=== PATIENT | female | born 1930 | race Caucasian/White ===

== ENCOUNTER 2017-05-14 15:04 | Emergency (ER) | payer MEDICARE ==
[~2017-05-14] VITALS: Ht 152.4 cm; Wt 50.0 kg
[~2017-05-14 15:04] MED LIST: AMLO2.5T PO; ASPI81 PO; DEXI60CA3 PO; FISH100020 PO; LOSA25TA31 PO; NITR0.4S SL; TAB-TAB PO; ZOFR4TAB3 SL
[2017-05-14 15:06] VITALS: BP 164/70; PULSE 78; RESP 15; TEMP 98.2; O2SAT 98
--- NOTE | 2017-05-14 15:43 | PD ---
Physical Exam Time Seen by Provider: 15:41 Narrative 86 y/o female here for evaluation of L shoulder pain after tripping/falling this morning. Vital signs reviewed. Seen at triage desk. Awaiting bed placement. Data Data Last Documented VS Vital Signs Date Time Temp Pulse Resp B/P Pulse Ox O2 Delivery O2 Flow Rate FiO2 05/14/17 15:06 98.2 78 15 164/70 98 MDM Medical Record Reviewed: Yes Supervised Visit with OLBO: Hong Flores May 14, 2017 15:42
[2017-05-14] MEDS ORDERED: COZA100T PO (17:29)
[2017-05-14] MEDS ORDERED: NAME5TAB2 PO (17:29)
[2017-05-14] MEDS ORDERED: ZANT150T2 PO (17:29)
[2017-05-14] MEDS ORDERED: ZOCO10TA PO (17:29)
[2017-05-14] MEDS ORDERED: ARIC10TA2 PO (17:29)
[2017-05-14] MEDS ORDERED: ASPI1TAB91 PO (17:39)
--- NOTE | 2017-05-14 18:01 | PD ---
HPI Chief Complaint: Musculoskeletal Complaint Time Seen by Provider: 17:00 Travel History International Travel<30 days: No Contact w/Intl Traveler<30days: No Traveled to known affect area: No History of Present Illness HPI 86-year-old female presents emergency department for evaluation of left anterior shoulder pain. Patient reports she had a mechanical fall this morning while in her home. She reports she tripped on her slippers and fell forward injuring the left shoulder. Patient denies head injury. No loss of consciousness. Patient is not anticoagulated. She denies headache, visual changes, chest pain, shortness of breath, abdominal pain. She reports normal sensation in the left upper extremity but has pain with range of motion of the shoulder. PFSH Past Medical History Anxiety: Yes Depression: No Cancer: No Cardiovascular Problems: Yes High Cholesterol: Yes Chemotherapy: No Chest Pain: Yes Congestive Heart Failure: No Endocrine: No Gastrointestinal Disorders: No GERD: Yes Genitourinary: No Hypertension: Yes Immune Disorder: No Musculoskeletal: No Neurologic: No Psychiatric: No Reproductive: No Respiratory: No Radiation Therapy: No Tetanus Vaccination: > 5 Years ?: Not : 3 Para: 3 Past Surgical History Cholecystectomy: Yes Hysterectomy: Yes Social History Alcohol Use: No Tobacco Use: No Substance Use: No Allergies-Medications (Allergen,Severity, Reaction): Coded Allergies: No Known Allergies (Verified , 05/14/17) Reported Meds & Prescriptions Reported Meds & Active Scripts Active Reported Aspirin Adult Low Strength (Aspirin) 81 Mg Tabdr 81 Mg PO DAILY Cozaar (Losartan Potassium) 100 Mg Tab 100 Mg PO DAILY Namenda (Memantine) 5 Mg Tab 5 Mg PO BID Aricept (Donepezil HCl) 10 Mg Tablet 10 Mg PO HS Zocor (Simvastatin) 10 Mg Tab 10 Mg PO HS Zantac (Ranitidine HCl) 150 Mg Tab 150-300 Mg PO HS Take 45 minutes before bedtime Review of Systems Except as stated in HPI: all other systems reviewed are Neg General / Constitutional: No: Fever Eyes: No: Visual changes HENT: No: Headaches Cardiovascular: No: Chest Pain or Discomfort Respiratory: No: Shortness of Breath Gastrointestinal: No: Abdominal Pain Genitourinary: No: Dysuria Musculoskeletal: Positive: Other (left shoulder pain) Physical Exam Narrative GENERAL: Alert, well-appearing female in no acute distress. SKIN: Focused skin assessment warm/dry. No ecchymosis or abrasions. HEAD: Atraumatic. Normocephalic. EYES: Pupils equal and round. No scleral icterus. No injection or drainage. ENT: No nasal bleeding or discharge. Mucous membranes pink and moist. NECK: Trachea midline. No JVD. No cervical midline tenderness. CARDIOVASCULAR: Regular rate and rhythm. No murmur appreciated. CHEST: Mild left upper anterior chest wall tenderness palpation. No crepitus. RESPIRATORY: No accessory muscle use. Clear to auscultation. Breath sounds equal bilaterally. GASTROINTESTINAL: Abdomen soft, non-tender, nondistended. Hepatic and splenic margins not palpable. MUSCULOSKELETAL: No obvious deformities. No clubbing. No cyanosis. No edema. Left upper extremity: Point tenderness to the anterior left shoulder and proximal humerus. No deformity. Limited ROM. Arm held in abduction against the body. NEUROLOGICAL: Awake and alert. No obvious cranial nerve deficits. Motor grossly within normal limits. Normal speech. PSYCHIATRIC: Appropriate mood and affect; insight and judgment normal. Data Data Last Documented VS Vital Signs Date Time Temp Pulse Resp B/P Pulse Ox O2 Delivery O2 Flow Rate FiO2 05/14/17 15:06 98.2 78 15 164/70 98 Orders Shoulder, Complete (>2vws) (05/14/17 ) Chest, Single Ap (05/14/17 ) [facility] Medical Decision Making Medical Screen Exam Complete: Yes Emergency Medical Condition: Yes Differential Diagnosis Proximal humerus fracture, left shoulder dislocation, rib fracture, contusions Narrative Course 86-year-old female with chief complaint of left shoulder pain status post mechanical fall earlier today. On exam patient has point tenderness in the left anterior shoulder and proximal humerus. Patient also has mild point tenderness in the left upper anterior chest wall without crepitus. The upper extremity is neurovascularly intact. Shoulder x-ray and chest x-ray pending. Left shoulder x-ray : Acute nondisplaced fracture of the greater tuberosity. No dislocation. Chest x-ray: Mild cardiomegaly. No pneumothorax. No rib fractures. Diagnostic findings discussed with patient and family. Patient was placed in a sling. She was given pain medication. She was instructed to follow up with orthopedics. Return precautions discussed. Patient and family agree to plan. Diagnosis Primary Impression: Greater tuberosity of humerus fracture Qualified Code: S42.255A - Closed nondisplaced fracture of greater tuberosity of left humerus, initial encounter Referrals: Orthopedist Additional Instructions: With the sling as discussed. Make an appointment for follow-up with orthopedic. Take the pain medication as needed for pain. Return to the emergency department if he developed new or worsening symptoms. Scripts Hydrocodone-Acetaminophen ([place])5-325 mg Tab1 Tab PO Q6H PRN (PAIN) #15 TAB Ref 0 Prov:Sharon Hodge 05/14/17 Disposition: 01 DISCHARGE HOME Condition: Stable Sharon Hodge May 14, 2017 18:01
--- NOTE | 2017-05-14 18:31 | RADRPT ---
EXAM DATE/TIME: 05/14/2017 17:47 [facility] COMPARISON: No previous studies available for comparison. INDICATIONS : Shoulder pain from fall. MEDICAL HISTORY : None. SURGICAL HISTORY : None. ENCOUNTER: Initial ACUITY: 1 day PAIN SCORE: 5/10 LOCATION: Left shoulder FINDINGS: 4 views of the left shoulder reveal an acute fracture involving the greater tuberosity. No extension to the articular surface of the humeral head appreciated. No significant distraction of the fracture fragments. The medial cortical margin of the humeral neck appears intact. Mild degenerative changes a t the a.c. joint. Soft tissues are unremarkable. Minimal linear atelectasis within the lingula. CONCLUSION: 1. Acute nondisplaced fracture involving the greater tuberosity. Koko Alcantara Jr., MD on May 14, 2017 at 18:28 Board Certified Radiologist. This report was verified electronically.
--- NOTE | 2017-05-14 18:31 | RADRPT ---
EXAM DATE/TIME: 05/14/2017 17:51 [facility] COMPARISON: No previous studies available for comparison. INDICATIONS : Shortness of breath from fall. MEDICAL HISTORY : None. SURGICAL HISTORY : None. ENCOUNTER: Initial ACUITY: 1 day PAIN SCORE: 0/10 LOCATION: Bilateral chest FINDINGS: A single view of the chest demonstrates the lungs to be symmetrically aerated without evidence of mas s, infiltrate or effusion. Linear atelectasis is seen within the lingula. Calcified granuloma within the right midlung. Mild cardiomegaly. Osseous structures are intact. CONCLUSION: 1. Mild cardiomegaly. 2. Lingular atelectasis. Koko Alcantara Jr., MD on May 14, 2017 at 18:29 Board Certified Radiologist. This report was verified electronically.
[2017-05-14] MEDS ORDERED: NORC5TAB PO (18:50)
[2017-05-14] MEDS ORDERED: oxyCODONE/ACETAMINOPHEN 5 MG/325 MG TAB PO ONE (19:15)
== END 2017-05-14 19:30 | disposition home or self-care (01) ==
LOC: NEPD 15:04
DX: S42.255A Nondisplaced fracture of greater tuberosity of left humerus, initial encounter for closed fracture (principal); R06.02 Shortness of breath; W01.10XA Fall on same level from slipping, tripping and stumbling with subsequent striking against unspecified object, initial encounter; Y93.89 Activity, other specified; Y92.009 Unspecified place in unspecified non-institutional (private) residence as the place of occurrence of the external cause
CPT/HCPCS: 71010; 73030; 99283

== ENCOUNTER 2018-08-11 13:56 | Inpatient (IN) ==
[2018-08-11 15:23] LABS: Baso % (Auto) 0.4 % (0.0-2.0); Eos % (Auto) 0.5 % (0.0-4.0); Hematocrit 38.1 % (35.0-46.0); Hemoglobin 12.6 gm/dL (11.6-15.3); Lymph # (Auto) 0.9 th/mm3 (1.0-4.8); Lymph % (Auto) 9.7 % (9.0-44.0); Mean Corpuscular HGB Conc 33.2 % (32.0-36.0); Mean Corpuscular Hemoglobin 30.6 pg (27.0-34.0); Mean Corpuscular Volume 92.2 fL (80.0-100.0); Mean Platelet Volume 12.2 fL (7.0-11.0); Mono # (Auto) 0.6 th/mm3 (0.0-0.9); Mono % (Auto) 7.1 % (0.0-8.0); Neut # (Auto) 7.4 th/mm3 (1.8-7.7); Neut % (Auto) 82.3 % (16.0-70.0); Platelet Count 174 th/mm3 (150-450); Red Blood Count 4.13 mil/mm3 (4.00-5.30); Red Cell Distribution Width 13.6 % (11.6-17.2)
--- NOTE | 2018-08-11 15:36 | XR ---
EXAM DATE: 08/11/2018 2:23 PM EDT AGE/SEX: 88 years / Female INDICATIONS: . Chest pain with shortness of breath. CLINICAL DATA: This is the patient's initial encounter. Patient reports that signs and symptoms have been present for 1 day and indicates a pain score of 3/10. MEDICAL/SURGICAL HISTORY: Hypertension. Cholecystectomy. Hysterectomy. COMPARISON: [facility] – [place], CHEST SINGLE AP, 05/14/2017. . FINDINGS: PA and lateral views of the chest demonstrates cardiomegaly with increase in pulmonary vascularity wi th bibasilar densities. Interstitial densities and small bilateral pleural effusions.. The cardiomedi astinal contours are unremarkable. Osseous structures are intact. CONCLUSION: 1. Small bilateral pleural effusions and bibasilar densities likely atelectasis. 2. Cardiomegaly with some minimal interstitial edema. Electronically signed by: Hudson Gonzales MD 08/11/2018 3:34 PM EDT
[2018-08-11 16:28] LABS: Alanine Aminotransferase 128 U/L (10-53); Albumin 3.3 g/dL (3.4-5.0); Anion Gap 10 meq/L (5-15); Aspartate Aminotransferase 55 U/L (15-37); Blood Urea Nitrogen 24 mg/dL (7-18); Carbon Dioxide 23.5 meq/L (21.0-32.0); Chloride 110 meq/L (98-107); Glomerular Filtration Rate 46 mL/min (>89); Glucose,Random 137 mg/dL (74-106); Potassium 4.4 meq/L (3.5-5.1); Sodium 143 meq/L (136-145)
[2018-08-11 16:32] LABS: Alkaline Phosphatase 206 U/L (45-117); Troponin I 0.06 ng/mL (0.02-0.05)
--- NOTE | 2018-08-11 17:36 | ED ---
HPI General Chief Complaint: Arrhythmia / Palpitations Stated Complaint: Abd pain/irregular heart rate Time Seen by Provider: 08/11/18 17:02 History of Present Illness HPI narrative: Patient is a 88-year-old female that presents for the evaluation of abnormal heart rate and abdominal pain. The patient's son is present in the room and helps to provide some of the history. The patient's son states that the patient was seen by her regular provider last week for chronic back and right hip pain. The patient's son states that the patient was prescribed a pain medication. The patient's son states that the patient began to have upper abdominal pain last Saturday after she started the new pain medication. The patient's son stated that on Saturday he read about the side effects of the pain medication and decided to discontinue her pain medication. The patient's son states that he spoke on the phone with the patient's primary care doctor who suggested they go to the ER for further evaluation. The patient denies any current abdominal pain. She states that when she did have pain it was in the epigastric region. The patient currently denies any pain. She denies any chest pain, shortness of breath, or palpitations. She states that she has had some diarrhea for the past two day days but denies any blood in the stool. She also denies any nausea or vomiting. Related Data Home Medications Medication Instructions Recorded Confirmed aspirin [Aspirin Low Dose] 81 mg PO DAILY 08/11/18 08/11/18 losartan 50 mg PO DAILY 08/11/18 08/11/18 memantine [Namenda] 10 mg PO BID 08/11/18 08/11/18 simvastatin 10 mg PO QPM 08/11/18 08/11/18 tramadol 50 mg PO Q12HR PRN 08/11/18 08/11/18 Allergies Allergy/AdvReac Type Severity Reaction Status Date / Time No Known Allergies Allergy Uncoded 05/14/17 17:16 Review of Systems ROS: all other systems reviewed are negative [facility] Medical History Medical History Dementia (Acute) Diaphragmatic hernia without obstruction or gangrene (Acute) GERD with esophagitis (Acute) H/O: hysterectomy (Acute) High cholesterol (Acute) Hypertension (Acute) Social History Social History Substance History: No History of Abuse Second Hand Smoke Exposure: No Smoking Status: Former smoker How Often Do You Have a Drink Containing Alcohol: Never Recent Travel in [facility] within the Last 8 Weeks: No Recent Out of Country Travel within the Last 8 Weeks: No Immunization History Tetanus Immunization: Unsure Exam Narrative Exam Narrative: GENERAL: Well appearing SKIN: Focused skin assessment warm/dry. HEAD: Atraumatic. Normocephalic. EYES: Pupils equal and round. No scleral icterus. No injection or drainage. ENT: No nasal bleeding or discharge. Mucous membranes pink and moist. Tongue is midline. No uvula deviation. NECK: Trachea midline. No JVD. CARDIOVASCULAR: Regular rate and rhythm. No murmur appreciated. RESPIRATORY: No accessory muscle use. Clear to auscultation. Breath sounds equal bilaterally. GASTROINTESTINAL: Abdomen soft, non-tender, nondistended. Hepatic and splenic margins not palpable. Does have what appears to be chronic hernias to the lower abdomen MUSCULOSKELETAL: No obvious deformities. No clubbing. No cyanosis. No edema. Full range of motion of the upper and lower extremities bilaterally. 2+ pulses bilaterally. NEUROLOGICAL: Awake and alert. No obvious cranial nerve deficits. Motor grossly within normal limits. Normal speech. PSYCHIATRIC: Appropriate mood and affect; insight and judgment normal. Course Initial Documented Vital Signs Temperature 97.5 F L 08/11/18 14:03 Pulse Rate 44 L 08/11/18 14:03 Respiratory Rate 15 08/11/18 14:03 Blood Pressure 197/79 H 08/11/18 14:03 Pulse Oximetry 96 08/11/18 14:03 Last Documented Vital Signs Temperature 97.7 F 08/11/18 17:36 Pulse Rate 45 L 08/11/18 17:36 Respiratory Rate 16 08/11/18 17:36 Blood Pressure 176/70 H 08/11/18 17:36 Pulse Oximetry 97 08/11/18 17:36 Medical Decision Making MDM Narrative Medical decision making narrative: 88-year-old female who presents to the ED for evaluation of bradycardia and epigastric pain. Patient was properly examined and was found to have signs and symptoms consistent with appears to be bradycardia. Unclear etiology of the symptoms. Patient can completely asymptomatic at this time. She does have some dementia so this may attribute to why she does not complain about anything. Labs and imaging were done. Labs and imaging did show bradycardia what appears to be CHF exacerbation. At this time recommend admission for further evaluation as patient and family member have never heard of the term CHF or heart failure in the past. Patient herself does not take any diuretics. Suspect that this could potentially be a new finding. She does also have a positive troponin. This will need to be further workup and patient. Patient agrees to admission. Family agrees with admission. Case discussed with my attending who agrees to admission plan. Case discussed with Dr. Matias who agrees to admission to her service. Medical Screen Exam Complete: Yes Emergency Medical Condition: Yes Differential Diagnosis Differential Diagnosis: ACS versus bradycardia versus CHF versus ACSVersus abdominal pain Medical Records Medical records reviewed: Yes I reviewed the patient's medical records. Lab Data Lab results reviewed: Yes I reviewed the patient's lab results. Lab results narrative: Troponin elevated at 0.05 CK-MB negative. Result diagrams: 08/11/18 14:50 08/11/18 14:50 Lab Results 08/11/18 08/11/18 Range/Units 14:50 14:50 WBC 9.0 (4.0-11.0) th/mm3 RBC 4.13 (4.00-5.30) mil/mm3 Hgb 12.6 (11.6-15.3) gm/dL Hct 38.1 (35.0-46.0) % MCV 92.2 (80.0-100.0) fL MCH 30.6 (27.0-34.0) pg MCHC 33.2 (32.0-36.0) % RDW 13.6 (11.6-17.2) % Plt Count 174 (150-450) th/mm3 MPV 12.2 H (7.0-11.0) fL Neut % (Auto) 82.3 H (16.0-70.0) % Lymph % (Auto) 9.7 (9.0-44.0) % Stevens % (Auto) 7.1 (0.0-8.0) % Eos % (Auto) 0.5 (0.0-4.0) % Baso % (Auto) 0.4 (0.0-2.0) % Neut # (Auto) 7.4 (1.8-7.7) th/mm3 Lymph # (Auto) 0.9 L (1.0-4.8) th/mm3 Stevens # (Auto) 0.6 (0.0-0.9) th/mm3 Eos # (Auto) 0.0 (0.0-0.4) th/mm3 Baso # (Auto) 0.0 (0.0-0.2) th/mm3 WBC Differential . Differential Comment Auto diff final Sodium 143 (136-145) meq/L Potassium 4.4 (3.5-5.1) meq/L Chloride 110 H (98-107) meq/L Carbon Dioxide 23.5 (21.0-32.0) meq/L Anion Gap 10 (5-15) meq/L BUN 24 H (7-18) mg/dL Creatinine 1.11 H (0.50-1.00) mg/dL Estimated GFR 46 L (>89) mL/min Random Glucose 137 H (74-106) mg/dL Calcium 9.0 (8.5-10.1) mg/dL Total Bilirubin 0.4 (0.2-1.0) mg/dL AST 55 H (15-37) U/L ALT 128 H (10-53) U/L Alkaline Phosphatase 206 H (45-117) U/L Troponin I 0.06 H (0.02-0.05) ng/mL Total Protein 7.0 (6.4-8.2) g/dL Albumin 3.3 L (3.4-5.0) g/dL Imaging Data Attestation: I personally reviewed and interpreted this imaging study as follows : Radiologist's impression: Chest X-Ray 08/11/18 14:23 CONCLUSION: 1. Small bilateral pleural effusions and bibasilar densities likely atelectasis. 2. Cardiomegaly with some minimal interstitial edema. Abdomen/Pelvis CT 08/11/18 17:20 CONCLUSION: 1. Bilateral inguinal hernias with multiple loops of small bowel in the right lateral hernia. No dilated loops of small or large bowel. 2. 12 mm densely enhancing lesion in the posterior segment of the right lobe of the liver. Both malignant and benign causes can create this appearance and recommend complete workup on a nonemergent basis. 3. Moderate-sized bilateral pleural effusions and patchy bilateral lower lobe. ECG Data Attestation: I personally reviewed and interpreted this ECG as follows: Interpretation: EKG shows sinus bradycardia with no sign of acute ischemia. Read by me and attending. Discharge Plan Discharge Disposition Patient Disposition: 30 Still Patient Discharge Details Diagnosis: Acute exacerbation of CHF (congestive heart failure), Elevated troponin, Liver mass Physicians Team ED Provider: Loco Jaimes ED Midlevel Provider: Keith Brink Primary Care Provider: Rodolfo Be Attending Provider: Dee Dee Matias Discharge Interventions Interventions: Vital Signs Last Done: 08/11/18 14:03 Status ED Status: Admitted Observation Patient
--- NOTE | 2018-08-11 18:26 | CT ---
EXAM DATE: 08/11/2018 5:26 PM EDT AGE/SEX: 88 years / Female INDICATIONS: Epigastric pain and diarrhea for four days. CLINICAL DATA: This is the patient's initial encounter. Patient reports that signs and symptoms have been present for 4 - 6 days and indicates a pain score of 4/10. MEDICAL/SURGICAL HISTORY: Gastroesophageal reflux disease. Hypertension. Hernia. Hysterectomy . ORAL CONTRAST: No oral contrast ingested. RADIATION DOSE: 6.65 CTDI (mGy) COMPARISON: No prior exams available for comparison. TECHNIQUE: Multiple contiguous axial images were obtained through the abdomen and pelvis following b olus infusion of 85 ml Omnipaque 350 (iohexol) nonionic water-soluble contrast as a single exam dos e. No oral contrast ingested. Using automated exposure control and adjustment of the mA and/or kV ac cording to patient size, radiation dose was kept as low as reasonably achievable to obtain optimal di agnostic quality images. DICOM format image data is available electronically for review and comparis on. FINDINGS: Lower Lungs: Moderate size bilateral pleural effusions measuring 3.4 cm on the right and 1.8 cm on th e left. There is peribronchial thickening and partially consolidative infiltrates in both lower lungs . Liver: Normal liver size. A solitary 12 mm enhancing lesion in the posterior right lobe with fairly u niform enhancement. No associated calcification. No biliary ductal dilatation. Cholecystectomy. The c ommon hepatic duct does not appear to be dilated. Spleen: Homogeneous density without enlargement. Pancreas: Unremarkable without mass or calcification. Kidneys: Normal in size and shape. No evidence of mass or hydronephrosis. Adrenal Glands: Unremarkable. Aorta: The aorta and proximal iliac vessels are grossly unremarkable without aneurysmal dilation. Bowel/Mesentery: No dilated loops of small or large bowel. Multiple sigmoid diverticula without radi ographic evidence of diverticulitis. Abdominal Wall: Intact. Retroperitoneum: No evidence of adenopathy in the retrocrural, para-aortic, or deep pelvic regions. Bladder: Contours are smooth. Reproductive Organs: No abnormal masses or calcifications seen. Inguinal: Bilateral inguinal hernias with multiple loops of small bowel in the right inguinal hernia and fat in the left hernia. Bony Structures: Moderate degenerative changes in posterior elements of the lumbar spine.. CONCLUSION: 1. Bilateral inguinal hernias with multiple loops of small bowel in the right lateral hernia. No dil ated loops of small or large bowel. 2. 12 mm densely enhancing lesion in the posterior segment of the right lobe of the liver. Both sandra gnant and benign causes can create this appearance and recommend complete workup on a nonemergent bas is. 3. Moderate-sized bilateral pleural effusions and patchy bilateral lower lobe. Electronically signed by: Koko Polo MD 08/11/2018 6:25 PM EDT
[2018-08-11] MEDS: Heparin - SQ 10,000 UNITS/ML Vial SQ SCH (21:00)
[2018-08-11 22:23] LABS: Troponin I 0.05 ng/mL (0.02-0.05)
--- NOTE | 2018-08-11 22:34 | P.HPIM ---
History of Present Illness Service: [facility] Primary Care Physician: Rodolfo Be MD History of Present Illness: 88 y/o female with a history of dementia, gerd, htn and hld was brought to the ER by her son for complaints of abdominal pain. During examination patient's son was not at the bedside and due to to the history of dementia patient is a poor historian. She does complain of epigastric pain, worse with a deep breath, no radiation or nausea or vomiting. She was able to eat dinner tonight with no complaints. She denies any chest pain, but states she feels sob when taking a deep breath. No fevers, chills, constipation, or dysuria noted. According to the ER report they stated the son states that the patient was seen by her regular provider last week for chronic back and right hip pain. The patient's son states that the patient was prescribed a pain medication. The patient's son states that the patient began to have upper abdominal pain last Saturday after she started the new pain medication. The patient's son stated that on Saturday he read about the side effects of the pain medication and decided to discontinue her pain medication. The patient's son states that he spoke on the phone with the patient's primary care doctor who suggested they go to the ER for further evaluation. [facility] - History History Provided By: Patient - Medical History Medical History: Medical History (Last Reviewed 08/11/18 @ 23:41 by RADHA Lozano) Dementia Diaphragmatic hernia without obstruction or gangrene GERD with esophagitis High cholesterol Hypertension - Surgical History Surgical History: Surgical History (Last Reviewed 08/11/18 @ 23:41 by RADHA Lozano) H/O: hysterectomy - Family History Family History: Family History (Last Reviewed 08/11/18 @ 23:42 by RADHA Lozano) Other Family history normal - Social History I have reviewed the patient's Social History: Yes - Tobacco History Second Hand Smoke Exposure: No Tobacco Use In Past 30 Days: No Smoking Status: Former smoker Tobacco Type: Cigarettes - Alcohol History How Often Do You Have a Drink Containing Alcohol: Never - Substance Use History Substance History: No History of Abuse - Travel History Recent Travel in the [place] Within the Last 8 Weeks: No Recent Travel Out of the Country Within the Last 8 Weeks: No - Immunization History Tetanus Immunization: Unsure Medications and Allergies Active Medications: Active Medications Furosemide (Lasix Inj) 20 mg IV.PUSH ONCE ONE Stop: 08/11/18 22:17 Heparin Sodium (Porcine) (Heparin Inj) 5,000 units SQ Q12H [facility] Last Admin: 08/11/18 21:00 Dose: Not Given Losartan Potassium (Cozaar) 50 mg PO HS [facility] Last Admin: 08/11/18 20:56 Dose: 50 mg Ondansetron HCl (Zofran Inj) 4 mg IV.PUSH Q6H PRN PRN Reason: NAUSEA OR VOMITING Allergies Allergy/AdvReac Type Severity Reaction Status Date / Time No Known Allergies Allergy Uncoded 05/14/17 17:16 Home Medications Medication Instructions Recorded Confirmed Type aspirin [Aspirin Low Dose] 81 mg PO DAILY 08/11/18 08/11/18 History losartan 50 mg PO DAILY 08/11/18 08/11/18 History memantine [Namenda] 10 mg PO BID 08/11/18 08/11/18 History simvastatin 10 mg PO QPM 08/11/18 08/11/18 History tramadol 50 mg PO Q12HR PRN 08/11/18 08/11/18 History Exam Vital signs: Vital Signs 08/11/18 14:03 08/11/18 16:21 08/11/18 16:24 Temperature 97.5 F L 98.0 F Pulse Rate 44 L 50 L 44 L Respiratory Rate 15 22 Blood Pressure 197/79 H 202/85 H Pulse Oximetry 96 91 L 08/11/18 16:32 08/11/18 17:36 08/11/18 19:20 Temperature 97.7 F Pulse Rate 42 L 45 L 46 L Respiratory Rate 21 16 18 Blood Pressure 193/80 H 176/70 H 172/71 H Pulse Oximetry 94 L 97 96 08/11/18 22:04 Temperature Pulse Rate 49 L Respiratory Rate 16 Blood Pressure 118/76 Pulse Oximetry 96 Intake & Output 08/11/18 08/11/18 08/12/18 06:59 18:59 06:59 Intake Total 340 / 340 Balance 340 / 340 Weight 54.431 kg Intake: Oral 340 / 340 Narrative: GENERAL: This is a well-nourished, well-developed patient, in no apparent distress. CARDIOVASCULAR:bradycardic rate and rhythm without murmurs, gallops, or rubs. RESPIRATORY: bilateral lower bases crackles GASTROINTESTINAL: Abdomen soft, epigastric tenderness, nondistended. Normal active bowel sounds MUSCULOSKELETAL: +1 pedal pitting edema bilateral NEURO: Alert & Oriented x2-3. Moves all ext x4 Results - Labs CBC & Chem 7: 08/11/18 14:50 08/11/18 14:50 Labs: Short CBC 08/11/18 Range/Units 14:50 WBC 9.0 (4.0-11.0) th/mm3 Hgb 12.6 (11.6-15.3) gm/dL Hct 38.1 (35.0-46.0) % Plt Count 174 (150-450) th/mm3 BMP 08/11/18 14:50 Sodium 143 Potassium 4.4 Chloride 110 H Carbon Dioxide 23.5 BUN 24 H Creatinine 1.11 H Calcium 9.0 Cardiac Enzymes 08/11/18 Range/Units 14:50 Troponin I 0.06 H (0.02-0.05) ng/mL Liver Function 08/11/18 Range/Units 14:50 Total Bilirubin 0.4 (0.2-1.0) mg/dL AST 55 H (15-37) U/L ALT 128 H (10-53) U/L Alkaline Phosphatase 206 H (45-117) U/L Albumin 3.3 L (3.4-5.0) g/dL - Imaging Impressions Chest X-Ray 08/11/18 14:23 CONCLUSION: 1. Small bilateral pleural effusions and bibasilar densities likely atelectasis. 2. Cardiomegaly with some minimal interstitial edema. Abdomen/Pelvis CT 08/11/18 17:20 CONCLUSION: 1. Bilateral inguinal hernias with multiple loops of small bowel in the right lateral hernia. No dilated loops of small or large bowel. 2. 12 mm densely enhancing lesion in the posterior segment of the right lobe of the liver. Both malignant and benign causes can create this appearance and recommend complete workup on a nonemergent basis. 3. Moderate-sized bilateral pleural effusions and patchy bilateral lower lobe. Caprini VTE Risk Assessment Caprini VTE Risk Assessment: No/Low Risk (score <= 1) Caprini Risk Assessment Model: Point Value = 1 Point Value = 2 Point Value = 3 Point Value = 5 Age 41-60 Minor surgery BMI > 25 kg/m2 Swollen legs Varicose veins or History of unexplained or recurrent spontaneous Oral contraceptives or hormone replacement Sepsis (< 1 month) Serious lung disease, including pneumonia (< 1 month) Abnormal pulmonary function Acute myocardial infarction Congestive heart failure (< 1 month) History of inflammatory bowel disease Medical patient at bed rest Age 61-74 Arthroscopic surgery Major open surgery (> 45 min) Laparoscopic surgery (> 45 min) Malignancy Confined to bed (> 72 hours) Immobilizing plaster cast Central venous access Age >= 75 History of VTE Family history of VTE Factor V Leiden Prothrombin [id number] Lupus anticoagulant Anticardiolipin antibodies Elevated serum homocysteine Heparin-induced thrombocytopenia Other congenital or acquired thrombophilia Stroke (< 1 month) Elective arthroplasty Hip, pelvis, or leg fracture Acute spinal cord injury (< 1 month) Prophylaxis Regimen: Total Risk Factor Score Risk Level Prophylaxis Regimen 0-1 Low Early ambulation 2 Moderate Order ONE of the following: *Sequential Compression Device (SCD) *Heparin 5000 units SQ BID 3-4 Higher Order ONE of the following medications: *Heparin 5000 units SQ TID *Enoxaparin/Lovenox 40 mg SQ daily (WT < 150 kg, CrCl > 30 mL/min) *Enoxaparin/Lovenox 30 mg SQ daily (WT < 150 kg, CrCl > 10-29 mL/min) *Enoxaparin/Lovenox 30 mg SQ BID (WT < 150 kg, CrCl > 30 mL/min) AND/OR *Sequential Compression Device (SCD) 5 or more Highest Order ONE of the following medications: *Heparin 5000 units SQ TID (Preferred with Epidurals) *Enoxaparin/Lovenox 40 mg SQ daily (WT < 150 kg, CrCl > 30 mL/min) *Enoxaparin/Lovenox 30 mg SQ daily (WT < 150 kg, CrCl > 10-29 mL/min) *Enoxaparin/Lovenox 30 mg SQ BID (WT < 150 kg, CrCl > 30 mL/min) AND *Sequential Compression Device (SCD) Assessment and Plan - Plan 88 y/o female with a history of dementia, gerd, htn and hld was brought to the ER by her son for complaints of abdominal pain. During examination patient's son was not at the bedside and due to to the history of dementia patient is a poor historian. New onset CHF, BNP [address] reviewed and shows Moderate-sized bilateral pleural effusions and patchy bilateral lower lobe. -Lasix x 1 given -Consult to cardiology -2d echo ordered Elevated troponin, troponin .06 -Serial troponin and ekg Bradycardia EKG shows bradycardia with first degree block -Monitor telemetry -Await cardiology evaluation -Monitor patient in [facility] Epigastric pain with Transaminitis Abdominal CT reviewed and shows Bilateral inguinal hernias with multiple loops of small bowel in the right lateral hernia. No dilated loops of small or large bowel, and a 12 mm densely enhancing lesion in the posterior segment of the right lobe of the liver. -Trend LFTs -Liver US ordered -Avoid hepatotoxins -Protonix IV BID -Consult GI if needed Hypertension, currently elevated -Resume home losartan -Avoid beta blockers DVT prophylaxis: Heparin sq Discussed Condition With: Patient and RN
[2018-08-11] MEDS: Pantoprazole Inj 40 MG Vial IV.PUSH SCH (23:07)
[2018-08-12] MEDS ORDERED: Sodium Chloride 0.9% 2 ML Flush PRN IV.FLUSH (03:31)
--- NOTE | 2018-08-12 08:39 | US ---
EXAM DATE: 08/12/2018 12:00 AM EDT AGE/SEX: 88 years / Female INDICATIONS: Abdominal pain after taking new medication. CLINICAL DATA: This is the patient's initial encounter. Patient reports that signs and symptoms have been present for 1 week and indicates a pain score of 0/10. MEDICAL/SURGICAL HISTORY: Dementia. Gastroesophageal reflux disease. Hypercholesterolemia. H ypertension. Diaphragmatic hernia without obstruction or gangrene. Hysterectomy. Cholecystectomy. [place] [facility] [place]. . MEASUREMENTS: Liver:__ 16.3 cm. Common Bile Duct:__ 11mm. Right Kidney:__ 9.4 x 5.2 x 3.7 cm. FINDINGS: Liver: Normal echotexture without focal lesion or ductal dilatation. Portal Vein: Hepatopedal flow seen in portal vein. Common Duct: Common bile duct is dilated measuring up to 11 mm. Gallbladder: Surgically absent. Pancreas: The visualized portions are within normal limits Right Kidney: Normal echotexture and cortical thickness. No mass or hydronephrosis. Other: Small bilateral pleural effusions. CONCLUSION: 1. Status post cholecystectomy with prominent common bile duct which may reflect reservoir effect. 2. Small enhancing mass in the posterior right lobe of the liver noted on CT exam is not demonstrate d on ultrasound exam. Again, recommend further evaluation on an outpatient nonemergent basis. 3. Small bilateral effusions. Electronically signed by: Howard Martinez MD 08/12/2018 8:38 AM EDT
--- NOTE | 2018-08-12 09:10 | P.PNIM ---
Subjective Interval history: f/u; chf with sonchristiane sob. on five liters of oxygen via N/C. awake but confused and reportedly had a fall earlier and had to be placed on restraints. denies pain. no fever. d/w the RN. Physical Exam Vital signs: Vital Signs 08/11/18 14:03 08/11/18 16:21 08/11/18 16:24 Temperature 97.5 F L 98.0 F Pulse Rate 44 L 50 L 44 L Respiratory Rate 15 22 Blood Pressure 197/79 H 202/85 H Pulse Oximetry 96 91 L 08/11/18 16:32 08/11/18 17:36 08/11/18 19:20 Temperature 97.7 F Pulse Rate 42 L 45 L 46 L Respiratory Rate 21 16 18 Blood Pressure 193/80 H 176/70 H 172/71 H Pulse Oximetry 94 L 97 96 08/11/18 22:04 08/11/18 22:46 08/12/18 02:00 Temperature Pulse Rate 49 L 49 L Respiratory Rate 16 16 Blood Pressure 118/76 160/70 H Pulse Oximetry 96 97 95 08/12/18 03:26 08/12/18 03:40 08/12/18 04:48 Temperature Pulse Rate 47 L 57 L Respiratory Rate 26 H 23 Blood Pressure 197/84 H Pulse Oximetry 96 96 08/12/18 04:53 08/12/18 05:54 08/12/18 06:38 Temperature Pulse Rate 57 L 57 L 46 L Respiratory Rate 28 H 28 H Blood Pressure 136/61 136/61 Pulse Oximetry 94 L 94 L 08/12/18 08:31 Temperature Pulse Rate 46 L Respiratory Rate 20 Blood Pressure 205/86 H Pulse Oximetry 93 L Intake & Output 08/11/18 08/12/18 08/12/18 18:59 06:59 18:59 Intake Total 340 / 340 Balance 340 / 340 Weight 54.431 kg Intake: Oral 340 / 340 Other: Date of Last Bowel Movement 08/11/18 - Constitutional mild distress - Routine Respiratory Exam Present: CTA bilaterally, diminished air movement (in the bases.) - Routine Cardiovascular Exam Present: RRR - Routine Abdominal Exam Present: soft - Routine Extremities Exam Comments: mild bilateral pedal edema. - Routine Neurological Exam Present: alert (but confused.) Results - Labs CBC & Chem 7: 08/12/18 09:38 08/12/18 09:38 Laboratory Results - last 24 hr 08/11/18 08/11/18 08/11/18 14:50 14:50 14:50 WBC 9.0 RBC 4.13 Hgb 12.6 Hct 38.1 MCV 92.2 MCH 30.6 MCHC 33.2 RDW 13.6 Plt Count 174 MPV 12.2 H Neut % (Auto) 82.3 H Lymph % (Auto) 9.7 Loving % (Auto) 7.1 Eos % (Auto) 0.5 Baso % (Auto) 0.4 Neut # (Auto) 7.4 Lymph # (Auto) 0.9 L Loving # (Auto) 0.6 Eos # (Auto) 0.0 Baso # (Auto) 0.0 WBC Differential . Differential Comment Auto diff final Sodium 143 Potassium 4.4 Chloride 110 H Carbon Dioxide 23.5 Anion Gap 10 BUN 24 H Creatinine 1.11 H Estimated GFR 46 L POC Glucose Random Glucose 137 H Calcium 9.0 Total Bilirubin 0.4 AST 55 H ALT 128 H Alkaline Phosphatase 206 H Total Creatine Kinase Troponin I 0.06 H B-Natriuretic Peptide Total Protein 7.0 Albumin 3.3 L Lipase 98 08/11/18 08/11/18 08/12/18 14:50 21:02 04:47 WBC RBC Hgb Hct MCV MCH MCHC RDW Plt Count MPV Neut % (Auto) Lymph % (Auto) Loving % (Auto) Eos % (Auto) Baso % (Auto) Neut # (Auto) Lymph # (Auto) Loving # (Auto) Eos # (Auto) Baso # (Auto) WBC Differential Differential Comment Sodium Potassium Chloride Carbon Dioxide Anion Gap BUN Creatinine Estimated GFR POC Glucose 143 H Random Glucose Calcium Total Bilirubin AST ALT Alkaline Phosphatase Total Creatine Kinase 99 Troponin I 0.05 B-Natriuretic Peptide 615 H Total Protein Albumin Lipase - Imaging Impressions Chest X-Ray 08/11/18 14:23 CONCLUSION: 1. Small bilateral pleural effusions and bibasilar densities likely atelectasis. 2. Cardiomegaly with some minimal interstitial edema. Abdomen/Pelvis CT 08/11/18 17:20 CONCLUSION: 1. Bilateral inguinal hernias with multiple loops of small bowel in the right lateral hernia. No dilated loops of small or large bowel. 2. 12 mm densely enhancing lesion in the posterior segment of the right lobe of the liver. Both malignant and benign causes can create this appearance and recommend complete workup on a nonemergent basis. 3. Moderate-sized bilateral pleural effusions and patchy bilateral lower lobe. Liver Ultrasound 08/12/18 00:00 CONCLUSION: 1. Status post cholecystectomy with prominent common bile duct which may reflect reservoir effect. 2. Small enhancing mass in the posterior right lobe of the liver noted on CT exam is not demonstrated on ultrasound exam. Again, recommend further evaluation on an outpatient nonemergent basis. 3. Small bilateral effusions. Assessment and Plan - Plan New onset CHF, BNP [address] reviewed and shows Moderate-sized bilateral pleural effusions and patchy bilateral lower lobe. -patient is currently on five liters of oxygen via N/C -will consult IR for thoracentesis and follow the fluid studies -will check ABG -will start on Lasix -Consult to cardiology -2d echo ordered Elevated troponin, troponin .06 -Serial troponin and ekg Bradycardia EKG shows bradycardia with first degree block -Monitor telemetry -Await cardiology evaluation -Monitor patient in [facility] Transaminitis- due to CHF? Abdominal CT reviewed and shows Bilateral inguinal hernias with multiple loops of small bowel in the right lateral hernia. No dilated loops of small or large bowel, and a 12 mm densely enhancing lesion in the posterior segment of the right lobe of the liver. -Trend LFTs --Avoid hepatotoxins -Protonix IV BID -Consult GI if LFT's trending up. reported right hip pain after a questionable fall - check XR right hip Hypertension, currently elevated -Resumed home losartan -Avoid beta blockers Dementia - resume home meds fall; consult PT. DVT prophylaxis: Heparin sq Code Status: code status d/w the son; he will bring a copy of the living will. Discussed Condition With: the patient, her RN and the son.
[2018-08-12 09:19] LABS: ABG Base Excess -1.6 mmol/L (-2-2); ABG PCO2 32 mmHg (38-42); ABG PO2 59 mmHg (61-120)
[2018-08-12] MEDS: Sodium Chloride 0.9% 2 ML Flush BID IV.FLUSH SCH ×2 (09:33→22:30)
[2018-08-12] MEDS: Heparin - SQ 10,000 UNITS/ML Vial SQ SCH ×2 (09:33→22:30)
[2018-08-12 10:01] LABS: Baso % (Auto) 0.3 % (0.0-2.0); Eos % (Auto) 0.1 % (0.0-4.0); Hematocrit 40.1 % (35.0-46.0); Lymph # (Auto) 0.6 th/mm3 (1.0-4.8); Lymph % (Auto) 5.1 % (9.0-44.0); Mean Corpuscular HGB Conc 32.5 % (32.0-36.0); Mean Corpuscular Hemoglobin 29.9 pg (27.0-34.0); Mean Corpuscular Volume 91.9 fL (80.0-100.0); Mean Platelet Volume 11.8 fL (7.0-11.0); Mono # (Auto) 0.7 th/mm3 (0.0-0.9); Neut % (Auto) 88.5 % (16.0-70.0); Platelet Count 150 th/mm3 (150-450); Red Blood Count 4.36 mil/mm3 (4.00-5.30); Red Cell Distribution Width 13.7 % (11.6-17.2); White Blood Count 12.5 th/mm3 (4.0-11.0)
[2018-08-12 10:12] LABS: INR 1.1 Ratio; Prothrombin Time 11.6 sec (9.8-11.6)
--- NOTE | 2018-08-12 10:20 | XR ---
EXAM DATE: 08/12/2018 12:00 AM EDT AGE/SEX: 88 years / Female INDICATIONS: Right hip pain, possible fall. CLINICAL DATA: This is the patient's sequela encounter. Patient reports that signs and symptoms have been present for 1 day and indicates a pain score of 8/10. MEDICAL/SURGICAL HISTORY: Hypertension. None. COMPARISON: [facility], XR HIP W/ AP PELVIS, BILATERAL, 07/25/2018. . FINDINGS: Bony structures are intact and in normal alignment. Joints are intact without dislocation or signifi cant arthropathy. Minimal degenerative changes present. Osseous density is normal. Soft tissues are unremarkable. No radiopaque foreign bodies seen. CONCLUSION: Negative trauma study. Minimal degenerative change. Electronically signed by: Sal Cho MD 08/12/2018 10:19 AM EDT
[2018-08-12 10:27] LABS: Calcium 9.3 mg/dL (8.5-10.1); Carbon Dioxide 22.6 meq/L (21.0-32.0); Potassium 4.1 meq/L (3.5-5.1)
[2018-08-12 10:31] LABS: Troponin I 0.09 ng/mL (0.02-0.05)
[2018-08-12] MEDS: Pantoprazole Inj 40 MG Vial IV.PUSH SCH ×2 (11:50→22:30)
--- NOTE | 2018-08-12 14:37 | XR ---
EXAM DATE: 08/12/2018 12:00 AM EDT AGE/SEX: 88 years / Female INDICATIONS: Post right side thoracentesis CLINICAL DATA: This is the patient's initial encounter. Patient reports that signs and symptoms have been present for 1 day and indicates a pain score of 0/10. MEDICAL/SURGICAL HISTORY: Hypertension. dementia, GERD Cholecystectomy. Hysterectomy. COMPARISON: [facility] – [place], CHEST 2V PA&LAT, 08/11/2018. . FINDINGS: A single AP erect portable view of the chest was obtained. This demonstrates no pneumothorax. There i s mild blunting of the costophrenic angles. The heart size remains enlarged. Perihilar and bibasilar airspace opacities remain without significant change. The bony thorax is intact. CONCLUSION: 1. No pneumothorax. 2. Perihilar and bibasilar airspace opacities remain. 3. Mild blunting the costophrenic angles most consistent with small effusions. Electronically signed by: Sal Cho MD 08/12/2018 2:36 PM EDT
[2018-08-12 15:01] LABS: Total Protein,Pleural Fluid 1.9 gm/dL
--- NOTE | 2018-08-12 15:06 | ECG ---
Date Performed: 08/11/2018 Time Performed: 14:41:44 PTAGE: 88 years EKG: SINUS BRADYCARDIA WITH FIRST DEGREE AV BLOCK NONSPECIFIC T-WAVE ABNORMALITY ABNORMAL ECG PREVIOUS TRACING : 03/24/2013 06.17 Since the previous tracing, no significant change noted DOCTOR: Italo Dunn Interpretating Date/Time 08/12/2018 15:04:45
--- NOTE | 2018-08-12 15:33 | US ---
EXAM DATE: 08/12/2018 12:00 AM EDT AGE/SEX: 88 years / Female INDICATIONS: Right pleural effusion. CLINICAL DATA: This is the patient's initial encounter. Patient reports that signs and symptoms have been present for 2 days and indicates a pain score of 2/10. MEDICAL/SURGICAL HISTORY: Gastroesophageal reflux disease. Hypercholesterolemia. Hypertension . Dementia. Diaphragmatic hernia. Hysterectomy. COMPARISON: No prior exams available for comparison. FLUID: Total volume of 320 cc of clear, yellow fluid was removed. Fluid was sent to lab for ordered studies. . . TECHNIQUE: Ultrasound guidance for thoracentesis. Thoracentesis. The risks, benefits, and alternatives to ultrasound guided thoracentesis were explained to the patien t in lay simple terms, including the risk of bleeding and infection. Written and verbal informed con sent was obtained. Appropriate area for right thoracentesis was marked under ultrasound guidance with the patient in the upright position. Overlying skin was prepped and draped in the usual sterile fashion and with local anesthetic, a dermatotomy was made with an 11 blade scalpel. A 6 Chinese thoracentesis catheter was placed in the pleural space and fluid was removed. Catheter was then removed and a sterile dressing applied. There were no immediate complications. The patient tolerated the procedure well and the lef t the ultrasound suite in stable condition. Chest radiograph is to be obtained. FINDINGS: Adequate fluid for thoracentesis. CONCLUSION: 1. Uncomplicated thoracentesis Electronically signed by: Artemio Almanzar MD 08/12/2018 3:32 PM EDT
[2018-08-12 15:35] LABS: Lymphocytes,Pleural Fluid 71 %; Mesothelial,Pleural Fluid 8 %; Neutrophils,Pleural Fluid 6 %
[2018-08-12 15:40] LABS: RBC,Pleural Fluid 28 /mm3 (0-0)
--- NOTE | 2018-08-12 16:12 | ECHRPT ---
Indication: Heart failure, unspecified CONCLUSIONS Wall thickness is normal. Normal left ventricular size and systolic function. The left atrial size is mildly dilated. Mild mitral valve regurgitation. Mild mitral annular calcification. Mild aortic valve regurgitation. There is estimated severe pulmonary hypertension present ( > 70 mmHg). There is severe tricuspid regurgitation. The estimated pulmonary arterial pressure is 88.5 mmHg. There is no pericardial effusion. A moderate left sided pleural effusion is noted. BP: / HR: Rhythm: Sinus MEASUREMENTS (Male / Female) Normal Values Technical Quality:Good 2D ECHO LV Diastolic Diameter PLAX 4.5 cm 4.2 - 5.9 / 3.9 - 5.3 cm LV Systolic Diameter PLAX 3.2 cm IVS Diastolic Thickness 0.9 cm 0.6 - 1.0 / 0.6 - 0.9 cm LVPW Diastolic Thickness 0.9 cm 0.6 - 1.0 / 0.6 - 0.9 cm LV Relative Wall Thickness 0.4 LVOT Diameter 1.9 cm M-MODE Aortic Root Diameter MM 3.1 cm LA Systolic Diameter MM 4.5 cm LA Ao Ratio MM 1.5 AV Cusp Separation MM 2.3 cm DOPPLER AV Peak Velocity 189.0 cm/s AV Peak Gradient 14.3 mmHg AI Peak Velocity 391.0 cm/s AI Peak Gradient 61.2 mmHg AI Pressure Half Time 715.0 ms LVOT Peak Velocity 157.0 cm/s LVOT Peak Gradient 9.9 mmHg AV Area Cont Eq pk 2.4 cm MR Peak Velocity 423.0 cm/s MR Peak Gradient 71.6 mmHg LV E' Lateral Velocity 10.9 cm/s TR Peak Velocity 443.0 cm/s TR Peak Gradient 78.5 mmHg Right Atrial Pressure 10.0 mmHg Pulmonary Artery Systolic Pressu 88.5 mmHg Right Ventricular Systolic Press 88.5 mmHg FINDINGS LEFT VENTRICLE The left ventricular systolic function is normal with an estimated ejection fraction in the range of 60-65%. Wall thickness is normal. Normal left ventricular size. RIGHT VENTRICLE Normal right ventricular size and systolic function. LEFT ATRIUM The left atrial size is mildly dilated. RIGHT ATRIUM The right atrial size is normal. ATRIAL SEPTUM Normal atrial septal thickness without atrial level shunting by limited color doppler interrogation. AORTA The aortic root and proximal ascending aorta are normal in size on limited imaging. MITRAL VALVE Mild mitral valve regurgitation. Mild mitral annular calcification. AORTIC VALVE Mild aortic valve regurgitation. TRICUSPID VALVE There is estimated severe pulmonary hypertension present ( > 70 mmHg). There is severe tricuspid regurgitation. The estimated pulmonary arterial pressure is 88.5 mmHg. PULMONARY VALVE No pulmonary valve regurgitation or stenosis. VESSELS The inferior vena cava is normal in size. PERICARDIUM There is no pericardial effusion. A moderate left sided pleural effusion is noted. Tyler Acevedo MD (Electronically Signed) Final Date:12 August 2018 16:10
--- NOTE | 2018-08-12 17:33 | P.CONCA ---
History of Present Illness Service: Cardiology Consult date: 08/12/18 Reason for Consult: Congestive heart failure Primary Care Provider: Rodolfo Be MD Family Provider: Rodolfo Be MD Chief Complaint: Shortness of breath History of Present Illness: This is a 88-year-old pleasant female who unfortunately is a poor historian. Most of the information is taken from the son who is at the bedside as well as her medical records. The son states that the patient was complaining of epigastric pain as well as shortness of breath off and on for about 4 days. She had recently gone to her primary care doctor for complaints of abdominal pain and back pain. Was started on some pain medication. Call primary care physician who advised her to come to the ER for evaluation. While in the ER it was noted that she had congestive heart failure bilateral pleural effusions. Her BNP was elevated at 615. Troponin was mildly elevated at 0.06. She was started on IV Lasix and is currently able to lie flat in bed with no respiratory distress. She does have some mild pedal edema. Son states that she has not complained of any chest pain ,dizziness, syncope, fatigue, or palpitations. However as stated above she is a poor historian, with a history of dementia. Review of Systems unobtainable due to mental condition PMFSH - History History Provided By: Patient, Family Member - Medical History Medical History: Medical History (Last Reviewed 08/19/18 @ 08:12 by [facility] [employer]) Dementia Diaphragmatic hernia without obstruction or gangrene GERD with esophagitis High cholesterol Hypertension - Surgical History Surgical History: Surgical History (Last Reviewed 08/19/18 @ 08:12 by [facility]) H/O: hysterectomy - Family History Family History: Family History (Last Reviewed 08/11/18 @ 23:42 by RADHA Lozano) Other Family history normal - Tobacco History Second Hand Smoke Exposure: No Tobacco Use In Past 30 Days: No Smoking Status: Former smoker Tobacco Type: Cigarettes - Alcohol History How Often Do You Have a Drink Containing Alcohol: Monthly or less - Substance Use History Substance History: No History of Abuse - Travel History Recent Travel in the [facility] Within the Last 8 Weeks: No Recent Travel Out of the Country Within the Last 8 Weeks: No - Immunization History Tetanus Immunization: Unsure Medications and Allergies Allergies Allergy/AdvReac Type Severity Reaction Status Date / Time No Known Allergies Allergy Uncoded 05/14/17 17:16 Home Medications Medication Instructions Recorded Confirmed Type aspirin [Aspirin Low Dose] 81 mg PO DAILY 08/11/18 08/11/18 History losartan 50 mg PO DAILY 08/11/18 08/11/18 History memantine [Namenda] 10 mg PO BID 08/11/18 08/11/18 History simvastatin 10 mg PO QPM 08/11/18 08/11/18 History Active Medications: Active Medications Hydrocodone Bitart/Acetaminophen ([place] 5/325) 1 tab PO Q6H PRN PRN Reason: pain 4-10 Last Admin: 08/12/18 12:31 Dose: 1 tab Albuterol (Albuterol Neb (Prn)) 1.25 mg NEB Q4HR NEB PRN PRN Reason: sob Aspirin (Ecotrin) 81 mg PO DAILY [facility] Last Admin: 08/12/18 09:32 Dose: 81 mg Enalaprilat (Vasotec Inj) 1.25 mg IV.PUSH Q8H PRN PRN Reason: SBP > 180 or DBP >100 Last Admin: 08/12/18 09:32 Dose: 1.25 mg Furosemide (Lasix Inj) 40 mg IV.PUSH DAILY [facility] Last Admin: 08/12/18 09:24 Dose: 40 mg Heparin Sodium (Porcine) (Heparin Inj) 5,000 units SQ Q12H [facility] Last Admin: 08/12/18 09:33 Dose: Not Given Losartan Potassium (Cozaar) 50 mg PO HS [facility] Last Admin: 08/11/18 20:56 Dose: 50 mg Memantine (Namenda) 10 mg PO BID [facility] Last Admin: 08/12/18 09:32 Dose: 10 mg Ondansetron HCl (Zofran Inj) 4 mg IV.PUSH Q6H PRN PRN Reason: NAUSEA OR VOMITING Pantoprazole Sodium (Protonix Inj) 40 mg IV.PUSH Q12H [facility] Last Admin: 08/12/18 11:50 Dose: 40 mg Sodium Chloride (Ns Flush) 2 ml IV.FLUSH BID [facility] Last Admin: 08/12/18 09:33 Dose: 2 ml Sodium Chloride (Ns Flush) 2 ml IV.FLUSH PRN PRN PRN Reason: FLUSH AFTER USING IV ACCESS Exam Vital signs: Vital Signs 08/11/18 17:36 08/11/18 19:20 08/11/18 22:04 Temperature 97.7 F Pulse Rate 45 L 46 L 49 L Respiratory Rate 16 18 16 Blood Pressure 176/70 H 172/71 H 118/76 Pulse Oximetry 97 96 96 08/11/18 22:46 08/12/18 02:00 08/12/18 03:26 Temperature Pulse Rate 49 L 47 L Respiratory Rate 16 26 H Blood Pressure 160/70 H 197/84 H Pulse Oximetry 97 95 96 08/12/18 03:40 08/12/18 04:48 08/12/18 04:53 Temperature Pulse Rate 57 L 57 L Respiratory Rate 23 28 H Blood Pressure 136/61 Pulse Oximetry 96 94 L 08/12/18 05:54 08/12/18 06:38 08/12/18 08:31 Temperature Pulse Rate 57 L 46 L 46 L Respiratory Rate 28 H 20 Blood Pressure 136/61 205/86 H Pulse Oximetry 94 L 93 L 08/12/18 12:37 08/12/18 12:41 08/12/18 13:05 Temperature 97.4 F L 97.8 F Pulse Rate 46 L 46 L Respiratory Rate 20 22 Blood Pressure 208/83 H 110/85 Pulse Oximetry 92 L 95 08/12/18 13:47 08/12/18 14:24 08/12/18 15:13 Temperature 98.6 F 98.0 F Pulse Rate 45 L 49 L Respiratory Rate 20 20 Blood Pressure 146/62 H 179/70 H Pulse Oximetry 92 L 99 95 Intake & Output 08/11/18 08/12/18 08/12/18 18:59 06:59 18:59 Intake Total 340 / 340 Output Total 275 / 275 Balance 340 / 340 -275 / -275 Weight 54.431 kg Intake: Oral 340 / 340 Output: Urine 275 / 275 Other: Date of Last Bowel Movement 08/11/18 - Constitutional mild distress - Routine HEENT Exam Head: Present: normocephalic, atraumatic ENT: Present: mucous membranes moist - Routine Neck Exam Present: supple. Absent: JVD, carotid bruit - Routine Respiratory Exam Present: crackles Comments: Noted bilaterally to bases - Routine Cardiovascular Exam Present: S1, S2, gallop, bradycardia. Absent: JVD Comments: s4 is able to lie flat without any increased respiratory distress - Routine Extremities Exam Present: edema Comments: 1+ pedal edema - Routine Skin Exam Present: dry, warm Comments: Dressing in place to right mid back - Routine Neurological Exam Present: altered mental status Some confusion noted Results 08/17/18 05:32 08/20/18 07:01 Cardiac Enzymes 08/11/18 08/11/18 08/11/18 Range/Units 14:50 14:50 21:02 AST 55 H (15-37) U/L Troponin I 0.06 H 0.05 (0.02-0.05) ng/mL B-Natriuretic Peptide 615 H (0-100) pg/mL 08/12/18 Range/Units 09:38 AST (15-37) U/L Troponin I 0.09 H (0.02-0.05) ng/mL B-Natriuretic Peptide (0-100) pg/mL Coagulation 08/11/18 08/12/18 Range/Units 14:50 09:38 PT 11.6 (9.8-11.6) sec B-Natriuretic Peptide 615 H (0-100) pg/mL CBC 08/11/18 08/12/18 Range/Units 14:50 09:38 WBC 9.0 12.5 H (4.0-11.0) th/mm3 RBC 4.13 4.36 (4.00-5.30) mil/mm3 Hgb 12.6 13.0 (11.6-15.3) gm/dL Hct 38.1 40.1 (35.0-46.0) % Plt Count 174 150 (150-450) th/mm3 Neut # (Auto) 7.4 11.0 H (1.8-7.7) th/mm3 Lymph # (Auto) 0.9 L 0.6 L (1.0-4.8) th/mm3 [place] # (Auto) 0.6 0.7 (0.0-0.9) th/mm3 Eos # (Auto) 0.0 0.0 (0.0-0.4) th/mm3 Baso # (Auto) 0.0 0.0 (0.0-0.2) th/mm3 Comprehensive Metabolic Panel 08/11/18 08/12/18 Range/Units 14:50 09:38 Sodium 143 141 (136-145) meq/L Potassium 4.4 4.1 (3.5-5.1) meq/L Chloride 110 H 108 H (98-107) meq/L Carbon Dioxide 23.5 22.6 (21.0-32.0) meq/L BUN 24 H 21 H (7-18) mg/dL Creatinine 1.11 H 0.87 (0.50-1.00) mg/dL Calcium 9.0 9.3 (8.5-10.1) mg/dL AST 55 H (15-37) U/L ALT 128 H (10-53) U/L Alkaline Phosphatase 206 H (45-117) U/L Total Protein 7.0 (6.4-8.2) g/dL Albumin 3.3 L (3.4-5.0) g/dL Intake and Output 08/12/18 08/12/18 08/12/18 06:59 14:59 22:59 Output Total 275 / 275 Balance -275 / -275 Output: Urine 275 / 275 Other: Date of Last Bowel Movement 08/11/18 - Imaging and Cardiology Imaging: Impressions Chest X-Ray 08/11/18 14:23 CONCLUSION: 1. Small bilateral pleural effusions and bibasilar densities likely atelectasis. 2. Cardiomegaly with some minimal interstitial edema. Abdomen/Pelvis CT 08/11/18 17:20 CONCLUSION: 1. Bilateral inguinal hernias with multiple loops of small bowel in the right lateral hernia. No dilated loops of small or large bowel. 2. 12 mm densely enhancing lesion in the posterior segment of the right lobe of the liver. Both malignant and benign causes can create this appearance and recommend complete workup on a nonemergent basis. 3. Moderate-sized bilateral pleural effusions and patchy bilateral lower lobe. Chest X-Ray 08/12/18 00:00 CONCLUSION: 1. No pneumothorax. 2. Perihilar and bibasilar airspace opacities remain. 3. Mild blunting the costophrenic angles most consistent with small effusions. Hip X-Ray 08/12/18 00:00 CONCLUSION: Negative trauma study. Minimal degenerative change. Liver Ultrasound 08/12/18 00:00 CONCLUSION: 1. Status post cholecystectomy with prominent common bile duct which may reflect reservoir effect. 2. Small enhancing mass in the posterior right lobe of the liver noted on CT exam is not demonstrated on ultrasound exam. Again, recommend further evaluation on an outpatient nonemergent basis. 3. Small bilateral effusions. Thoracentesis Ultrasound 08/12/18 00:00 CONCLUSION: 1. Uncomplicated thoracentesis Stress echo: pending EKG results: image reviewed - EKG Interpretation EKG shows: bradycardia Assessment and Plan - Plan 1. Acute most likely diastolic heart failure- Further recommendations will be given after Dr. Winkler sees the patient. Discussed with the son at bedside echocardiogram is pending. She has been given IV Lasix and a right thoracentesis and appears comfortable at current, On O2. At 2 L nasal cannula 2. complete heart block D/C Namenda.. monitor on tele. correct lytes.check TSH/FREE T4 Discussed Condition With: Son and family friend at bedside, as well as nursing staff.
[2018-08-13 08:11] LABS: Calcium 8.5 mg/dL (8.5-10.1); Carbon Dioxide 24.9 meq/L (21.0-32.0); Magnesium 2.3 mg/dL (1.5-2.5); Phosphorus 2.9 mg/dL (2.5-4.9); Potassium 4.1 meq/L (3.5-5.1)
[2018-08-13 08:44] LABS: Free T4 (Free Thyroxine) 1.59 ng/dL (0.76-1.46); Thyroid Stimulating Hormone 1.66 uIU/mL (0.358-3.740)
--- NOTE | 2018-08-13 08:59 | ECG ---
Date Performed: 08/13/2018 Time Performed: 07:11:19 PTAGE: 88 years EKG: UNCERTAIN REGULAR RHYTHM MARKED LEFT AXIS DEVIATION LEFT BUNDLE BRANCH BLOCK ABNORMAL ECG PREVIOUS TRACING : 08/11/2018 14.41 DOCTOR: Kevin Laguerre Interpretating Date/Time 08/13/2018 08:58:24
[2018-08-13] MEDS: Heparin - SQ 10,000 UNITS/ML Vial SQ SCH ×2 (11:12→22:22)
[2018-08-13] MEDS: Sodium Chloride 0.9% 2 ML Flush BID IV.FLUSH SCH ×2 (11:13→22:23)
[2018-08-13] MEDS: Pantoprazole Inj 40 MG Vial IV.PUSH SCH ×2 (11:13→22:23)
--- NOTE | 2018-08-13 11:34 | XR ---
EXAM DATE: 08/13/2018 12:00 AM EDT AGE/SEX: 88 years / Female INDICATIONS: Status Post Left Thoracentesis. No chest complaints. CLINICAL DATA: This is the patient's subsequent encounter. Patient reports that signs and symptoms h ave been present for 3 days and indicates a pain score of 0/10. MEDICAL/SURGICAL HISTORY: . Back pain. Gastroesophageal reflux disease. Hypertension. Hernia. Hysterectomy. [place] [facility] [place]. . FINDINGS: A single frontal expiratory view of the chest was performed. . Bilateral patchy densities. Cardiomeg lynn No evidence of pneumothorax. Mediastinal structures are in the midline. CONCLUSION: 1. Cardiomegaly with bibasilar patchy densities. 2. No definite pneumothorax. There is an apparent skinfold on the left. Electronically signed by: Hudson Gonzales MD 08/13/2018 11:33 AM EDT
--- NOTE | 2018-08-13 11:35 | US ---
EXAM DATE: 08/13/2018 12:00 AM EDT AGE/SEX: 88 years / Female INDICATIONS: Left pleural effusion. CLINICAL DATA: This is the patient's initial encounter. Patient reports that signs and symptoms have been present for 3 days and indicates a pain score of 6/10. MEDICAL/SURGICAL HISTORY: Gastroesophageal reflux disease. Hypercholesterolemia. Hypertension . Dementia. Diaphragmatic hernia. Hysterectomy. COMPARISON: [facility] – [place] GUIDED THORACENTESIS RIGHT, 07/03/2007. . FLUID: Total volume of 400 cc of clear, yellow fluid was removed. Fluid was discarded. Thoracentesis was therapeutic only. . . TECHNIQUE: Ultrasound guidance for thoracentesis. Thoracentesis. The risks, benefits, and alternatives to ultrasound guided thoracentesis were explained to the patien t in lay simple terms, including the risk of bleeding and infection. Written and verbal informed con sent was obtained. Appropriate area for left thoracentesis was marked under ultrasound guidance with the patient in the upright position. Overlying skin was prepped and draped in the usual sterile fashion and with local anesthetic, a dermatotomy was made with an 11 blade scalpel. A 6 Welsh thoracentesis catheter was p laced in the pleural space and fluid was removed. Catheter was then removed and a sterile dressing a pplied. There were no immediate complications. The patient tolerated the procedure well and the left the ultrasound suite in stable condition. Chest radiograph is to be obtained. FINDINGS: Adequate fluid for thoracentesis. CONCLUSION: 1. Uncomplicated thoracentesis. Electronically signed by: Artemio Almanzar MD 08/13/2018 11:34 AM EDT
--- NOTE | 2018-08-13 14:26 | P.PNIM ---
Subjective Interval history: Says he is feeling right. Denies any chest pain. Reports shortness of breath is slightly improved after thoracentesis. Physical Exam Vital signs: Vital Signs 08/12/18 14:24 08/12/18 15:13 08/12/18 17:23 Temperature 98.6 F 98.0 F 97.4 F L Pulse Rate 45 L 49 L 42 L Respiratory Rate 20 20 16 Blood Pressure 146/62 H 179/70 H 167/70 H Pulse Oximetry 99 95 93 L 08/12/18 20:00 08/13/18 00:00 08/13/18 01:48 Temperature 97.4 F L 98 F 98.2 F Pulse Rate 47 L 44 L 42 L Respiratory Rate 18 18 Blood Pressure 140/72 171/71 H 137/62 Pulse Oximetry 91 L 93 L 95 08/13/18 06:00 08/13/18 08:00 08/13/18 12:00 Temperature 97.4 F L 97.7 F 98 F Pulse Rate 42 L 95 H 42 L Respiratory Rate 18 16 16 Blood Pressure 154/70 H 188/77 H 189/77 H Pulse Oximetry 91 L 94 L 93 L Intake & Output 08/12/18 08/13/18 08/13/18 18:59 06:59 18:59 Intake Total 0 / 0 Output Total 275 / 275 300 / 300 Balance -275 / -275 -300 / -300 Weight 56.8 kg Intake: Oral 0 / 0 Output: Urine 275 / 275 300 / 300 Other: # Voids 1 Date of Last Bowel Movement 08/11/18 # Bowel Movements 0 Narrative: GENERAL: Patient lying in bed. Appears comfortable. SKIN: Warm and dry. HEAD: Normocephalic. EYES: No scleral icterus. No injection or drainage. NECK: Supple, trachea midline. No JVD. CARDIOVASCULAR: Regular rate and rhythm without murmurs, gallops, or rubs. RESPIRATORY: Breath sounds equal bilaterally. No accessory muscle use. GASTROINTESTINAL: Abdomen soft, non-tender, nondistended. MUSCULOSKELETAL: No cyanosis, or edema. BACK: Nontender without obvious deformity. No CVA tenderness. Results - Labs CBC & Chem 7: 08/12/18 09:38 08/13/18 06:21 Laboratory Results - last 24 hr 08/12/18 08/12/18 08/13/18 14:00 14:00 06:21 Sodium 144 Potassium 4.1 Chloride 108 H Carbon Dioxide 24.9 Anion Gap 11 BUN 26 H Creatinine 1.11 H Estimated GFR 46 L Random Glucose 145 H Calcium 8.5 D Phosphorus 2.9 Magnesium 2.3 TSH 1.660 Free T4 1.59 H Pleural RBC 28 H Pleural Nuc Cells 18 H Pleural Neutrophils 6 Pleural Lymphocytes 71 Pleural Histocytes 15 Pleural Mesothelial 8 Pleural Total Protein 1.9 Pleural LDH 90 Pleural Glucose 152 Microbiology 08/12/18 14:00 Fluid - Pleural fluid Gram Stain - Final 08/12/18 14:00 Fluid - Pleural fluid Body Fluid Culture - Preliminary No growth in 24 hours - Imaging Impressions Chest X-Ray 08/12/18 00:00 CONCLUSION: 1. No pneumothorax. 2. Perihilar and bibasilar airspace opacities remain. 3. Mild blunting the costophrenic angles most consistent with small effusions. Thoracentesis Ultrasound 08/12/18 00:00 CONCLUSION: 1. Uncomplicated thoracentesis Chest X-Ray 08/13/18 00:00 CONCLUSION: 1. Cardiomegaly with bibasilar patchy densities. 2. No definite pneumothorax. There is an apparent skinfold on the left. Thoracentesis Ultrasound 08/13/18 00:00 CONCLUSION: 1. Uncomplicated thoracentesis. Assessment and Plan - Plan ///New onset CHF, BNP [address] reviewed and shows Moderate-sized bilateral pleural effusions and patchy bilateral lower lobe. -patient is currently on five liters of oxygen via N/C -will consult IR for thoracentesis and follow the fluid studies -will check ABG -will start on Lasix -Consult to cardiology -2d echo ordered = Marketed elevation of pulmonary pressures on echocardiogram. With bradycardia , however significant hypertensive episode with systolics in the 180s. Will add hydralazine for blood pressure control. Cardiology following. Appreciate assistance. //Elevated troponin, troponin .06 -Serial troponin and ekg //Bradycardia EKG shows bradycardia with first degree block -Monitor telemetry -Await cardiology evaluation -Cardiology following. Family would like to do pacemaker if offered. //Transaminitis- due to CHF? Abdominal CT reviewed and shows Bilateral inguinal hernias with multiple loops of small bowel in the right lateral hernia. No dilated loops of small or large bowel, and a 12 mm densely enhancing lesion in the posterior segment of the right lobe of the liver. -Trend LFTs --Avoid hepatotoxins -Protonix IV BID -Consult GI if LFT's trending up. //reported right hip pain after a questionable fall - check XR right hip -negative Hypertension, currently elevated -Resumed home losartan -Avoid beta blockers = 08/13. Blood pressure is elevated in the 180s. Start on hydralazine scheduled. Likely bradycardia is reactive secondary to hypertension. Dementia - resume home meds fall; consult PT. DVT prophylaxis: Heparin sq Discharge Planning: Expect to SNF pending improvement and pending cardiology clearance
[2018-08-13] MEDS: hydrALAZINE 50 MG Tablet PO SCH ×2 (15:37→17:59)
[2018-08-14 08:53] LABS: Baso % (Auto) 0.4 % (0.0-2.0); Eos # (Auto) 0.1 th/mm3 (0.0-0.4); Eos % (Auto) 1.1 % (0.0-4.0); Hematocrit 36.9 % (35.0-46.0); Hemoglobin 12.3 gm/dL (11.6-15.3); Lymph # (Auto) 0.8 th/mm3 (1.0-4.8); Lymph % (Auto) 7.7 % (9.0-44.0); Mean Corpuscular HGB Conc 33.3 % (32.0-36.0); Mean Corpuscular Hemoglobin 30.5 pg (27.0-34.0); Mean Corpuscular Volume 91.7 fL (80.0-100.0); Mean Platelet Volume 12.3 fL (7.0-11.0); Mono # (Auto) 0.9 th/mm3 (0.0-0.9); Mono % (Auto) 8.9 % (0.0-8.0); Neut # (Auto) 8.5 th/mm3 (1.8-7.7); Neut % (Auto) 81.9 % (16.0-70.0); Platelet Count 124 th/mm3 (150-450); Red Blood Count 4.02 mil/mm3 (4.00-5.30); White Blood Count 10.3 th/mm3 (4.0-11.0)
[2018-08-14 09:13] LABS: Calcium 8.7 mg/dL (8.5-10.1); Carbon Dioxide 23.5 meq/L (21.0-32.0)
[2018-08-14] MEDS: Heparin - SQ 10,000 UNITS/ML Vial SQ SCH ×2 (09:39→20:52)
[2018-08-14] MEDS: Sodium Chloride 0.9% 2 ML Flush BID IV.FLUSH SCH ×2 (09:40→20:52)
[2018-08-14 10:28] LABS: Lymphocytes 8 % (9-44); Monocytes 6 % (0-8)
--- NOTE | 2018-08-14 11:01 | P.PNCA ---
Subjective Interval history: c/o back pain, but denies chest pain or shortness of breath (note patient has dementia) Medications and Allergies Allergies Allergy/AdvReac Type Severity Reaction Status Date / Time No Known Allergies Allergy Uncoded 05/14/17 17:16 Home Medications Medication Instructions Recorded Confirmed Type aspirin [Aspirin Low Dose] 81 mg PO DAILY 08/11/18 08/11/18 History losartan 50 mg PO DAILY 08/11/18 08/11/18 History memantine [Namenda] 10 mg PO BID 08/11/18 08/11/18 History simvastatin 10 mg PO QPM 08/11/18 08/11/18 History Active Medications: Active Medications Hydrocodone Bitart/Acetaminophen ([place] 5/325) 1 tab PO Q6H PRN PRN Reason: pain 4-10 Last Admin: 08/13/18 17:57 Dose: 1 tab Albuterol (Albuterol Neb (Prn)) 1.25 mg NEB Q4HR NEB PRN PRN Reason: sob Aspirin (Ecotrin) 81 mg PO DAILY [facility] Last Admin: 08/14/18 09:40 Dose: 81 mg Enalaprilat (Vasotec Inj) 1.25 mg IV.PUSH Q8H PRN PRN Reason: SBP > 180 or DBP >100 Last Admin: 08/12/18 09:32 Dose: 1.25 mg Furosemide (Lasix Inj) 40 mg IV.PUSH DAILY [facility] Last Admin: 08/14/18 09:39 Dose: 40 mg Heparin Sodium (Porcine) (Heparin Inj) 5,000 units SQ Q12H [facility] Last Admin: 08/14/18 09:39 Dose: 5,000 units Hydralazine HCl (Apresoline) 100 mg PO TID [facility] Last Admin: 08/14/18 09:40 Dose: 100 mg Losartan Potassium (Cozaar) 50 mg PO HS [facility] Last Admin: 08/13/18 22:35 Dose: 50 mg Ondansetron HCl (Zofran Inj) 4 mg IV.PUSH Q6H PRN PRN Reason: NAUSEA OR VOMITING Pantoprazole Sodium (Protonix Inj) 40 mg IV.PUSH Q12H [facility] Last Admin: 08/13/18 22:23 Dose: 40 mg Sodium Chloride (Ns Flush) 2 ml IV.FLUSH BID [facility] Last Admin: 08/14/18 09:40 Dose: 2 ml Sodium Chloride (Ns Flush) 2 ml IV.FLUSH PRN PRN PRN Reason: FLUSH AFTER USING IV ACCESS Tramadol HCl (Ultram) 50 mg PO Q8H PRN PRN Reason: PAIN SCALE 1 TO 10 Last Admin: 08/14/18 05:58 Dose: 50 mg Physical Exam Vital signs: Vital Signs 08/13/18 12:00 08/13/18 14:41 08/13/18 16:00 Temperature 98 F 98 F Pulse Rate 42 L 41 L Respiratory Rate 16 16 Blood Pressure 189/77 H 198/84 H Pulse Oximetry 93 L 95 93 L 08/13/18 19:49 08/13/18 20:00 08/13/18 22:14 Temperature 97 F L Pulse Rate 43 L 37 L Respiratory Rate 16 Blood Pressure 155/70 H Pulse Oximetry 99 95 08/13/18 23:47 08/14/18 00:20 08/14/18 03:47 Temperature 98.5 F Pulse Rate 41 L 43 L 38 L Respiratory Rate 16 Blood Pressure 178/52 H Pulse Oximetry 95 08/14/18 04:00 08/14/18 08:31 08/14/18 09:00 Temperature 98.2 F 98.0 F Pulse Rate 40 L 38 L 37 L Respiratory Rate 16 20 Blood Pressure 148/80 H 169/73 H Pulse Oximetry 94 L Intake & Output 08/13/18 08/14/18 08/14/18 18:59 06:59 18:59 Intake Total 120 / 120 Output Total 400 / 400 Balance -280 / -280 Weight 57.2 kg Intake: Oral 120 / 120 Output: Urine 400 / 400 Other: # Bowel Movements 0 - Constitutional mild distress, obese, cooperative - Routine HEENT Exam Head: Present: normocephalic, atraumatic ENT: Present: mucous membranes dry - Routine Neck Exam Present: supple. Absent: JVD, carotid bruit - Routine Respiratory Exam Present: wheezes Comments: wheezes noted on expiration in upper lobes. Few crackles noted in bases. - Routine Cardiovascular Exam Present: S1, S2, bradycardia - Routine Abdominal Exam Present: soft - Routine Extremities Exam Present: pulses intact, normal capillary refill. Absent: cyanosis, edema - Routine Skin Exam Present: dry, warm - Additional findings Additional findings: She will answer questions, but answers are unreliable. Son at bedside. Results 08/17/18 05:32 08/20/18 07:01 CBC 08/14/18 Range/Units 07:44 WBC 10.3 (4.0-11.0) th/mm3 RBC 4.02 (4.00-5.30) mil/mm3 Hgb 12.3 (11.6-15.3) gm/dL Hct 36.9 (35.0-46.0) % Plt Count 124 L (150-450) th/mm3 Neut # (Auto) 8.5 H (1.8-7.7) th/mm3 Lymph # (Auto) 0.8 L (1.0-4.8) th/mm3 [place] # (Auto) 0.9 (0.0-0.9) th/mm3 Eos # (Auto) 0.1 (0.0-0.4) th/mm3 Baso # (Auto) 0.0 (0.0-0.2) th/mm3 Comprehensive Metabolic Panel 08/13/18 08/14/18 Range/Units 06:21 07:44 Sodium 144 140 (136-145) meq/L Potassium 4.1 4.0 (3.5-5.1) meq/L Chloride 108 H 106 (98-107) meq/L Carbon Dioxide 24.9 23.5 (21.0-32.0) meq/L BUN 26 H 27 H (7-18) mg/dL Creatinine 1.11 H 0.82 (0.50-1.00) mg/dL Calcium 8.5 D 8.7 (8.5-10.1) mg/dL Intake and Output 08/13/18 08/14/18 08/14/18 22:59 06:59 14:59 Intake Total 120 / 120 Output Total 400 / 400 Balance -280 / -280 Intake: Oral 120 / 120 Output: Urine 400 / 400 Other: # Bowel Movements 0 Weight 57.2 kg - Imaging and Cardiology Imaging: Impressions Chest X-Ray 08/12/18 00:00 CONCLUSION: 1. No pneumothorax. 2. Perihilar and bibasilar airspace opacities remain. 3. Mild blunting the costophrenic angles most consistent with small effusions. Thoracentesis Ultrasound 08/12/18 00:00 CONCLUSION: 1. Uncomplicated thoracentesis Chest X-Ray 08/13/18 00:00 CONCLUSION: 1. Cardiomegaly with bibasilar patchy densities. 2. No definite pneumothorax. There is an apparent skinfold on the left. Thoracentesis Ultrasound 08/13/18 00:00 CONCLUSION: 1. Uncomplicated thoracentesis. Echo: report reviewed EKG results: report reviewed - EKG Interpretation EKG shows: bradycardia Assessment and Plan - Plan 1. Acute diastolic heart failure-echo with LVEF 60-65%, Severe TR, Mild MR Mild AR , severe Pulmonary Hypertension continue cautious diueresing. F/U lytes and kidney fx. 2. CHB-normal TSH with mildly elevated T4. Namenda on hold.60-80 hrs 1/2 life 3. Hypertension- avoid AV Blocking agents. Discussed with son at bedside. Code Status: DNR Discussed Condition With: son who is at bedside
--- NOTE | 2018-08-14 12:36 | ECG ---
Date Performed: 08/14/2018 Time Performed: 08:42:37 PTAGE: 88 years EKG: Sinus rhythm WITH COMPLETE HEART BLOCK WITH VENTRICULAR ESCAPE LEFT AXIS DEVIATION LEFT BUNDLE BRANCH BLOCK ABNOR MAL ECG PREVIOUS TRACING : 08/13/2018 07.11 No significant change from previous tracing noted. DOCTOR: Woody Mcfarland Interpretating Date/Time 08/14/2018 12:35:27
[2018-08-14] MEDS: Pantoprazole Inj 40 MG Vial IV.PUSH SCH ×2 (12:53→23:40)
--- NOTE | 2018-08-14 15:18 | P.PN ---
Subjective Interval history: In bed she does not appear in acute distress. Denies any chest pain. Some pain at the thoracentesis site. Breathing better after the thoracentesis. No edema. No cough fever or chills. Physical Exam Vital signs: Vital Signs 08/13/18 16:00 08/13/18 19:49 08/13/18 20:00 Temperature 98 F 97 F L Pulse Rate 41 L 43 L 37 L Respiratory Rate 16 16 Blood Pressure 198/84 H 155/70 H Pulse Oximetry 93 L 99 08/13/18 22:14 08/13/18 23:47 08/14/18 00:20 Temperature 98.5 F Pulse Rate 41 L 43 L Respiratory Rate 16 Blood Pressure 178/52 H Pulse Oximetry 95 95 08/14/18 03:47 08/14/18 04:00 08/14/18 08:00 Temperature 98.2 F Pulse Rate 38 L 40 L Respiratory Rate 16 20 Blood Pressure 148/80 H Pulse Oximetry 94 L 08/14/18 08:31 08/14/18 09:00 08/14/18 11:01 Temperature 98.0 F Pulse Rate 38 L 37 L Respiratory Rate 20 Blood Pressure 169/73 H Pulse Oximetry 96 08/14/18 11:48 08/14/18 12:00 Temperature 98.0 F Pulse Rate 42 L 42 L Respiratory Rate Blood Pressure 118/56 L Pulse Oximetry 95 Intake & Output 08/13/18 08/14/18 08/14/18 18:59 06:59 18:59 Intake Total 120 / 120 Output Total 400 / 400 Balance -280 / -280 Weight 57.2 kg Intake: Oral 120 / 120 Output: Urine 400 / 400 Other: Date of Last Bowel Movement 08/11/18 # Bowel Movements 0 Narrative: GENERAL: Patient lying in bed. Appears comfortable. CARDIOVASCULAR: Regular rate and rhythm without murmurs, gallops, or rubs. RESPIRATORY: Breath sounds equal bilaterally. No accessory muscle use. GASTROINTESTINAL: Abdomen soft, non-tender, nondistended. MUSCULOSKELETAL: No cyanosis, or edema. BACK: Nontender without obvious deformity. No CVA tenderness. Results - Labs CBC & Chem 7: 08/14/18 07:44 08/14/18 07:44 Laboratory Results - last 24 hr 08/14/18 08/14/18 07:44 07:44 WBC 10.3 RBC 4.02 Hgb 12.3 Hct 36.9 MCV 91.7 MCH 30.5 MCHC 33.3 RDW 14.0 Plt Count 124 L MPV 12.3 H Prelim Diff (Auto) Slide review pending Neut % (Auto) 81.9 H Lymph % (Auto) 7.7 L [place] % (Auto) 8.9 H Eos % (Auto) 1.1 Baso % (Auto) 0.4 Neut # (Auto) 8.5 H Lymph # (Auto) 0.8 L [place] # (Auto) 0.9 Eos # (Auto) 0.1 Baso # (Auto) 0.0 WBC Differential Manual diff final Seg Neuts % (Manual) 79 H Band Neuts % (Manual) 6 Lymphocytes % (Manual) 8 L Monocytes % (Manual) 6 Basophils % (Manual) 1 Abs Neuts (Manual) 8.8 H Differential Comment . Platelet Estimate Low L Platelet Morphology Enlarged H Sodium 140 Potassium 4.0 Chloride 106 Carbon Dioxide 23.5 Anion Gap 11 BUN 27 H Creatinine 0.82 Estimated GFR 66 L Random Glucose 137 H Calcium 8.7 Microbiology 08/12/18 14:00 Fluid - Pleural fluid Gram Stain - Final 08/12/18 14:00 Fluid - Pleural fluid Body Fluid Culture - Preliminary No growth in 48 hours Assessment and Plan - Plan New onset CHF, BNP 615. Acute on chronic diastolic heart failure-echo with LVEF 60-65%, Severe TR, Mild MR Mild AR , severe Pulmonary Hypertension Acute on chronic respiratory failure requiring 5L O2 by NC Abdominal CT reviewed and shows Moderate-sized bilateral pleural effusions and patchy bilateral lower lobe. -patient is currently on 3-5 liters of oxygen via N/C IR consulted s/p thoracentesis and follow the fluid studies ABG reassuring -will start on Lasix -Consult to cardiology -2d echo ordered = Marketed elevation of pulmonary pressures on echocardiogram. With bradycardia , however significant hypertensive episode with systolics in the 180s. Will add hydralazine for blood pressure control. Cardiology following. Appreciate assistance. Elevated troponin, troponin .06 -Serial troponin and ekg Bradycardia EKG shows bradycardia with first degree block -Monitor telemetry -Await cardiology evaluation -Cardiology following. Family would like to do pacemaker if offered. Transaminitis- due to CHF? Abdominal CT reviewed and shows Bilateral inguinal hernias with multiple loops of small bowel in the right lateral hernia. No dilated loops of small or large bowel, and a 12 mm densely enhancing lesion in the posterior segment of the right lobe of the liver. -Trend LFTs --Avoid hepatotoxins -Protonix IV BID -Consult GI if LFT's trending up. Reported right hip pain after a questionable fall - check XR right hip -negative Hypertension, currently elevated -Resumed home losartan -Avoid beta blockers = 08/13. Blood pressure is elevated in the 180s. Start on hydralazine scheduled. Likely bradycardia is reactive secondary to hypertension. Dementia - resume home meds Fall consult PT. DVT prophylaxis: Heparin sq Discharge Planning: Likely DC to SNF, pending improvement and pending cardiology clearance
[2018-08-15 06:55] LABS: Baso % (Auto) 0.3 % (0.0-2.0); Eos # (Auto) 0.1 th/mm3 (0.0-0.4); Eos % (Auto) 0.7 % (0.0-4.0); Hematocrit 36.2 % (35.0-46.0); Hemoglobin 12.3 gm/dL (11.6-15.3); Lymph # (Auto) 0.9 th/mm3 (1.0-4.8); Lymph % (Auto) 10.3 % (9.0-44.0); Mean Corpuscular HGB Conc 33.9 % (32.0-36.0); Mean Corpuscular Hemoglobin 30.6 pg (27.0-34.0); Mean Corpuscular Volume 90.4 fL (80.0-100.0); Mean Platelet Volume 12.4 fL (7.0-11.0); Mono # (Auto) 1.1 th/mm3 (0.0-0.9); Mono % (Auto) 12.4 % (0.0-8.0); Neut # (Auto) 6.8 th/mm3 (1.8-7.7); Neut % (Auto) 76.3 % (16.0-70.0); Platelet Count 147 th/mm3 (150-450); Red Cell Distribution Width 14.3 % (11.6-17.2)
[2018-08-15 07:21] LABS: Alanine Aminotransferase 43 U/L (10-53); Albumin 2.7 g/dL (3.4-5.0); Anion Gap 14 meq/L (5-15); Aspartate Aminotransferase 15 U/L (15-37); Blood Urea Nitrogen 39 mg/dL (7-18); Calcium 8.5 mg/dL (8.5-10.1); Carbon Dioxide 23.6 meq/L (21.0-32.0); Chloride 105 meq/L (98-107); Glomerular Filtration Rate 25 mL/min (>89); Glucose,Random 125 mg/dL (74-106); Potassium 3.9 meq/L (3.5-5.1); Sodium 143 meq/L (136-145)
[2018-08-15 07:24] LABS: Alkaline Phosphatase 137 U/L (45-117); Total Protein 6.2 g/dL (6.4-8.2)
[2018-08-15 08:21] LABS: Platelet Estimate Normal (Normal)
[2018-08-15] MEDS: hydrALAZINE 50 MG Tablet PO SCH ×3 (08:49→17:34)
[2018-08-15] MEDS: Heparin - SQ 10,000 UNITS/ML Vial SQ SCH ×2 (08:50→21:49)
[2018-08-15] MEDS: Sodium Chloride 0.9% 2 ML Flush BID IV.FLUSH SCH ×2 (08:52→21:49)
[2018-08-15] MEDS: Pantoprazole Inj 40 MG Vial IV.PUSH SCH (10:23)
--- NOTE | 2018-08-15 11:39 | P.DS ---
Date of admission: 08/12/18 09:26 Primary care physician: Rodolfo Be MD Brief History from admission: 88 y/o female with a history of dementia, gerd, htn and hld was brought to the ER by her son for complaints of abdominal pain. During examination patient's son was not at the bedside and due to to the history of dementia patient is a poor historian. She does complain of epigastric pain, worse with a deep breath, no radiation or nausea or vomiting. She was able to eat dinner tonight with no complaints. She denies any chest pain, but states she feels sob when taking a deep breath. No fevers, chills, constipation, or dysuria noted. According to the ER report they stated the son states that the patient was seen by her regular provider last week for chronic back and right hip pain. The patient's son states that the patient was prescribed a pain medication. The patient's son states that the patient began to have upper abdominal pain last Saturday after she started the new pain medication. The patient's son stated that on Saturday he read about the side effects of the pain medication and decided to discontinue her pain medication. The patient's son states that he spoke on the phone with the patient's primary care doctor who suggested they go to the ER for further evaluation. DS: Medications - Discharge Medications Prescriptions: hydralazine 50 mg PO TID #90 tab tramadol 50 mg PO Q12HR PRN #4 tab PRN Reason: Pain DS: Summary - Time Spent with Patient Total time spent providing and/or coordinating discharge services: - Quality: VTE Deep Vein Thrombosis/Pulmonary Embolism Present on Admission: No Exam Vital signs: Vital Signs 08/14/18 11:48 08/14/18 12:00 08/14/18 16:00 Temperature 98.0 F 98.3 F Pulse Rate 42 L 42 L 41 L Respiratory Rate 20 Blood Pressure 118/56 L 130/58 L Pulse Oximetry 95 95 08/14/18 19:31 08/14/18 20:00 08/15/18 00:00 Temperature 98.2 F 97.9 F Pulse Rate 41 L 38 L Respiratory Rate 18 18 Blood Pressure 136/58 L 126/63 Pulse Oximetry 96 95 94 L 08/15/18 03:57 08/15/18 04:00 08/15/18 07:47 Temperature 97.7 F 97.2 F L Pulse Rate 38 L 36 L 38 L Respiratory Rate 16 22 Blood Pressure 139/66 155/65 H Pulse Oximetry 94 L 97 08/15/18 08:00 08/15/18 09:00 Temperature Pulse Rate 36 L Respiratory Rate 22 Blood Pressure Pulse Oximetry Intake & Output 08/14/18 08/15/18 08/15/18 18:59 06:59 18:59 Intake Total 60 / 60 Balance 60 / 60 Weight 57 kg Intake: Oral 60 / 60 Other: # Voids 1 1 Date of Last Bowel Movement 08/11/18 08/11/18 08/11/18 # Bowel Movements 0 Narrative: GENERAL: Patient lying in bed. Appears comfortable. CARDIOVASCULAR: Regular rate and rhythm without murmurs, gallops, or rubs. RESPIRATORY: Breath sounds equal bilaterally. No accessory muscle use. GASTROINTESTINAL: Abdomen soft, non-tender, nondistended. MUSCULOSKELETAL: No cyanosis, or edema. BACK: Nontender without obvious deformity. No CVA tenderness. Results Labs on day of discharge: Labs from last 24 hours 08/15/18 08/15/18 04:55 04:55 WBC 9.0 RBC 4.00 Hgb 12.3 Hct 36.2 MCV 90.4 MCH 30.6 MCHC 33.9 RDW 14.3 Plt Count 147 L MPV 12.4 H Prelim Diff (Auto) Slide review pending Neut % (Auto) 76.3 H Lymph % (Auto) 10.3 [place] % (Auto) 12.4 H Eos % (Auto) 0.7 Baso % (Auto) 0.3 Neut # (Auto) 6.8 Lymph # (Auto) 0.9 L [place] # (Auto) 1.1 H Eos # (Auto) 0.1 Baso # (Auto) 0.0 WBC Differential . Diff Scan Auto diff confirmed Differential Comment . Platelet Estimate Normal Platelet Morphology Enlarged H Sodium 143 Potassium 3.9 Chloride 105 Carbon Dioxide 23.6 Anion Gap 14 BUN 39 H Creatinine 1.91 H Estimated GFR 25 L Random Glucose 125 H Calcium 8.5 Total Bilirubin 0.8 AST 15 ALT 43 Alkaline Phosphatase 137 H Total Protein 6.2 L D Albumin 2.7 L - Impressions ITS Impressions Abdomen/Pelvis CT 08/11/18 17:20 CONCLUSION: 1. Bilateral inguinal hernias with multiple loops of small bowel in the right lateral hernia. No dilated loops of small or large bowel. 2. 12 mm densely enhancing lesion in the posterior segment of the right lobe of the liver. Both malignant and benign causes can create this appearance and recommend complete workup on a nonemergent basis. 3. Moderate-sized bilateral pleural effusions and patchy bilateral lower lobe. Hip X-Ray 08/12/18 00:00 CONCLUSION: Negative trauma study. Minimal degenerative change. Liver Ultrasound 08/12/18 00:00 CONCLUSION: 1. Status post cholecystectomy with prominent common bile duct which may reflect reservoir effect. 2. Small enhancing mass in the posterior right lobe of the liver noted on CT exam is not demonstrated on ultrasound exam. Again, recommend further evaluation on an outpatient nonemergent basis. 3. Small bilateral effusions. Chest X-Ray 08/13/18 00:00 CONCLUSION: 1. Cardiomegaly with bibasilar patchy densities. 2. No definite pneumothorax. There is an apparent skinfold on the left. Thoracentesis Ultrasound 08/13/18 00:00 CONCLUSION: 1. Uncomplicated thoracentesis. Discharge Plan - Discharge Disposition Patient Disposition: 03 Discharge to SNF - Discharge Condition Condition: Stable - Discharge Order Discharge Orders: Discharge Order (Routine); Ordered 08/15/18 Ordered By: Sweetie Colbert - Discharge Details Anticipated Discharge Date: 08/15/18 - Physicians Team Primary Care Provider: Rodolfo Be Attending Provider: Sweetie Colbert Other Providers: Dae Winkler MD ; [facility],[place]
--- NOTE | 2018-08-15 15:06 | P.PN ---
Subjective Interval history: The patient is seen bed she appears tired and sleepy. However she is arousable. No cough. No shortness of breath she is saturating well on nasal cannula. No chest pain. No nausea or vomiting no diarrhea constipation. Has decreased appetite. Physical Exam Vital signs: Vital Signs 08/14/18 16:00 08/14/18 19:31 08/14/18 20:00 Temperature 98.3 F 98.2 F Pulse Rate 41 L 41 L Respiratory Rate 20 18 Blood Pressure 130/58 L 136/58 L Pulse Oximetry 95 96 95 08/15/18 00:00 08/15/18 03:57 08/15/18 04:00 Temperature 97.9 F 97.7 F Pulse Rate 38 L 38 L 36 L Respiratory Rate 18 16 Blood Pressure 126/63 139/66 Pulse Oximetry 94 L 94 L 08/15/18 07:47 08/15/18 08:00 08/15/18 09:00 Temperature 97.2 F L Pulse Rate 38 L 36 L Respiratory Rate 22 22 Blood Pressure 155/65 H Pulse Oximetry 97 08/15/18 11:43 08/15/18 12:04 Temperature 97.3 F L Pulse Rate 37 L 36 L Respiratory Rate 16 Blood Pressure 118/69 Pulse Oximetry 98 Intake & Output 08/14/18 08/15/18 08/15/18 18:59 06:59 18:59 Intake Total 60 / 60 Balance 60 / 60 Weight 57 kg Intake: Oral 60 / 60 Other: # Voids 1 1 Date of Last Bowel Movement 08/11/18 08/11/18 08/11/18 # Bowel Movements 0 Narrative: GENERAL: Patient lying in bed. Appears comfortable. CARDIOVASCULAR: Regular rate and rhythm without murmurs, gallops, or rubs. RESPIRATORY: Breath sounds equal bilaterally. No accessory muscle use. GASTROINTESTINAL: Abdomen soft, non-tender, nondistended. MUSCULOSKELETAL: No cyanosis, or edema. BACK: Nontender without obvious deformity. No CVA tenderness. Results - Labs CBC & Chem 7: 08/15/18 04:55 08/15/18 04:55 Laboratory Results - last 24 hr 08/15/18 08/15/18 04:55 04:55 WBC 9.0 RBC 4.00 Hgb 12.3 Hct 36.2 MCV 90.4 MCH 30.6 MCHC 33.9 RDW 14.3 Plt Count 147 L MPV 12.4 H Prelim Diff (Auto) Slide review pending Neut % (Auto) 76.3 H Lymph % (Auto) 10.3 [place] % (Auto) 12.4 H Eos % (Auto) 0.7 Baso % (Auto) 0.3 Neut # (Auto) 6.8 Lymph # (Auto) 0.9 L [place] # (Auto) 1.1 H Eos # (Auto) 0.1 Baso # (Auto) 0.0 WBC Differential . Diff Scan Auto diff confirmed Differential Comment . Platelet Estimate Normal Platelet Morphology Enlarged H Sodium 143 Potassium 3.9 Chloride 105 Carbon Dioxide 23.6 Anion Gap 14 BUN 39 H Creatinine 1.91 H Estimated GFR 25 L Random Glucose 125 H Calcium 8.5 Total Bilirubin 0.8 AST 15 ALT 43 Alkaline Phosphatase 137 H Total Protein 6.2 L D Albumin 2.7 L Microbiology 08/12/18 14:00 Fluid - Pleural fluid Gram Stain - Final 08/12/18 14:00 Fluid - Pleural fluid Body Fluid Culture - Final No growth in 72 hours (aerobically and anaerobically ) Assessment and Plan - Plan New onset CHF, BNP 615. Acute on chronic diastolic heart failure-echo with LVEF 60-65%, Severe TR, Mild MR Mild AR , severe Pulmonary Hypertension Acute on chronic respiratory failure requiring 5L O2 by [place] Abdominal CT reviewed and shows Moderate-sized bilateral pleural effusions and patchy bilateral lower lobe. -patient is currently on 3-5 liters of oxygen via N/C IR consulted s/p thoracentesis and follow the fluid studies ABG reassuring -will start on Lasix -Consult to cardiology -2d echo ordered = Marketed elevation of pulmonary pressures on echocardiogram. With bradycardia , however significant hypertensive episode with systolics in the 180s. Will add hydralazine for blood pressure control. Cardiology following. Appreciate assistance. Elevated troponin, troponin .06 -Serial troponin and ekg Third-degree AV block EKG reviewed and findings discussed with cardiology Dr Gaona -Monitor telemetry -Appreciate cardiology input -Hold BB -Cardiology following. -Discussed with Dr. Gaona cardiology. Patient needs to be off Namenda for at least 12 days to wear off, if patient still with third-degree AV block there after patient is a candidate for a ICD. The patient and his family is updated about the plan and they agree to it Transaminitis- due to CHF? Abdominal CT reviewed and shows Bilateral inguinal hernias with multiple loops of small bowel in the right lateral hernia. No dilated loops of small or large bowel, and a 12 mm densely enhancing lesion in the posterior segment of the right lobe of the liver. -Trend LFTs --Avoid hepatotoxins -Protonix IV BID -Consult GI if LFT's trending up. Reported right hip pain after a questionable fall - check XR right hip -negative Hypertension, currently elevated -Resumed home losartan -Avoid beta blockers = 08/13. Blood pressure is elevated in the 180s. Start on hydralazine scheduled. Likely bradycardia is reactive secondary to hypertension. Dementia - resume home meds Fall consult PT. DVT prophylaxis: Heparin sq Discharge Planning: DC to SNF (PO), pending improvement and pending cardiology clearance Discussed with Dr. Gaona cardiology. Patient needs to be off Namenda for at least 12 days to wear off, if patient still with third-degree AV block there after patient is a candidate for a ICD. The patient and his family is updated about the plan and they agree to it.
--- NOTE | 2018-08-15 19:33 | ECG ---
Date Performed: 08/15/2018 Time Performed: 08:23:55 PTAGE: 88 years EKG: THIRD DEGREE HEART BLOCK ST DEVIATION AND MODERATE T-WAVE ABNORMALITY, CONSIDER ANTERIOR IS CHEMIA ABNORMAL ECG PREVIOUS TRACING : 08/14/2018 08.42 Since the previous tracing, no significant change noted DOCTOR: Herman Donnelly Interpretating Date/Time 08/15/2018 19:31:31
[2018-08-15] MEDS ORDERED: Sod Chloride 0.9% Inj 1,000 ML IV.SIG SCH (21:00)
[2018-08-16] MEDS: Pantoprazole Inj 40 MG Vial IV.PUSH SCH ×3 (01:03→22:19)
[2018-08-16] MEDS: hydrALAZINE 50 MG Tablet PO SCH ×3 (09:44→17:54)
[2018-08-16] MEDS: Sodium Chloride 0.9% 2 ML Flush BID IV.FLUSH SCH ×2 (09:44→22:16)
[2018-08-16] MEDS: Heparin - SQ 10,000 UNITS/ML Vial SQ SCH ×2 (09:44→22:16)
[2018-08-16 10:08] LABS: Calcium 8.5 mg/dL (8.5-10.1); Carbon Dioxide 24.6 meq/L (21.0-32.0); Potassium 4.4 meq/L (3.5-5.1)
--- NOTE | 2018-08-16 10:35 | P.PN ---
Subjective Interval history: The patient is a bed she is sleepy. Decreased appetite. No nausea or vomiting. Not eating much. Kidney function is worsening. DC Lasix. Consult nephrology. Received gentle IV fluids. Physical Exam Vital signs: Vital Signs 08/15/18 11:43 08/15/18 12:04 08/15/18 16:00 Temperature 97.3 F L 97.6 F Pulse Rate 37 L 36 L 39 L Respiratory Rate 16 18 Blood Pressure 118/69 149/65 H Pulse Oximetry 98 96 08/15/18 16:02 08/15/18 17:01 08/15/18 20:00 Temperature 97.6 F Pulse Rate 38 L 40 L Respiratory Rate 16 Blood Pressure 118/63 Pulse Oximetry 98 97 08/16/18 00:00 08/16/18 04:00 08/16/18 08:00 Temperature 97.8 F 97.7 F 97.6 F Pulse Rate 40 L 37 L 42 L Respiratory Rate 16 16 20 Blood Pressure 117/66 115/69 161/73 H Pulse Oximetry 97 97 97 Intake & Output 08/15/18 08/16/18 08/16/18 18:59 06:59 18:59 Weight 57 kg Other: # Voids 2 Date of Last Bowel Movement 08/11/18 # Bowel Movements 0 Narrative: GENERAL: Patient lying in bed. Appears comfortable. CARDIOVASCULAR: Regular rate and rhythm without murmurs, gallops, or rubs. RESPIRATORY: Breath sounds equal bilaterally. No accessory muscle use. GASTROINTESTINAL: Abdomen soft, non-tender, nondistended. MUSCULOSKELETAL: No cyanosis, or edema. BACK: Nontender without obvious deformity. No CVA tenderness. Results - Labs CBC & Chem 7: 08/15/18 04:55 08/16/18 09:04 Laboratory Results - last 24 hr 08/16/18 09:04 Sodium 137 Potassium 4.4 Chloride 104 Carbon Dioxide 24.6 Anion Gap 8 BUN 60 H Creatinine 2.14 H Estimated GFR 22 L Random Glucose 117 H Calcium 8.5 Microbiology 08/12/18 14:00 Fluid - Pleural fluid Gram Stain - Final 08/12/18 14:00 Fluid - Pleural fluid Body Fluid Culture - Final No growth in 72 hours (aerobically and anaerobically ) Assessment and Plan - Plan New onset CHF, BNP 615. Acute on chronic diastolic heart failure-echo with LVEF 60-65%, Severe TR, Mild MR Mild AR , severe Pulmonary Hypertension Acute on chronic respiratory failure requiring 5L O2 by [place] Abdominal CT reviewed and shows Moderate-sized bilateral pleural effusions and patchy bilateral lower lobe. -patient is currently on 3-5 liters of oxygen via N/C IR consulted s/p thoracentesis and follow the fluid studies ABG reassuring -will start on Lasix -Consult to cardiology -2d echo ordered = Marketed elevation of pulmonary pressures on echocardiogram. With bradycardia , however significant hypertensive episode with systolics in the 180s. Will add hydralazine for blood pressure control. Cardiology following. Appreciate assistance. - -The patient is over diuresis with Lasix. DC Lasix. Received gentle IV fluids as patient is more edema. Elevated troponin, troponin .06 -Serial troponin and ekg Third-degree AV block EKG reviewed and findings discussed with cardiology Dr Gaona -Monitor telemetry -Appreciate cardiology input -Hold BB -Cardiology following. -Discussed with Dr. Gaona cardiology. Patient needs to be off Namenda for at least 12 days to wear off, if patient still with third-degree AV block there after patient is a candidate for a ICD. The patient and his family is updated about the plan and they agree to it Transaminitis- due to CHF? Abdominal CT reviewed and shows Bilateral inguinal hernias with multiple loops of small bowel in the right lateral hernia. No dilated loops of small or large bowel, and a 12 mm densely enhancing lesion in the posterior segment of the right lobe of the liver. -Trend LFTs --Avoid hepatotoxins -Protonix IV BID -Consult GI if LFT's trending up. Reported right hip pain after a questionable fall - check XR right hip -negative Hypertension, currently elevated -Resumed home losartan -Avoid beta blockers = 08/13. Blood pressure is elevated in the 180s. Start on hydralazine scheduled. Likely bradycardia is reactive secondary to hypertension. Dementia - resume home meds Fall consult PT. DVT prophylaxis: Heparin sq Discharge Planning: DC to SNF (PO), pending improvement and pending cardiology clearance Discussed with Dr. Gaona cardiology. Patient needs to be off Namenda for at least 12 days to wear off, if patient still with third-degree AV block there after patient is a candidate for a ICD. The patient and his family is updated about the plan and they agree to it. Kidney function is getting worse, DC this time. Consult nephrology.
--- NOTE | 2018-08-16 16:43 | MB ---
cc: Shelly Kruse MD DATE: 08/16/2018 REASON FOR CONSULTATION: Acute kidney injury with elevated BUN and creatinine. HISTORY OF PRESENT ILLNESS: This is an 88-year-old female who was admitted on 08/11/2018 with complaint of abdominal pain and not eating well. I was called to see the patient because of elevated BUN and creatinine. The patient has creatinine of 1.1 on admission, which improved to 0.8 and was fluctuating and now it has gone up from 1.9 to 2.1. Patient is not eating well and she is not a very good historian. Most of the history was taken from patient's chart and some from the patient's son, who is at the bedside. The patient has underlying dementia. She has past medical history of hypertension, hyperlipidemia and she also has chronic back pain and right hip pain and she was prescribed some pain medications which was given as an outpatient. Here in the hospital the patient is not eating well. She has no nausea or vomiting. Denies any abdominal pain. There is no history of diarrhea. PAST MEDICAL HISTORY: Dementia, hypertension, hyperlipidemia, gastroesophageal reflux disease. PAST SURGICAL HISTORY: Hysterectomy. REVIEW OF SYSTEMS: The patient has generalized weakness lying in bed and sleeping most of the time, not eating well. Denies any shortness of breath. No abdominal pain. No nausea, vomiting. No history of diarrhea. She has urinary incontinence. SOCIAL HISTORY: The son is with the patient. She has past history of smoking. There is no history of heavy alcoholism. FAMILY HISTORY: Noncontributory. ALLERGIES: SHE HAS NO KNOWN DRUG ALLERGIES. MEDICATIONS: Currently, she is on: 1. Aspirin 81 mg once a day. 2. Enalapril IV as needed. 3. Heparin 5000 subcutaneous every 12 hours. 4. Hydralazine 50 mg t.i.d. 5. Cozaar 50 mg at bedtime. 6. Zofran as needed. 7. Protonix 40 mg q.12 hours. 8. Ultram 50 mg once a day. She was on Lasix, which was stopped and last dose was given yesterday morning. PHYSICAL EXAMINATION: GENERAL: The patient is sleepy but arousable. She is not in acute distress. VITAL SIGNS: Her last blood pressure is 173/66, temperature 97.7, oxygen saturation 96% to 97%. Blood pressure has been on the higher side, and when she came in here, the systolic was about 200. HEENT: Pupils are mid constricted. Nonicteric sclerae. Conjunctivae pale. NECK: Supple. JVD is not elevated. LUNGS: The patient has bilateral decreased air entry with occasional wheezing. HEART: S1, S2. Regular rate and rhythm. ABDOMEN: Distended, soft, lax. There is no tenderness. Bowel sounds positive. EXTREMITIES: She has no pedal edema. LABORATORY DATA: WBC count 9.0, hemoglobin 12.3 with platelet count of 147, neutrophils 76.3%. INR is 1.1. Sodium is 137, potassium 4.4, chloride 104, bicarbonate 24.6, BUN 60, creatinine 2.1, glucose 117, total protein 6.2, albumin of 2.7. TSH is 1.6, T4 is 1.59. The patient has a pleural tap done with RBCs in the pleural fluid of 28, WBC neutrophils, 6%. LDH 90, glucose 152. IMAGING STUDIES: The patient had a chest x-ray done 3 days ago and it showed cardiomegaly with bibasilar patches. CT scan abdomen and pelvis was done on 08/11/2010 and is shows that she had bilateral inguinal hernia, a 12 mm enhancing lesions in the posterior segment of the right lobe of the liver, moderate size bilateral pleural effusion. Kidneys are reported as normal in size. No evidence of mass or hydronephrosis. ASSESSMENT AND PLAN: 1. Acute kidney injury. 2. Not eating well and dehydration. 3. Bilateral pleural effusion. 4. Hypertension. 5. Third-degree AV block. 6. Respiratory failure. The patient has acute kidney injury, most likely is related to diuretic or maybe cardiorenal syndrome. Cardiology has been following the patient and she has bradycardia, but there is no documented hypotension. I agree with ultrasound of the kidney and check the urine sodium and osmolality and agree with holding the diuretics at present and I will also hold losartan since the creatinine is going up. Once the creatinine is better, then it can be restarted. Her blood pressure is on the higher side and hydralazine was started yesterday, so this needs to be followed up and adjust the medications as needed. She was given some fluid but with her recent pleural effusion and cardiac condition, it is better to avoid too much IV fluid, but encourage volume intake. Thank you for the consultation. I will follow the patient while she is in the hospital. MD MEY De Anda/ct , 03:54 PM , 04:08 PM
--- NOTE | 2018-08-16 17:30 | US ---
EXAM DATE: 08/16/2018 12:00 AM EDT AGE/SEX: 88 years / Female INDICATIONS: Increased BUN/Creatnine. CLINICAL DATA: This is the patient's initial encounter. Patient reports that signs and symptoms have been present for 1 day and indicates a pain score of 0/10. MEDICAL/SURGICAL HISTORY: Gastroesophageal reflux disease. Hypercholesterolemia. Hypertension . Dementia. Diaphragmatic hernia. Hysterectomy. COMPARISON: [facility] [place], US ABDOMEN LIVER, 08/12/2018. . MEASUREMENTS: Right Kidney:__10.1 x 3.9 x 3.6 cm Left Kidney:__9.5 x 3.9 x 4.1 cm FINDINGS: Right Kidney: Increased echotexture. No mass or hydronephrosis. Left Kidney: Increased echotexture. No mass or hydronephrosis. Bladder: Within normal limits given the degree of distension. Other: Small bilateral pleural effusions. CONCLUSION: 1. Mildly echogenic kidneys consistent with medical renal disease. 2. No evidence for obstructive uropathy. 3. Small bilateral pleural effusions. Electronically signed by: Howard Martinez MD 08/16/2018 5:28 PM EDT
--- NOTE | 2018-08-16 21:44 | P.PNCA ---
Subjective Interval history: NO COMPLAINTS OF CHEST PAIN OR SOB TELEMETRY SHOWS NO COMPLETE HEART BLOCK, HR 35-40 BPM, JUNCTIONAL ESCAPE RHYTHM SHE IS RELATIVELY ASYMPTOMATIC. Medications and Allergies Active Medications: Active Medications Albuterol (Albuterol Neb (Prn)) 1.25 mg NEB Q4HR NEB PRN PRN Reason: sob Aspirin (Ecotrin) 81 mg PO DAILY [facility] Last Admin: 08/16/18 09:44 Dose: 81 mg Enalaprilat (Vasotec Inj) 1.25 mg IV.PUSH Q8H PRN PRN Reason: SBP > 180 or DBP >100 Last Admin: 08/12/18 09:32 Dose: 1.25 mg Heparin Sodium (Porcine) (Heparin Inj) 5,000 units SQ Q12H [facility] Last Admin: 08/16/18 09:44 Dose: 5,000 units Hydralazine HCl (Apresoline) 50 mg PO TID [facility] Last Admin: 08/16/18 17:54 Dose: 50 mg Losartan Potassium (Cozaar) 50 mg PO HS [facility] Last Admin: 08/15/18 21:49 Dose: 50 mg Ondansetron HCl (Zofran Inj) 4 mg IV.PUSH Q6H PRN PRN Reason: NAUSEA OR VOMITING Pantoprazole Sodium (Protonix Inj) 40 mg IV.PUSH Q12H [facility] Last Admin: 08/16/18 12:13 Dose: 40 mg Sodium Chloride (Ns Flush) 2 ml IV.FLUSH BID [facility] Last Admin: 08/16/18 09:44 Dose: 2 ml Sodium Chloride (Ns Flush) 2 ml IV.FLUSH PRN PRN PRN Reason: FLUSH AFTER USING IV ACCESS Tramadol HCl (Ultram) 50 mg PO Q8H PRN PRN Reason: PAIN SCALE 1 TO 10 Last Admin: 08/16/18 09:43 Dose: 50 mg Allergies Allergy/AdvReac Type Severity Reaction Status Date / Time No Known Allergies Allergy Uncoded 05/14/17 17:16 Home Medications Medication Instructions Recorded Confirmed Type aspirin [Aspirin Low Dose] 81 mg PO DAILY 08/11/18 08/11/18 History losartan 50 mg PO DAILY 08/11/18 08/11/18 History memantine [Namenda] 10 mg PO BID 08/11/18 08/11/18 History simvastatin 10 mg PO QPM 08/11/18 08/11/18 History Physical Exam Vital signs: Vital Signs 08/16/18 00:00 08/16/18 04:00 08/16/18 08:00 Temperature 97.8 F 97.7 F 97.6 F Pulse Rate 40 L 37 L 42 L Respiratory Rate 16 16 18 Blood Pressure 117/66 115/69 161/73 H Pulse Oximetry 97 97 97 08/16/18 08:02 08/16/18 10:56 08/16/18 12:00 Temperature Pulse Rate 38 L 37 L Respiratory Rate Blood Pressure Pulse Oximetry 97 08/16/18 12:10 08/16/18 16:00 08/16/18 17:11 Temperature 97.7 F Pulse Rate 39 L 39 L Respiratory Rate 18 Blood Pressure 173/66 H Pulse Oximetry 96 96 08/16/18 17:50 Temperature Pulse Rate 39 L Respiratory Rate Blood Pressure 164/73 H Pulse Oximetry Intake & Output 08/16/18 08/16/18 08/17/18 06:59 18:59 06:59 Intake Total 1260 / 1260 Balance 1260 / 1260 Weight 57 kg Intake: IV 780 / 780 NS Inj 1,000 ML @ 60 mls/hr IV. 780 / 780 SIG .[id number] [facility] Rx#:[id number] Oral 480 / 480 Other: # Voids 1 Date of Last Bowel Movement 08/11/18 - Constitutional no acute distress - Routine HEENT Exam Head: Present: normocephalic Eye: Present: EOMI ENT: Present: mucous membranes moist - Routine Neck Exam Present: supple - Routine Respiratory Exam Present: CTA bilaterally - Routine Cardiovascular Exam Present: RRR, bradycardia - Routine Abdominal Exam Present: soft, normoactive bowel sounds - Routine Skin Exam Present: dry - Routine Neurological Exam Present: alert - Detailed Neurological Exam: Coma Scale Eye Opening: Spontaneous Verbal Response: Oriented - Routine Psychiatric Exam Present: normal affect Results 08/15/18 04:55 08/16/18 09:04 Cardiac Enzymes 08/15/18 Range/Units 04:55 AST 15 (15-37) U/L CBC 08/15/18 Range/Units 04:55 WBC 9.0 (4.0-11.0) th/mm3 RBC 4.00 (4.00-5.30) mil/mm3 Hgb 12.3 (11.6-15.3) gm/dL Hct 36.2 (35.0-46.0) % Plt Count 147 L (150-450) th/mm3 Neut # (Auto) 6.8 (1.8-7.7) th/mm3 Lymph # (Auto) 0.9 L (1.0-4.8) th/mm3 [place] # (Auto) 1.1 H (0.0-0.9) th/mm3 Eos # (Auto) 0.1 (0.0-0.4) th/mm3 Baso # (Auto) 0.0 (0.0-0.2) th/mm3 Comprehensive Metabolic Panel 08/15/18 08/16/18 Range/Units 04:55 09:04 Sodium 143 137 (136-145) meq/L Potassium 3.9 4.4 (3.5-5.1) meq/L Chloride 105 104 (98-107) meq/L Carbon Dioxide 23.6 24.6 (21.0-32.0) meq/L BUN 39 H 60 H (7-18) mg/dL Creatinine 1.91 H 2.14 H (0.50-1.00) mg/dL Calcium 8.5 8.5 (8.5-10.1) mg/dL AST 15 (15-37) U/L ALT 43 (10-53) U/L Alkaline Phosphatase 137 H (45-117) U/L Total Protein 6.2 L D (6.4-8.2) g/dL Albumin 2.7 L (3.4-5.0) g/dL Intake and Output 08/16/18 08/16/18 08/16/18 06:59 14:59 22:59 Intake Total 1260 / 1260 Balance 1260 / 1260 Intake: IV 780 / 780 NS Inj 1,000 ML @ 60 mls/hr IV. 780 / 780 SIG .[id number] [facility] Rx#:[id number] Oral 480 / 480 Other: # Voids 1 Date of Last Bowel Movement 08/11/18 Weight 57 kg - Imaging and Cardiology Imaging: Impressions Abdomen/Bladder Ultrasound 08/16/18 00:00 CONCLUSION: 1. Mildly echogenic kidneys consistent with medical renal disease. 2. No evidence for obstructive uropathy. 3. Small bilateral pleural effusions. Assessment and Plan - Plan 1. Acute on chronic diastolic heart failure-echo with LVEF 60-65%, Severe TR, Mild MR Mild AR , severe Pulmonary Hypertension 2. Bradycardia-normal TSH with mildly elevated T4. Beta Blockers on hold. 3. Hypertension-on lopressor. 4. COMPLETE HEART BLOCK WITH JUNCTIONAL ESCAPE RHYTHM, HR 35-40S BPM PLAN: AWAIT NAMENDA WASHOUT. WILL LIKELY NEED DUAL CHAMBER PACER.
[2018-08-17 06:40] LABS: Baso % (Auto) 0.5 % (0.0-2.0); Eos # (Auto) 0.1 th/mm3 (0.0-0.4); Eos % (Auto) 2.1 % (0.0-4.0); Hematocrit 35.8 % (35.0-46.0); Hemoglobin 12.1 gm/dL (11.6-15.3); Lymph # (Auto) 0.9 th/mm3 (1.0-4.8); Lymph % (Auto) 12.9 % (9.0-44.0); Mean Corpuscular HGB Conc 33.8 % (32.0-36.0); Mean Corpuscular Hemoglobin 30.5 pg (27.0-34.0); Mean Corpuscular Volume 90.4 fL (80.0-100.0); Mean Platelet Volume 12.9 fL (7.0-11.0); Mono # (Auto) 0.9 th/mm3 (0.0-0.9); Mono % (Auto) 12.5 % (0.0-8.0); Neut # (Auto) 5.2 th/mm3 (1.8-7.7); Platelet Count 146 th/mm3 (150-450); Red Blood Count 3.96 mil/mm3 (4.00-5.30); Red Cell Distribution Width 14.3 % (11.6-17.2); White Blood Count 7.2 th/mm3 (4.0-11.0)
[2018-08-17 06:56] LABS: Albumin 2.5 g/dL (3.4-5.0); Anion Gap 9 meq/L (5-15); Aspartate Aminotransferase 17 U/L (15-37); Blood Urea Nitrogen 67 mg/dL (7-18); Calcium 8.3 mg/dL (8.5-10.1); Carbon Dioxide 22.7 meq/L (21.0-32.0); Chloride 106 meq/L (98-107); Glomerular Filtration Rate 25 mL/min (>89); Glucose,Random 115 mg/dL (74-106); Potassium 4.1 meq/L (3.5-5.1); Sodium 138 meq/L (136-145)
[2018-08-17 06:57] LABS: Alanine Aminotransferase 33 U/L (10-53)
[2018-08-17 07:00] LABS: Alkaline Phosphatase 119 U/L (45-117)
[2018-08-17] MEDS: Heparin - SQ 10,000 UNITS/ML Vial SQ SCH ×2 (08:06→20:40)
[2018-08-17] MEDS: Sodium Chloride 0.9% 2 ML Flush BID IV.FLUSH SCH ×2 (08:07→20:48)
[2018-08-17] MEDS: hydrALAZINE 50 MG Tablet PO SCH ×3 (08:07→17:47)
--- NOTE | 2018-08-17 10:49 | P.PNNP ---
Subjective Interval history: Patient is alert, not in distress, not eating well. Physical Exam Vital signs: Vital Signs 08/16/18 10:56 08/16/18 12:00 08/16/18 12:10 Temperature 97.7 F Pulse Rate 37 L 39 L Respiratory Rate 18 Blood Pressure 173/66 H Pulse Oximetry 97 96 08/16/18 16:00 08/16/18 17:11 08/16/18 17:50 Temperature Pulse Rate 39 L 39 L Respiratory Rate Blood Pressure 164/73 H Pulse Oximetry 96 08/16/18 20:00 08/17/18 00:00 08/17/18 04:00 Temperature 98.1 F 98.5 F 97.7 F Pulse Rate 39 L 38 L 37 L Respiratory Rate 18 20 18 Blood Pressure 138/61 132/58 L 148/71 H Pulse Oximetry 94 L 95 92 L 08/17/18 08:00 Temperature Pulse Rate Respiratory Rate Blood Pressure Pulse Oximetry 95 Intake & Output 08/16/18 08/17/18 08/17/18 18:59 06:59 18:59 Intake Total 1260 / 1260 Balance 1260 / 1260 Intake: IV 780 / 780 NS Inj 1,000 ML @ 60 mls/hr IV. 780 / 780 SIG .[id number] [facility] Rx#:[id number] Oral 480 / 480 Other: # Voids 1 Date of Last Bowel Movement 08/11/18 Narrative: GENERAL: Patient lying in bed. Appears comfortable. CARDIOVASCULAR: Regular rate and rhythm without murmurs, gallops, or rubs. RESPIRATORY: Breath sounds equal bilaterally. No accessory muscle use. GASTROINTESTINAL: Abdomen soft, non-tender, nondistended. MUSCULOSKELETAL: No cyanosis, or edema. BACK: Nontender without obvious deformity. No CVA tenderness. Assessment and Plan - Assessment (1) Acute kidney failure Code(s): N17.9 - Acute kidney failure, unspecified Status: Acute (2) Acute exacerbation of CHF (congestive heart failure) Code(s): I50.9 - Heart failure, unspecified Status: Acute Qualifiers: Heart failure type: unspecified Qualified Code(s): I50.9 - Heart failure, unspecified (3) Elevated troponin Code(s): R74.8 - Abnormal levels of other serum enzymes Status: Acute - Plan Patient develop Acute kidney injury. Most likely has pre renal and possible ATN. Diuretics on hold. BP is stable. Follow the urine out put and BMP. Encourage oral intake. U/S abd. noted.
[2018-08-17] MEDS: Pantoprazole Inj 40 MG Vial IV.PUSH SCH ×2 (11:16→23:43)
--- NOTE | 2018-08-17 13:51 | P.PN ---
Subjective Interval history: She is complaining of back pain/right hip pain chronic. She is more awake and alert. Still pleasantly confused. No chest pain or shortness of breath. No nausea or vomiting still not eating much. No lightheadedness. Kidney function improving slowly. Physical Exam Vital signs: Vital Signs 08/16/18 16:00 08/16/18 17:11 08/16/18 17:50 Temperature Pulse Rate 39 L 39 L Respiratory Rate Blood Pressure 164/73 H Pulse Oximetry 96 08/16/18 20:00 08/17/18 00:00 08/17/18 04:00 Temperature 98.1 F 98.5 F 97.7 F Pulse Rate 39 L 38 L 37 L Respiratory Rate 18 20 18 Blood Pressure 138/61 132/58 L 148/71 H Pulse Oximetry 94 L 95 92 L 08/17/18 08:00 08/17/18 09:00 08/17/18 12:00 Temperature 98 F 97.8 F Pulse Rate 38 L 38 L 40 L Respiratory Rate 16 18 Blood Pressure 168/76 H 140/66 Pulse Oximetry 95 93 L 08/17/18 12:06 Temperature Pulse Rate Respiratory Rate Blood Pressure Pulse Oximetry 95 Intake & Output 08/16/18 08/17/18 08/17/18 18:59 06:59 18:59 Intake Total 1260 / 1260 Balance 1260 / 1260 Intake: IV 780 / 780 NS Inj 1,000 ML @ 60 mls/hr IV. 780 / 780 SIG .[id number] [facility] Rx#:[id number] Oral 480 / 480 Other: # Voids 1 Date of Last Bowel Movement 08/11/18 Narrative: GENERAL: Patient lying in bed. Appears comfortable. Pleasantly confused. CARDIOVASCULAR: Regular rate and rhythm without murmurs, gallops, or rubs. RESPIRATORY: Breath sounds equal bilaterally. No accessory muscle use. GASTROINTESTINAL: Abdomen soft, non-tender, nondistended. MUSCULOSKELETAL: No cyanosis, or edema. BACK: Nontender without obvious deformity. No CVA tenderness. Results - Labs CBC & Chem 7: 08/17/18 05:32 08/17/18 05:32 Laboratory Results - last 24 hr 08/16/18 08/16/18 08/17/18 18:30 18:30 05:32 WBC 7.2 RBC 3.96 L Hgb 12.1 Hct 35.8 MCV 90.4 MCH 30.5 MCHC 33.8 RDW 14.3 Plt Count 146 L MPV 12.9 H Neut % (Auto) 72.0 H Lymph % (Auto) 12.9 [place] % (Auto) 12.5 H Eos % (Auto) 2.1 Baso % (Auto) 0.5 Neut # (Auto) 5.2 Lymph # (Auto) 0.9 L [place] # (Auto) 0.9 Eos # (Auto) 0.1 Baso # (Auto) 0.0 WBC Differential . Differential Comment Auto diff final Sodium Potassium Chloride Carbon Dioxide Anion Gap BUN Creatinine Estimated GFR Random Glucose Calcium Total Bilirubin AST ALT Alkaline Phosphatase Total Protein Albumin Urine Osmolality 435 Ur Random Sodium 35 08/17/18 05:32 WBC RBC Hgb Hct MCV MCH MCHC RDW Plt Count MPV Neut % (Auto) Lymph % (Auto) [place] % (Auto) Eos % (Auto) Baso % (Auto) Neut # (Auto) Lymph # (Auto) [place] # (Auto) Eos # (Auto) Baso # (Auto) WBC Differential Differential Comment Sodium 138 Potassium 4.1 Chloride 106 Carbon Dioxide 22.7 Anion Gap 9 BUN 67 H Creatinine 1.92 H Estimated GFR 25 L Random Glucose 115 H Calcium 8.3 L Total Bilirubin 0.6 AST 17 ALT 33 Alkaline Phosphatase 119 H Total Protein 6.0 L Albumin 2.5 L Urine Osmolality Ur Random Sodium - Imaging Impressions Abdomen/Bladder Ultrasound 08/16/18 00:00 CONCLUSION: 1. Mildly echogenic kidneys consistent with medical renal disease. 2. No evidence for obstructive uropathy. 3. Small bilateral pleural effusions. Assessment and Plan - Plan New onset CHF, BNP 615. Acute on chronic diastolic heart failure-echo with LVEF 60-65%, Severe TR, Mild MR Mild AR , severe Pulmonary Hypertension Acute on chronic respiratory failure requiring 5L O2 by NH Abdominal CT reviewed and shows Moderate-sized bilateral pleural effusions and patchy bilateral lower lobe. -patient is currently on 3-5 liters of oxygen via N/C IR consulted s/p thoracentesis and follow the fluid studies ABG reassuring -will start on Lasix -Consult to cardiology -2d echo ordered = Marketed elevation of pulmonary pressures on echocardiogram. With bradycardia , however significant hypertensive episode with systolics in the 180s. Will add hydralazine for blood pressure control. Cardiology following. Appreciate assistance. - -The patient is over diuresis with Lasix. DC Lasix. Received gentle IV fluids as patient is more edema. Elevated troponin, troponin .06 -Serial troponin and ekg Third-degree AV block EKG reviewed and findings discussed with cardiology Dr Gaona -Monitor telemetry -Appreciate cardiology input -Hold BB -Cardiology following. -Discussed with Dr. Gaona cardiology. Patient needs to be off Namenda for at least 12 days to wear off, if patient still with third-degree AV block there after patient is a candidate for a ICD. The patient and his family is updated about the plan and they agree to it Transaminitis- due to CHF? Abdominal CT reviewed and shows Bilateral inguinal hernias with multiple loops of small bowel in the right lateral hernia. No dilated loops of small or large bowel, and a 12 mm densely enhancing lesion in the posterior segment of the right lobe of the liver. -Trend LFTs --Avoid hepatotoxins -Protonix IV BID -Consult GI if LFT's trending up. Reported right hip pain after a questionable fall - check XR right hip -negative - Add Tylenol as needed for pain control. Hypertension, currently elevated -Resumed home losartan -Avoid beta blockers = 08/13. Blood pressure is elevated in the 180s. Start on hydralazine scheduled. Likely bradycardia is reactive secondary to hypertension. Dementia - resume home meds Fall consult PT. DVT prophylaxis: Heparin sq Discharge Planning: DC to SNF (PO), pending improvement and pending cardiology clearance Discussed with Dr. Gaona cardiology. Patient needs to be off Namenda for at least 12 days to wear off, if patient still with third-degree AV block there after patient is a candidate for a ICD. The patient and his family is updated about the plan and they agree to it. Kidney function noted getting worse, consult nephrology, ff. Kidney function is improving slowly. Discussed Condition With: pt, nurse
--- NOTE | 2018-08-17 16:49 | P.PNCA ---
Subjective Interval history: NO COMPLAINTS OF CHEST PAIN OR SOB SON AT BEDSIDE TELEMETRY SHOWS MORE PROMINENT P WAVES BUT SHE REMAINS IN CHB WITH JUNCTIONAL RHYTHM Medications and Allergies Active Medications: Active Medications Albuterol (Albuterol Neb (Prn)) 1.25 mg NEB Q4HR NEB PRN PRN Reason: sob Aspirin (Ecotrin) 81 mg PO DAILY [facility] Last Admin: 08/17/18 08:05 Dose: Not Given Enalaprilat (Vasotec Inj) 1.25 mg IV.PUSH Q8H PRN PRN Reason: SBP > 180 or DBP >100 Last Admin: 08/12/18 09:32 Dose: 1.25 mg Heparin Sodium (Porcine) (Heparin Inj) 5,000 units SQ Q12H [facility] Last Admin: 08/17/18 08:06 Dose: 5,000 units Hydralazine HCl (Apresoline) 50 mg PO TID [facility] Last Admin: 08/17/18 12:54 Dose: 50 mg Losartan Potassium (Cozaar) 50 mg PO HS [facility] Last Admin: 08/16/18 22:16 Dose: 50 mg Ondansetron HCl (Zofran Inj) 4 mg IV.PUSH Q6H PRN PRN Reason: NAUSEA OR VOMITING Pantoprazole Sodium (Protonix Inj) 40 mg IV.PUSH Q12H [facility] Last Admin: 08/17/18 11:16 Dose: 40 mg Sodium Chloride (Ns Flush) 2 ml IV.FLUSH BID [facility] Last Admin: 08/17/18 08:07 Dose: 2 ml Sodium Chloride (Ns Flush) 2 ml IV.FLUSH PRN PRN PRN Reason: FLUSH AFTER USING IV ACCESS Tramadol HCl (Ultram) 50 mg PO Q8H PRN PRN Reason: PAIN SCALE 1 TO 10 Last Admin: 08/16/18 22:25 Dose: 50 mg Allergies Allergy/AdvReac Type Severity Reaction Status Date / Time No Known Allergies Allergy Uncoded 05/14/17 17:16 Home Medications Medication Instructions Recorded Confirmed Type aspirin [Aspirin Low Dose] 81 mg PO DAILY 08/11/18 08/11/18 History losartan 50 mg PO DAILY 08/11/18 08/11/18 History memantine [Namenda] 10 mg PO BID 08/11/18 08/11/18 History simvastatin 10 mg PO QPM 08/11/18 08/11/18 History Physical Exam Vital signs: Vital Signs 10/13/18 17:11 08/16/18 17:50 08/16/18 20:00 Temperature 98.1 F Pulse Rate 39 L 39 L Respiratory Rate 18 Blood Pressure 164/73 H 138/61 Pulse Oximetry 96 94 L 08/17/18 00:00 08/17/18 04:00 08/17/18 08:00 Temperature 98.5 F 97.7 F 98 F Pulse Rate 38 L 37 L 38 L Respiratory Rate 20 18 16 Blood Pressure 132/58 L 148/71 H 168/76 H Pulse Oximetry 95 92 L 95 08/17/18 09:00 08/17/18 12:00 08/17/18 12:06 Temperature 97.8 F Pulse Rate 38 L 40 L Respiratory Rate 18 Blood Pressure 140/66 Pulse Oximetry 93 L 95 Intake & Output 08/16/18 08/17/18 08/17/18 18:59 06:59 18:59 Intake Total 1260 / 1260 Balance 1260 / 1260 Intake: IV 780 / 780 NS Inj 1,000 ML @ 60 mls/hr IV. 780 / 780 SIG .[id number] [facility] Rx#:[id number] Oral 480 / 480 Other: # Voids 1 Date of Last Bowel Movement 08/11/18 - Constitutional no acute distress - Routine HEENT Exam Head: Present: normocephalic ENT: Present: mucous membranes moist - Routine Neck Exam Present: supple - Routine Respiratory Exam Present: CTA bilaterally - Routine Cardiovascular Exam Present: RRR, bradycardia - Routine Abdominal Exam Present: soft - Routine Extremities Exam Present: normal capillary refill - Routine Skin Exam Present: intact - Routine Neurological Exam Present: alert - Detailed Neurological Exam: Coma Scale Eye Opening: Spontaneous - Routine Psychiatric Exam Present: normal affect Results 08/17/18 05:32 08/17/18 05:32 Cardiac Enzymes 08/17/18 Range/Units 05:32 AST 17 (15-37) U/L CBC 08/17/18 Range/Units 05:32 WBC 7.2 (4.0-11.0) th/mm3 RBC 3.96 L (4.00-5.30) mil/mm3 Hgb 12.1 (11.6-15.3) gm/dL Hct 35.8 (35.0-46.0) % Plt Count 146 L (150-450) th/mm3 Neut # (Auto) 5.2 (1.8-7.7) th/mm3 Lymph # (Auto) 0.9 L (1.0-4.8) th/mm3 [place] # (Auto) 0.9 (0.0-0.9) th/mm3 Eos # (Auto) 0.1 (0.0-0.4) th/mm3 Baso # (Auto) 0.0 (0.0-0.2) th/mm3 Comprehensive Metabolic Panel 08/16/18 08/17/18 Range/Units 09:04 05:32 Sodium 137 138 (136-145) meq/L Potassium 4.4 4.1 (3.5-5.1) meq/L Chloride 104 106 (98-107) meq/L Carbon Dioxide 24.6 22.7 (21.0-32.0) meq/L BUN 60 H 67 H (7-18) mg/dL Creatinine 2.14 H 1.92 H (0.50-1.00) mg/dL Calcium 8.5 8.3 L (8.5-10.1) mg/dL AST 17 (15-37) U/L ALT 33 (10-53) U/L Alkaline Phosphatase 119 H (45-117) U/L Total Protein 6.0 L (6.4-8.2) g/dL Albumin 2.5 L (3.4-5.0) g/dL - Imaging and Cardiology Imaging: Impressions Abdomen/Bladder Ultrasound 08/16/18 00:00 CONCLUSION: 1. Mildly echogenic kidneys consistent with medical renal disease. 2. No evidence for obstructive uropathy. 3. Small bilateral pleural effusions. Assessment and Plan - Plan 1. Acute on chronic diastolic heart failure-echo with LVEF 60-65%, Severe TR, Mild MR Mild AR , severe Pulmonary Hypertension 2. Bradycardia-normal TSH with mildly elevated T4. Beta Blockers on hold. 3. Hypertension-on lopressor. 4. COMPLETE HEART BLOCK WITH JUNCTIONAL ESCAPE RHYTHM, HR 35-40S BPM PLAN: AWAIT NAMENDA WASHOUT. PACEMAKER PER DR ADLER. DR ADLER WILL RETURN TOMORROW.
[2018-08-18 07:47] LABS: Albumin 2.6 g/dL (3.4-5.0); Anion Gap 10 meq/L (5-15); Aspartate Aminotransferase 16 U/L (15-37); Blood Urea Nitrogen 69 mg/dL (7-18); Carbon Dioxide 22.7 meq/L (21.0-32.0); Chloride 107 meq/L (98-107); Glomerular Filtration Rate 27 mL/min (>89); Glucose,Random 121 mg/dL (74-106); Sodium 140 meq/L (136-145)
[2018-08-18 08:03] LABS: Alanine Aminotransferase 33 U/L (10-53); Alkaline Phosphatase 111 U/L (45-117); Calcium 8.6 mg/dL (8.5-10.1); Total Protein 6.2 g/dL (6.4-8.2)
[2018-08-18] MEDS: Heparin - SQ 10,000 UNITS/ML Vial SQ SCH ×2 (08:15→22:30)
[2018-08-18] MEDS: hydrALAZINE 50 MG Tablet PO SCH ×3 (08:15→17:51)
--- NOTE | 2018-08-18 09:20 | P.PN ---
Subjective Interval history: Patient is resting comfortably in bed. She is feeling better, except for her hip pain. Still slightly confused. Denies headache, vision changes, chest pain , SOB, nausea, vomiting, diarrhea. Physical Exam Vital signs: Vital Signs 08/17/18 12:00 08/17/18 12:06 08/17/18 16:00 Temperature 97.8 F 97.4 F L Pulse Rate 40 L 42 L Respiratory Rate 18 18 Blood Pressure 140/66 137/93 H Pulse Oximetry 93 L 95 94 L 08/17/18 20:00 08/18/18 00:00 08/18/18 04:00 Temperature 97.5 F L 97.6 F 98 F Pulse Rate 38 L 38 L 38 L Respiratory Rate 18 18 18 Blood Pressure 122/55 L 114/76 170/62 H Pulse Oximetry 94 L 91 L 93 L 08/18/18 08:57 Temperature Pulse Rate Respiratory Rate Blood Pressure Pulse Oximetry 94 L Intake & Output 08/17/18 08/18/18 08/18/18 18:59 06:59 18:59 Intake Total 480 / 480 Balance 480 / 480 Weight 69 kg Intake: Oral 480 / 480 Other: # Voids 1 Narrative: GENERAL: Patient lying in bed. Appears comfortable. Pleasant, confused. CARDIOVASCULAR: Bradycardic but regular rhythm without murmurs, gallops, or rubs. RESPIRATORY: Breath sounds equal bilaterally. No accessory muscle use. GASTROINTESTINAL: Abdomen soft, non-tender, nondistended. MUSCULOSKELETAL: No cyanosis, or edema. BACK: Nontender without obvious deformity. No CVA tenderness. Results - Labs CBC & Chem 7: 08/17/18 05:32 08/18/18 06:29 Laboratory Results - last 24 hr 08/18/18 06:29 Sodium 140 Potassium 4.0 Chloride 107 Carbon Dioxide 22.7 Anion Gap 10 BUN 69 H Creatinine 1.78 H Estimated GFR 27 L Random Glucose 121 H Calcium 8.6 Total Bilirubin 0.5 AST 16 ALT 33 Alkaline Phosphatase 111 Total Protein 6.2 L Albumin 2.6 L Assessment and Plan - Assessment (1) Acute exacerbation of CHF (congestive heart failure) Code(s): I50.9 - Heart failure, unspecified Status: Acute (2) Elevated troponin Code(s): R74.8 - Abnormal levels of other serum enzymes Status: Acute (3) Liver mass Code(s): R16.0 - Hepatomegaly, not elsewhere classified Status: Acute (4) Acute kidney failure Code(s): N17.9 - Acute kidney failure, unspecified Status: Acute - Plan New onset CHF, BNP 615. Acute on chronic diastolic heart failure-echo with LVEF 60-65%, Severe TR, Mild MR Mild AR , severe Pulmonary Hypertension Acute on chronic respiratory failure requiring 5L O2 by [place] Abdominal CT reviewed and shows Moderate-sized bilateral pleural effusions and patchy bilateral lower lobe. -patient is currently on 3-5 liters of oxygen via N/C -IR consulted s/p thoracentesis and follow the fluid studies -ABG reassuring -will start on Lasix -Consult to cardiology -2d echo ordered -Marketed elevation of pulmonary pressures on echocardiogram. With bradycardia , however significant hypertensive episode with systolics in the 180s. Hydralazine for blood pressure control. Cardiology following. Appreciate assistance. -The patient is over diuresed with Lasix. -Lasix DCed. Elevated troponin, troponin .06 -Serial troponin and ekg Third-degree AV block EKG reviewed and findings discussed with cardiology Dr Gaona -Monitor telemetry -Appreciate cardiology input -Hold BB -Cardiology following. -Discussed with Dr. Gaona cardiology. Patient needs to be off Namenda for at least 12 days to wear off, if patient still with third-degree AV block there after patient is a candidate for a ICD. The patient and his family is updated about the plan and they agree to it Transaminitis- due to CHF? Abdominal CT reviewed and shows Bilateral inguinal hernias with multiple loops of small bowel in the right lateral hernia. No dilated loops of small or large bowel, and a 12 mm densely enhancing lesion in the posterior segment of the right lobe of the liver. -Trend LFTs --Avoid hepatotoxins -Protonix IV BID -Consult GI if LFT's trending up -LFTs stable on 08/18 Acute Kidney Injury Nephrology has seen and evaluated patient. Most likely has pre renal and possible ATN. Recs: Hold diuretics Follow the urine output and BMP Encourage oral intake Cr improving - 2.14 -> 1.92 -> 1.78 Reported right hip pain after a questionable fall -XR right hip -negative - Add Tylenol as needed for pain control - Tramadol 50 mg Q8 PRN Hypertension, currently elevated -Resumed home losartan -Avoid beta blockers -10/10. Blood pressure is elevated in the 180s. Start on hydralazine scheduled. Likely bradycardia is reactive secondary to hypertension. 08/18- BP controlled Dementia - resume home meds Fall consult PT. DVT prophylaxis: Heparin sq Discharge Planning: To rehab Code Status: DNR DVT prophylaxis: heparin SQ Discharge Planning: D/C planning underway to SNF, pending improvement and cardio clearance (1) Acute exacerbation of CHF (congestive heart failure) Qualifiers: Qualified Code(s): I50.9 - Heart failure, unspecified
[2018-08-18] MEDS: Sodium Chloride 0.9% 2 ML Flush BID IV.FLUSH SCH ×2 (10:23→22:31)
--- NOTE | 2018-08-18 11:36 | P.PN ---
Subjective Interval history: Headache improved. Received ibuprofen 1 time. Also more awake and alert son at bedside very supportive. Patient denies any chest pain or shortness of breath. She is not coughing. No nausea vomiting no diarrhea constipation. Back pain is also better controlled Physical Exam Vital signs: Vital Signs 08/17/18 12:00 08/17/18 12:06 08/17/18 16:00 Temperature 97.8 F 97.4 F L Pulse Rate 40 L 42 L Respiratory Rate 18 18 Blood Pressure 140/66 137/93 H Pulse Oximetry 93 L 95 94 L 08/17/18 20:00 08/18/18 00:00 08/18/18 04:00 Temperature 97.5 F L 97.6 F 98 F Pulse Rate 38 L 38 L 38 L Respiratory Rate 18 18 18 Blood Pressure 122/55 L 114/76 170/62 H Pulse Oximetry 94 L 91 L 93 L 08/18/18 08:00 08/18/18 08:57 08/18/18 09:00 Temperature 97.4 F L Pulse Rate 39 L 39 L Respiratory Rate 19 Blood Pressure 149/65 H Pulse Oximetry 91 L 94 L Intake & Output 08/17/18 08/18/18 08/18/18 18:59 06:59 18:59 Intake Total 480 / 480 Balance 480 / 480 Weight 69 kg Intake: Oral 480 / 480 Other: # Voids 1 Date of Last Bowel Movement 08/11/18 Narrative: GENERAL: Patient is a pleasantly confused elderly female, lying in bed. Appears comfortable. CARDIOVASCULAR: Bradycardic but regular rhythm without murmurs, gallops, or rubs. RESPIRATORY: Breath sounds equal bilaterally. No accessory muscle use. GASTROINTESTINAL: Abdomen soft, non-tender, nondistended. MUSCULOSKELETAL: No cyanosis, or edema. BACK: Nontender without obvious deformity. No CVA tenderness. Results - Labs CBC & Chem 7: 08/17/18 05:32 08/18/18 06:29 Laboratory Results - last 24 hr 08/18/18 06:29 Sodium 140 Potassium 4.0 Chloride 107 Carbon Dioxide 22.7 Anion Gap 10 BUN 69 H Creatinine 1.78 H Estimated GFR 27 L Random Glucose 121 H Calcium 8.6 Total Bilirubin 0.5 AST 16 ALT 33 Alkaline Phosphatase 111 Total Protein 6.2 L Albumin 2.6 L Assessment and Plan - Plan New onset CHF, BNP 615. Acute on chronic diastolic heart failure-echo with LVEF 60-65%, Severe TR, Mild MR Mild AR , severe Pulmonary Hypertension Acute on chronic respiratory failure requiring 5L O2 by [place] Abdominal CT reviewed and shows Moderate-sized bilateral pleural effusions and patchy bilateral lower lobe. -patient is currently on 3-5 liters of oxygen via N/C IR consulted s/p thoracentesis and follow the fluid studies ABG reassuring -will start on Lasix -Consult to cardiology -2d echo ordered = Marketed elevation of pulmonary pressures on echocardiogram. With bradycardia , however significant hypertensive episode with systolics in the 180s. Will add hydralazine for blood pressure control. Cardiology following. Appreciate assistance. - -The patient is over diuresis with Lasix. DC Lasix. Received gentle IV fluids as patient is more edema. Elevated troponin, troponin .06 -Serial troponin and ekg Third-degree AV block EKG reviewed and findings discussed with cardiology Dr Gaona -Monitor telemetry -Appreciate cardiology input -Hold BB -Cardiology following. -Discussed with Dr. Gaona cardiology. Patient needs to be off Namenda for at least 12 days to wear off, if patient still with third-degree AV block there after patient is a candidate for a ICD. The patient and his family is updated about the plan and they agree to it Transaminitis- due to CHF? Abdominal CT reviewed and shows Bilateral inguinal hernias with multiple loops of small bowel in the right lateral hernia. No dilated loops of small or large bowel, and a 12 mm densely enhancing lesion in the posterior segment of the right lobe of the liver. -Trend LFTs --Avoid hepatotoxins -Protonix IV BID -Consult GI if LFT's trending up. Reported right hip pain after a questionable fall - check XR right hip -negative - Add Tylenol as needed for pain control. Hypertension, currently elevated -Resumed home losartan -Avoid beta blockers = 08/13. Blood pressure is elevated in the 180s. Start on hydralazine scheduled. Likely bradycardia is reactive secondary to hypertension. Dementia - resume home meds Fall consult PT. DVT prophylaxis: Heparin sq Discharge Planning: DC to SNF (PO), pending improvement and pending cardiology clearance Discussed with Dr. Gaona cardiology. Patient needs to be off Namenda for at least 12 days to wear off, if patient still with third-degree AV block there after patient is a candidate for a ICD. The patient and his family is updated about the plan and they agree to it. Kidney function noted getting worse, consult nephrology, ff. Kidney function is improving slowly.
[2018-08-18] MEDS: Pantoprazole Inj 40 MG Vial IV.PUSH SCH ×2 (11:46→22:31)
[2018-08-18] MEDS ORDERED: Ibuprofen 400 MG Tablet PO ONE (13:30)
--- NOTE | 2018-08-18 15:18 | P.PNNP ---
Subjective Interval history: OOB on bedside commode. Family at bedside. Denies any shortness of breath, chest pain, nausea, or vomiting. Per nursing having trouble with constipation. <Ceci Varma - Last Filed: 08/18/18 15:13> Physical Exam Vital signs: Vital Signs 08/17/18 16:00 08/17/18 20:00 08/18/18 00:00 Temperature 97.4 F L 97.5 F L 97.6 F Pulse Rate 42 L 38 L 38 L Respiratory Rate 18 18 18 Blood Pressure 137/93 H 122/55 L 114/76 Pulse Oximetry 94 L 94 L 91 L 08/18/18 04:00 08/18/18 08:00 08/18/18 08:57 Temperature 98 F 97.4 F L Pulse Rate 38 L 39 L Respiratory Rate 18 19 Blood Pressure 170/62 H 149/65 H Pulse Oximetry 93 L 91 L 94 L 08/18/18 09:00 08/18/18 12:00 Temperature 97.9 F Pulse Rate 39 L 38 L Respiratory Rate 18 Blood Pressure 115/55 L Pulse Oximetry 91 L Intake & Output 08/17/18 08/18/18 08/18/18 18:59 06:59 18:59 Intake Total 480 / 480 Output Total 150 / 150 Balance 480 / 480 -150 / -150 Weight 69 kg Intake: Oral 480 / 480 Output: Urine 150 / 150 Other: # Voids 1 1 Date of Last Bowel Movement 08/11/18 Narrative: GENERAL: Patient is a pleasantly confused. Appears comfortable. CARDIOVASCULAR: Bradycardic but regular rhythm without murmurs, gallops, or rubs. RESPIRATORY: Breath sounds equal bilaterally. No accessory muscle use. GASTROINTESTINAL: Abdomen soft, non-tender, nondistended. MUSCULOSKELETAL: No cyanosis, or edema. BACK: Nontender without obvious deformity. No CVA tenderness. <Ceci Varma - Last Filed: 08/18/18 15:13> Vital signs: Vital Signs 08/21/18 00:00 08/21/18 04:00 08/21/18 09:57 Temperature 97.8 F 98.4 F 97.4 F L Pulse Rate 37 L 36 L 68 Respiratory Rate 18 20 22 Blood Pressure 124/63 149/56 H 169/64 H Pulse Oximetry 93 L 94 L 99 08/21/18 10:00 08/21/18 10:52 08/21/18 11:47 Temperature Pulse Rate 68 70 75 Respiratory Rate 22 Blood Pressure 163/70 H Pulse Oximetry 98 08/21/18 13:00 08/21/18 14:00 08/21/18 14:38 Temperature 97.5 F L Pulse Rate 72 72 71 Respiratory Rate 22 Blood Pressure 145/65 H Pulse Oximetry 94 L 08/21/18 15:00 08/21/18 16:00 08/21/18 17:00 Temperature Pulse Rate 72 82 84 Respiratory Rate Blood Pressure Pulse Oximetry 08/21/18 17:07 08/21/18 18:00 Temperature Pulse Rate 83 82 Respiratory Rate 18 Blood Pressure Pulse Oximetry 95 Intake & Output 08/21/18 08/21/18 08/22/18 06:59 18:59 06:59 Intake Total 1220 / 1220 Output Total 550 / 550 300 / 300 Balance -550 / -550 920 / 920 Weight 61 kg Intake: IV 1100 / 1100 NS Inj 1,000 ML @ 80 mls/hr IV. 1000 / 1000 SIG .[id number] TERE Rx#:[id number] Ancef Inj 1,000 MG In NS Inj 100 / 100 100 ML @ 200 mls/hr IV.SIG Q8H TERE Rx#:[id number] Oral 120 / 120 Output: Urine 550 / 550 300 / 300 Other: # Voids 1 <Armando Kruse Q - Last Filed: 08/21/18 21:37> Assessment and Plan - Assessment (1) Acute kidney failure Code(s): N17.9 - Acute kidney failure, unspecified Status: Acute (2) Acute exacerbation of CHF (congestive heart failure) Code(s): I50.9 - Heart failure, unspecified Status: Acute Qualifiers: Heart failure type: unspecified Qualified Code(s): I50.9 - Heart failure, unspecified (3) Elevated troponin Code(s): R74.8 - Abnormal levels of other serum enzymes Status: Acute - Plan Patient develop Acute kidney injury. Most likely has pre renal and possible ATN. Renal ultrasound with mildly echogenic kidneys consistent with medical renal disease. No evidence for obstructive uropathy. Creatinine improving at 1.78 from 1.95 Plan Continue to hold Diuretics Encourage oral intake Avoid nephrotoxins as possible. Follow the urine out put and BMP. <Gellermann,Ceci - Last Filed: 08/18/18 15:13> - Assessment (1) Acute kidney failure Code(s): N17.9 - Acute kidney failure, unspecified Status: Acute (2) Acute exacerbation of CHF (congestive heart failure) Code(s): I50.9 - Heart failure, unspecified Status: Acute Qualifiers: Heart failure type: unspecified Qualified Code(s): I50.9 - Heart failure, unspecified (3) Elevated troponin Code(s): R74.8 - Abnormal levels of other serum enzymes Status: Acute - Plan Patient seen and examined, agree with above.Slightly improve in Creatinine. Diuretic is on hold. <Shelly Kruse - Last Filed: 08/21/18 21:37>
[2018-08-19] MEDS: hydrALAZINE 50 MG Tablet PO SCH ×3 (08:42→17:38)
[2018-08-19] MEDS: Heparin - SQ 10,000 UNITS/ML Vial SQ SCH ×2 (08:42→22:26)
[2018-08-19] MEDS: Sodium Chloride 0.9% 2 ML Flush BID IV.FLUSH SCH ×2 (08:42→22:26)
[2018-08-19 09:04] LABS: Albumin 2.7 g/dL (3.4-5.0); Anion Gap 12 meq/L (5-15); Aspartate Aminotransferase 18 U/L (15-37); Blood Urea Nitrogen 71 mg/dL (7-18); Calcium 9.1 mg/dL (8.5-10.1); Carbon Dioxide 22.1 meq/L (21.0-32.0); Chloride 106 meq/L (98-107); Glomerular Filtration Rate 27 mL/min (>89); Glucose,Random 115 mg/dL (74-106); Potassium 4.2 meq/L (3.5-5.1); Sodium 140 meq/L (136-145)
[2018-08-19 09:06] LABS: Alanine Aminotransferase 31 U/L (10-53)
[2018-08-19 09:09] LABS: Alkaline Phosphatase 108 U/L (45-117); Total Protein 6.4 g/dL (6.4-8.2)
--- NOTE | 2018-08-19 09:29 | P.PN ---
Subjective Interval history: Patient resting comfortably in chair. She just received her pain medication. No acute concerns. No nausea, vomiting, chest pain, SOB, fever, chills. Physical Exam Vital signs: Vital Signs 08/18/18 12:00 08/18/18 16:00 08/18/18 20:00 Temperature 97.9 F 97.1 F L 98.1 F Pulse Rate 38 L 37 L 37 L Respiratory Rate 18 18 20 Blood Pressure 115/55 L 144/58 H 143/56 H Pulse Oximetry 91 L 93 L 96 08/19/18 00:00 08/19/18 04:00 08/19/18 08:00 Temperature 97.8 F 97.5 F L 98.3 F Pulse Rate 36 L 35 L 38 L Respiratory Rate 20 18 16 Blood Pressure 122/61 156/66 H 164/63 H Pulse Oximetry 93 L 94 L 91 L 08/19/18 08:57 Temperature Pulse Rate 37 L Respiratory Rate Blood Pressure Pulse Oximetry Intake & Output 08/18/18 08/19/18 08/19/18 18:59 06:59 18:59 Intake Total 240 / 240 Output Total 450 / 450 450 / 450 Balance -210 / -210 -450 / -450 Weight 57.8 kg Intake: Oral 240 / 240 Output: Urine 450 / 450 450 / 450 Other: # Voids 1 Date of Last Bowel Movement 08/11/18 # Bowel Movements 0 Narrative: GENERAL: Patient is a pleasantly confused 88 year old female. Appears comfortable. CARDIOVASCULAR: Bradycardic but regular rhythm without murmurs, gallops, or rubs. RESPIRATORY: Breath sounds equal bilaterally. No accessory muscle use. GASTROINTESTINAL: Abdomen soft, non-tender, nondistended. MUSCULOSKELETAL: No cyanosis, or edema. BACK: Nontender without obvious deformity. No CVA tenderness. Results - Labs CBC & Chem 7: 08/17/18 05:32 08/19/18 07:32 Laboratory Results - last 24 hr 08/19/18 07:32 Sodium 140 Potassium 4.2 Chloride 106 Carbon Dioxide 22.1 Anion Gap 12 BUN 71 H Creatinine 1.80 H Estimated GFR 27 L Random Glucose 115 H Calcium 9.1 Total Bilirubin 0.6 AST 18 ALT 31 Alkaline Phosphatase 108 Total Protein 6.4 Albumin 2.7 L Assessment and Plan - Assessment (1) Acute exacerbation of CHF (congestive heart failure) Code(s): I50.9 - Heart failure, unspecified Status: Acute (2) Elevated troponin Code(s): R74.8 - Abnormal levels of other serum enzymes Status: Acute (3) Liver mass Code(s): R16.0 - Hepatomegaly, not elsewhere classified Status: Acute (4) Acute kidney failure Code(s): N17.9 - Acute kidney failure, unspecified Status: Acute - Plan New onset CHF, BNP 615. Acute on chronic diastolic heart failure-echo with LVEF 60-65%, Severe TR, Mild MR Mild AR , severe Pulmonary Hypertension Acute on chronic respiratory failure requiring 5L O2 by [place] Abdominal CT reviewed and shows Moderate-sized bilateral pleural effusions and patchy bilateral lower lobe. -patient is currently on 3-5 liters of oxygen via N/C -IR consulted s/p thoracentesis and follow the fluid studies -ABG reassuring -will start on Lasix -Consult to cardiology -2d echo ordered -Marketed elevation of pulmonary pressures on echocardiogram. With bradycardia , however significant hypertensive episode with systolics in the 180s. Hydralazine for blood pressure control. Cardiology following. Appreciate assistance. -The patient is over diuresed with Lasix. -Lasix DCed. Elevated troponin, troponin .06 -Serial troponin and ekg Third-degree AV block EKG reviewed and findings discussed with cardiology Dr Gaona -Monitor telemetry -Appreciate cardiology input -Hold BB -Cardiology following. -Discussed with Dr. Gaona cardiology. Patient needs to be off Namenda for at least 12 days to wear off, if patient still with third-degree AV block there after patient is a candidate for a ICD. The patient and his family is updated about the plan and they agree to it Transaminitis- due to CHF? Abdominal CT reviewed and shows Bilateral inguinal hernias with multiple loops of small bowel in the right lateral hernia. No dilated loops of small or large bowel, and a 12 mm densely enhancing lesion in the posterior segment of the right lobe of the liver. -Trend LFTs --Avoid hepatotoxins -Protonix IV BID -Consult GI if LFT's trending up -LFTs stable on 08/18 Acute Kidney Injury Nephrology has seen and evaluated patient. Most likely has pre renal and possible ATN. Recs: Hold diuretics Follow the urine output and BMP Encourage oral intake Cr improving - 2.14 -> 1.92 -> 1.78 Reported right hip pain after a questionable fall -XR right hip -negative - Add Tylenol as needed for pain control - Tramadol 50 mg Q8 PRN Hypertension, currently elevated -Resumed home losartan -Avoid beta blockers -08/13. Blood pressure is elevated in the 180s. Start on hydralazine scheduled. Likely bradycardia is reactive secondary to hypertension. 08/18- BP controlled Dementia - resume home meds Fall -consult PT. DVT prophylaxis: Heparin sq Discharge Planning: To rehab Code Status: DNR Discharge Planning: D/C planning underway to SNF, pending improvement and cardio clearance (1) Acute exacerbation of CHF (congestive heart failure) Qualifiers: Qualified Code(s): I50.9 - Heart failure, unspecified
[2018-08-19] MEDS: Pantoprazole Inj 40 MG Vial IV.PUSH SCH ×2 (11:55→22:27)
--- NOTE | 2018-08-19 12:40 | P.PNNP ---
Subjective Interval history: Sitting up in chair. Denies any shortness of breath, chest pain, nausea, or vomiting. Reports back pain. Creatinine stable at 1.80. <Ceci Varma - Last Filed: 08/19/18 12:33> Physical Exam Vital signs: Vital Signs 08/18/18 16:00 08/18/18 20:00 08/19/18 00:00 Temperature 97.1 F L 98.1 F 97.8 F Pulse Rate 37 L 37 L 36 L Respiratory Rate 18 20 20 Blood Pressure 144/58 H 143/56 H 122/61 Pulse Oximetry 93 L 96 93 L 08/19/18 04:00 08/19/18 08:00 08/19/18 08:57 Temperature 97.5 F L 98.3 F Pulse Rate 35 L 38 L 37 L Respiratory Rate 18 16 Blood Pressure 156/66 H 164/63 H Pulse Oximetry 94 L 91 L 08/19/18 09:48 Temperature Pulse Rate Respiratory Rate Blood Pressure Pulse Oximetry 91 L Intake & Output 08/18/18 08/19/18 08/19/18 18:59 06:59 18:59 Intake Total 240 / 240 Output Total 450 / 450 450 / 450 Balance -210 / -210 -450 / -450 Weight 57.8 kg Intake: Oral 240 / 240 Output: Urine 450 / 450 450 / 450 Other: # Voids 1 Date of Last Bowel Movement 08/11/18 08/11/18 # Bowel Movements 0 Narrative: GENERAL: Patient is a pleasantly confused. Appears comfortable. CARDIOVASCULAR: Bradycardic but regular rhythm without murmurs, gallops, or rubs. RESPIRATORY: Breath sounds equal bilaterally. No accessory muscle use. GASTROINTESTINAL: Abdomen soft, non-tender, nondistended. MUSCULOSKELETAL: No cyanosis, or edema. BACK: Dressing intact on back. No CVA tenderness. <Ceci Varma - Last Filed: 08/19/18 12:33> Vital signs: Vital Signs 08/21/18 19:00 08/21/18 20:00 08/21/18 21:00 Temperature 98.3 F Pulse Rate 89 88 88 Respiratory Rate 20 Blood Pressure 163/73 H Pulse Oximetry 93 L 08/21/18 22:00 08/21/18 23:00 08/22/18 00:00 Temperature 98.3 F Pulse Rate 90 89 92 H Respiratory Rate 20 Blood Pressure 163/73 H Pulse Oximetry 93 L 08/22/18 01:00 08/22/18 02:00 08/22/18 03:00 Temperature 98.3 F Pulse Rate 92 H 92 H 90 Respiratory Rate 20 Blood Pressure 154/69 H Pulse Oximetry 93 L 08/22/18 04:00 08/22/18 05:00 08/22/18 05:05 Temperature Pulse Rate 90 92 H 98 H Respiratory Rate 24 Blood Pressure Pulse Oximetry 08/22/18 06:00 08/22/18 07:00 08/22/18 08:00 Temperature 97.9 F Pulse Rate 92 H 103 H 103 H Respiratory Rate 32 H Blood Pressure 188/76 H Pulse Oximetry 94 L 08/22/18 09:00 08/22/18 10:00 08/22/18 11:00 Temperature 98.2 F Pulse Rate 103 H 97 H 99 H Respiratory Rate 24 Blood Pressure 149/89 H Pulse Oximetry 96 08/22/18 12:00 08/22/18 13:00 08/22/18 14:00 Temperature Pulse Rate 96 H 90 84 Respiratory Rate Blood Pressure Pulse Oximetry 08/22/18 15:00 08/22/18 15:54 Temperature 98 F Pulse Rate 89 89 Respiratory Rate 26 H Blood Pressure 141/64 H Pulse Oximetry 97 Intake & Output 08/21/18 08/22/18 08/22/18 18:59 06:59 18:59 Intake Total 1220 / 1220 1920 / 1920 600 / 600 Output Total 300 / 300 400 / 400 Balance 920 / 920 1520 / 1520 600 / 600 Weight 60.7 kg Intake: IV 1100 / 1100 1200 / 1200 600 / 600 NS Inj 1,000 ML @ 80 mls/hr IV. 1000 / 1000 1000 / 1000 600 / 600 SIG .[id number] TERE Rx#:[id number] Ancef Inj 1,000 MG In NS Inj 100 / 100 200 / 200 100 ML @ 200 mls/hr IV.SIG Q8H TERE Rx#:[id number] Oral 120 / 120 720 / 720 Output: Urine 300 / 300 400 / 400 Other: # Voids 1 <Shelly Kruse - Last Filed: 08/22/18 18:02> Assessment and Plan - Assessment (1) Acute kidney failure Code(s): N17.9 - Acute kidney failure, unspecified Status: Acute (2) Acute exacerbation of CHF (congestive heart failure) Code(s): I50.9 - Heart failure, unspecified Status: Acute Qualifiers: Heart failure type: unspecified Qualified Code(s): I50.9 - Heart failure, unspecified (3) Elevated troponin Code(s): R74.8 - Abnormal levels of other serum enzymes Status: Acute - Plan Patient develop Acute kidney injury. Most likely has pre renal and possible ATN. Renal ultrasound with mildly echogenic kidneys consistent with medical renal disease. No evidence for obstructive uropathy. Creatinine stable at 1.80 Good urinary output Plan Continue to hold Diuretics Encourage oral intake Avoid nephrotoxins including NSAIDS and IV contrast Follow the urine out put and BMP. From nephrology stand point patient is cleared for discharge will need outpatient followup. <Ceci Varma - Last Filed: 08/19/18 12:33> - Assessment (1) Acute kidney failure Code(s): N17.9 - Acute kidney failure, unspecified Status: Acute (2) Acute exacerbation of CHF (congestive heart failure) Code(s): I50.9 - Heart failure, unspecified Status: Acute Qualifiers: Heart failure type: unspecified Qualified Code(s): I50.9 - Heart failure, unspecified (3) Elevated troponin Code(s): R74.8 - Abnormal levels of other serum enzymes Status: Acute - Plan Patient seen and examine, agree with above. Creatinine is stable at 1.8. Encourage oral intake. If discharge, for out patient follow up. <Shelly rKuse - Last Filed: 08/22/18 18:02>
[2018-08-19] MEDS ORDERED: Bisacodyl 10 MG Supp RECTAL PRN (13:31)
--- NOTE | 2018-08-19 14:30 | P.PN ---
Subjective Interval history: In bed appears more awake and alert. No fever or chills/No n/v/d. With constipation Kidney function with Cr at 1.8 nephro ff as well Sattign well on on NC, no wheezing Physical Exam Vital signs: Vital Signs 08/18/18 16:00 08/18/18 20:00 08/19/18 00:00 Temperature 97.1 F L 98.1 F 97.8 F Pulse Rate 37 L 37 L 36 L Respiratory Rate 18 20 20 Blood Pressure 144/58 H 143/56 H 122/61 Pulse Oximetry 93 L 96 93 L 08/19/18 04:00 08/19/18 08:00 08/19/18 08:57 Temperature 97.5 F L 98.3 F Pulse Rate 35 L 38 L 37 L Respiratory Rate 18 16 Blood Pressure 156/66 H 164/63 H Pulse Oximetry 94 L 91 L 08/19/18 09:48 08/19/18 12:00 Temperature 97.5 F L Pulse Rate 39 L Respiratory Rate 20 Blood Pressure 137/82 Pulse Oximetry 91 L 96 Intake & Output 08/18/18 08/19/18 08/19/18 18:59 06:59 18:59 Intake Total 240 / 240 Output Total 450 / 450 450 / 450 Balance -210 / -210 -450 / -450 Weight 57.8 kg Intake: Oral 240 / 240 Output: Urine 450 / 450 450 / 450 Other: # Voids 1 Date of Last Bowel Movement 08/11/18 08/11/18 # Bowel Movements 0 Narrative: GENERAL: Patient is a pleasantly confused 88 yo F, appears in nad. CARDIOVASCULAR: Bradycardic but regular rhythm without murmurs, gallops, or rubs. RESPIRATORY: Breath sounds equal bilaterally. No accessory muscle use. GASTROINTESTINAL: Abdomen soft, non-tender, nondistended. MUSCULOSKELETAL: No cyanosis, or edema. BACK: Dressing intact on back. No CVA tenderness. Results - Labs CBC & Chem 7: 08/17/18 05:32 08/19/18 07:32 Laboratory Results - last 24 hr 08/19/18 07:32 Sodium 140 Potassium 4.2 Chloride 106 Carbon Dioxide 22.1 Anion Gap 12 BUN 71 H Creatinine 1.80 H Estimated GFR 27 L Random Glucose 115 H Calcium 9.1 Total Bilirubin 0.6 AST 18 ALT 31 Alkaline Phosphatase 108 Total Protein 6.4 Albumin 2.7 L Assessment and Plan - Plan New onset CHF, BNP 615. Acute on chronic diastolic heart failure-echo with LVEF 60-65%, Severe TR, Mild MR Mild AR , severe Pulmonary Hypertension Acute on chronic respiratory failure requiring 5L O2 by [place] Abdominal CT reviewed and shows Moderate-sized bilateral pleural effusions and patchy bilateral lower lobe. -patient is currently on 3-5 liters of oxygen via N/C IR consulted s/p thoracentesis and follow the fluid studies ABG reassuring -will start on Lasix -Consult to cardiology -2d echo ordered = Marketed elevation of pulmonary pressures on echocardiogram. With bradycardia , however significant hypertensive episode with systolics in the 180s. Will add hydralazine for blood pressure control. Cardiology following. Appreciate assistance. - -The patient is over diuresis with Lasix. DC Lasix. Received gentle IV fluids as patient is more edema. Elevated troponin, troponin .06 -Serial troponin and ekg Third-degree AV block EKG reviewed and findings discussed with cardiology Dr Gaona -Monitor telemetry -Appreciate cardiology input -Hold BB -Cardiology following. -Discussed with Dr. Gaona cardiology. Patient needs to be off Namenda for at least 12 days to wear off, if patient still with third-degree AV block there after patient is a candidate for a ICD. The patient and his family is updated about the plan and they agree to it Transaminitis- due to CHF? Abdominal CT reviewed and shows Bilateral inguinal hernias with multiple loops of small bowel in the right lateral hernia. No dilated loops of small or large bowel, and a 12 mm densely enhancing lesion in the posterior segment of the right lobe of the liver. -Trend LFTs --Avoid hepatotoxins -Protonix IV BID -Consult GI if LFT's trending up. Reported right hip pain after a questionable fall - check XR right hip -negative - Add Tylenol as needed for pain control. Hypertension, currently elevated -Resumed home losartan -Avoid beta blockers = 08/13. Blood pressure is elevated in the 180s. Start on hydralazine scheduled. Likely bradycardia is reactive secondary to hypertension. Dementia - resume home meds Fall consult PT. DVT prophylaxis: Heparin sq Discharge Planning: DC to SNF (PO), pending improvement and pending cardiology clearance Discussed with Dr. Gaona cardiology. Patient needs to be off Namenda for at least 12 days to wear off, if patient still with third-degree AV block there after patient is a candidate for a ICD. The patient and his family is updated about the plan and they agree to it. Kidney function noted getting worse, consult nephrology, ff. Kidney function is improving slowly.
[2018-08-19] MEDS: Senna/Docusate Sodium 8.6/50 MG Tablet PO SCH (22:26)
[2018-08-20] MEDS: Senna/Docusate Sodium 8.6/50 MG Tablet PO SCH ×2 (08:48→22:08)
[2018-08-20] MEDS: hydrALAZINE 50 MG Tablet PO SCH ×3 (08:48→18:27)
[2018-08-20] MEDS: Heparin - SQ 10,000 UNITS/ML Vial SQ SCH ×2 (08:49→23:20)
[2018-08-20] MEDS: Sodium Chloride 0.9% 2 ML Flush BID IV.FLUSH SCH ×2 (08:49→22:07)
[2018-08-20 08:57] LABS: Albumin 2.6 g/dL (3.4-5.0); Anion Gap 9 meq/L (5-15); Aspartate Aminotransferase 16 U/L (15-37); Blood Urea Nitrogen 69 mg/dL (7-18); Calcium 8.7 mg/dL (8.5-10.1); Carbon Dioxide 22.7 meq/L (21.0-32.0); Chloride 107 meq/L (98-107); Glomerular Filtration Rate 29 mL/min (>89); Glucose,Random 96 mg/dL (74-106); Potassium 4.2 meq/L (3.5-5.1); Sodium 139 meq/L (136-145)
[2018-08-20 08:58] LABS: Alanine Aminotransferase 26 U/L (10-53)
[2018-08-20 09:01] LABS: Alkaline Phosphatase 103 U/L (45-117)
[2018-08-20] MEDS: Pantoprazole Inj 40 MG Vial IV.PUSH SCH ×2 (10:20→22:08)
--- NOTE | 2018-08-20 10:37 | P.PN ---
Subjective Interval history: Patient is sitting in chair eating breakfast. Has some back pain still but just recently took her last dose of ultram. Denies nausea, vomiting, fever, chills, chest pain, SOB. Physical Exam Vital signs: Vital Signs 08/19/18 12:00 08/19/18 16:00 08/19/18 20:00 Temperature 97.5 F L 97.6 F 97.2 F L Pulse Rate 39 L 36 L 37 L Respiratory Rate 20 20 20 Blood Pressure 137/82 125/67 131/62 Pulse Oximetry 96 95 94 L 08/20/18 00:00 08/20/18 04:00 08/20/18 04:57 Temperature 97.4 F L 97.2 F L Pulse Rate 35 L 34 L 35 L Respiratory Rate 16 17 Blood Pressure 125/66 136/62 Pulse Oximetry 92 L 95 08/20/18 08:00 Temperature 98.0 F Pulse Rate 36 L Respiratory Rate 16 Blood Pressure 128/56 L Pulse Oximetry 94 L Intake & Output 08/19/18 08/20/18 08/20/18 18:59 06:59 18:59 Output Total 450 / 450 Balance -450 / -450 Weight 57.2 kg Output: Urine 450 / 450 Other: Date of Last Bowel Movement 08/11/18 Narrative: GENERAL: Patient is a pleasantly confused 88 yo female. NAD CARDIOVASCULAR: Bradycardic but regular rhythm without murmurs, gallops, or rubs. RESPIRATORY: Breath sounds equal bilaterally. No accessory muscle use. GASTROINTESTINAL: Abdomen soft, non-tender, nondistended. MUSCULOSKELETAL: No cyanosis, or edema. BACK: Dressing intact on back. No CVA tenderness. Results - Labs CBC & Chem 7: 08/17/18 05:32 08/20/18 07:01 Laboratory Results - last 24 hr 08/20/18 07:01 Sodium 139 Potassium 4.2 Chloride 107 Carbon Dioxide 22.7 Anion Gap 9 BUN 69 H Creatinine 1.69 H Estimated GFR 29 L Random Glucose 96 Calcium 8.7 Total Bilirubin 0.4 AST 16 ALT 26 Alkaline Phosphatase 103 Total Protein 6.0 L Albumin 2.6 L Assessment and Plan - Assessment (1) Acute exacerbation of CHF (congestive heart failure) Code(s): I50.9 - Heart failure, unspecified Status: Acute (2) Elevated troponin Code(s): R74.8 - Abnormal levels of other serum enzymes Status: Acute (3) Liver mass Code(s): R16.0 - Hepatomegaly, not elsewhere classified Status: Acute (4) Acute kidney failure Code(s): N17.9 - Acute kidney failure, unspecified Status: Acute - Plan New onset CHF, BNP 615. Acute on chronic diastolic heart failure-echo with LVEF 60-65%, Severe TR, Mild MR Mild AR , severe Pulmonary Hypertension Acute on chronic respiratory failure requiring 5L O2 by ID Abdominal CT reviewed and shows Moderate-sized bilateral pleural effusions and patchy bilateral lower lobe. -patient is currently on 3-5 liters of oxygen via N/C -IR consulted s/p thoracentesis and follow the fluid studies -ABG reassuring -will start on Lasix -Consult to cardiology -2d echo ordered -Marketed elevation of pulmonary pressures on echocardiogram. With bradycardia , however significant hypertensive episode with systolics in the 180s. Hydralazine for blood pressure control. Cardiology following. Appreciate assistance. -The patient is over diuresed with Lasix. -Lasix DCed. Elevated troponin, troponin .06 -Serial troponin and ekg Third-degree AV block EKG reviewed and findings discussed with cardiology Dr Gaona -Monitor telemetry -Appreciate cardiology input -Hold BB -Cardiology following. -Discussed with Dr. Gaona cardiology. Patient needs to be off Namenda for at least 12 days to wear off, if patient still with third-degree AV block there after patient is a candidate for a ICD. The patient and his family is updated about the plan and they agree to it. - pacemaker will be put in place tomorrow Transaminitis- due to CHF? Abdominal CT reviewed and shows Bilateral inguinal hernias with multiple loops of small bowel in the right lateral hernia. No dilated loops of small or large bowel, and a 12 mm densely enhancing lesion in the posterior segment of the right lobe of the liver. -Trend LFTs --Avoid hepatotoxins -Protonix IV BID -Consult GI if LFT's trending up -LFTs stable on 08/18 Acute Kidney Injury Nephrology has seen and evaluated patient. Most likely has pre renal and possible ATN. Recs: Hold diuretics Follow the urine output and BMP Encourage oral intake Cr improving - 2.14 -> 1.92 -> 1.78 Cleared from a nephro standpoint on 08/20, f/u outpt. Reported right hip pain after a questionable fall -XR right hip -negative - Add Tylenol as needed for pain control - Tramadol 50 mg Q8 PRN Hypertension, currently elevated -Resumed home losartan -Avoid beta blockers -08/13. Blood pressure is elevated in the 180s. Start on hydralazine scheduled. Likely bradycardia is reactive secondary to hypertension. 08/18- BP controlled Dementia - resume home meds Fall -consult PT. DVT prophylaxis: Heparin sq Discharge Planning: To rehab Discussed Condition With: Patient's family Discharge Planning: D/C planning underway to SNF, patient awaiting pacemaker implantation (1) Acute exacerbation of CHF (congestive heart failure) Qualifiers: Qualified Code(s): I50.9 - Heart failure, unspecified
--- NOTE | 2018-08-20 11:06 | P.PNNP ---
Subjective Interval history: Sitting up in bed. Continues to have back discomfort. Creatinine improving at 1.69 today. <Ceci Varma - Last Filed: 08/20/18 11:03> Physical Exam Vital signs: Vital Signs 08/19/18 12:00 08/19/18 16:00 08/19/18 20:00 Temperature 97.5 F L 97.6 F 97.2 F L Pulse Rate 39 L 36 L 37 L Respiratory Rate 20 20 20 Blood Pressure 137/82 125/67 131/62 Pulse Oximetry 96 95 94 L 08/20/18 00:00 08/20/18 04:00 08/20/18 04:57 Temperature 97.4 F L 97.2 F L Pulse Rate 35 L 34 L 35 L Respiratory Rate 16 17 Blood Pressure 125/66 136/62 Pulse Oximetry 92 L 95 08/20/18 08:00 Temperature 98.0 F Pulse Rate 36 L Respiratory Rate 16 Blood Pressure 128/56 L Pulse Oximetry 94 L Intake & Output 08/19/18 08/20/18 08/20/18 18:59 06:59 18:59 Output Total 450 / 450 Balance -450 / -450 Weight 57.2 kg Output: Urine 450 / 450 Other: Date of Last Bowel Movement 08/11/18 Narrative: GENERAL: Patient is a pleasantly confused. NAD CARDIOVASCULAR: Bradycardic but regular rhythm without murmurs, gallops, or rubs. RESPIRATORY: Breath sounds equal bilaterally. No accessory muscle use. GASTROINTESTINAL: Abdomen soft, non-tender, nondistended. MUSCULOSKELETAL: No cyanosis, or edema. BACK: Dressing intact on back. No CVA tenderness. <Ceci Varma - Last Filed: 08/20/18 11:03> Vital signs: Intake & Output 08/24/18 08/25/18 08/25/18 18:59 06:59 18:59 Other: Date of Last Bowel Movement 08/24/18 <Shelly Kruse - Last Filed: 08/25/18 17:07> Assessment and Plan - Assessment (1) Acute kidney failure Code(s): N17.9 - Acute kidney failure, unspecified Status: Acute (2) Acute exacerbation of CHF (congestive heart failure) Code(s): I50.9 - Heart failure, unspecified Status: Acute Qualifiers: Heart failure type: unspecified Qualified Code(s): I50.9 - Heart failure, unspecified (3) Elevated troponin Code(s): R74.8 - Abnormal levels of other serum enzymes Status: Acute - Plan Patient develop Acute kidney injury. Most likely has pre renal and possible ATN. Renal ultrasound with mildly echogenic kidneys consistent with medical renal disease. No evidence for obstructive uropathy. Creatinine continues to improve at 1.69 Good urinary output Plan Continue to hold Diuretics Encourage oral intake Avoid nephrotoxins including NSAIDS and IV contrast Follow the urine out put and BMP. From nephrology stand point patient is cleared for discharge will need outpatient followup. <Ceci Varma - Last Filed: 08/20/18 11:03> - Assessment (1) Acute kidney failure Code(s): N17.9 - Acute kidney failure, unspecified Status: Acute (2) Acute exacerbation of CHF (congestive heart failure) Code(s): I50.9 - Heart failure, unspecified Status: Acute Qualifiers: Heart failure type: unspecified Qualified Code(s): I50.9 - Heart failure, unspecified (3) Elevated troponin Code(s): R74.8 - Abnormal levels of other serum enzymes Status: Acute - Plan Patient seen an examined, agree with above. Creatinine continue to improve, Diuretics on hold, follow the urine out put and BMP. <Shelly Kruse - Last Filed: 08/25/18 17:07>
--- NOTE | 2018-08-20 16:44 | P.PN ---
Subjective Interval history: The patient is in bed she appears in not acute distress at this time she complained earlier of some back pain. She is more awake and alert. Eating better. No nausea or vomiting. No chest pain or shortness of breath. No lightheadedness. However she is very weak. CT in the chair at times. Physical Exam Vital signs: Vital Signs 08/19/18 20:00 08/20/18 00:00 08/20/18 04:00 Temperature 97.2 F L 97.4 F L 97.2 F L Pulse Rate 37 L 35 L 34 L Respiratory Rate 20 16 17 Blood Pressure 131/62 125/66 136/62 Pulse Oximetry 94 L 92 L 95 08/20/18 04:57 08/20/18 08:00 08/20/18 12:00 Temperature 98.0 F 97.9 F Pulse Rate 35 L 36 L 36 L Respiratory Rate 16 18 Blood Pressure 128/56 L 143/61 H Pulse Oximetry 94 L 97 Intake & Output 08/19/18 08/20/18 08/20/18 18:59 06:59 18:59 Output Total 450 / 450 Balance -450 / -450 Weight 57.2 kg Output: Urine 450 / 450 Other: Date of Last Bowel Movement 08/11/18 08/20/18 # Bowel Movements 1 Narrative: GENERAL: Patient is a pleasantly confused 88 yo female. NAD CARDIOVASCULAR: Bradycardic but regular rhythm without murmurs, gallops, or rubs. RESPIRATORY: Breath sounds equal bilaterally. No accessory muscle use. GASTROINTESTINAL: Abdomen soft, non-tender, nondistended. MUSCULOSKELETAL: No cyanosis, or edema. BACK: Dressing intact on back. No CVA tenderness. Results - Labs CBC & Chem 7: 08/17/18 05:32 08/20/18 07:01 Laboratory Results - last 24 hr 08/20/18 07:01 Sodium 139 Potassium 4.2 Chloride 107 Carbon Dioxide 22.7 Anion Gap 9 BUN 69 H Creatinine 1.69 H Estimated GFR 29 L Random Glucose 96 Calcium 8.7 Total Bilirubin 0.4 AST 16 ALT 26 Alkaline Phosphatase 103 Total Protein 6.0 L Albumin 2.6 L Assessment and Plan - Plan New onset CHF, BNP 615. Acute on chronic diastolic heart failure-echo with LVEF 60-65%, Severe TR, Mild MR Mild AR , severe Pulmonary Hypertension Acute on chronic respiratory failure requiring 5L O2 by [place] Abdominal CT reviewed and shows Moderate-sized bilateral pleural effusions and patchy bilateral lower lobe. -patient is currently on 3-5 liters of oxygen via N/C IR consulted s/p thoracentesis and follow the fluid studies ABG reassuring -will start on Lasix -Consult to cardiology -2d echo ordered = Marketed elevation of pulmonary pressures on echocardiogram. With bradycardia , however significant hypertensive episode with systolics in the 180s. Will add hydralazine for blood pressure control. Cardiology following. Appreciate assistance. - -The patient is over diuresis with Lasix. DC Lasix. Received gentle IV fluids as patient is more edema. Elevated troponin, troponin .06 -Serial troponin and ekg Third-degree AV block EKG reviewed and findings discussed with cardiology Dr Gaona -Monitor telemetry -Appreciate cardiology input -Hold BB -Cardiology following. -Discussed with Dr. Gaona cardiology. Patient needs to be off Namenda for at least 12 days to wear off, if patient still with third-degree AV block there after patient is a candidate for a ICD. The patient and his family is updated about the plan and they agree to it Transaminitis- due to CHF? Abdominal CT reviewed and shows Bilateral inguinal hernias with multiple loops of small bowel in the right lateral hernia. No dilated loops of small or large bowel, and a 12 mm densely enhancing lesion in the posterior segment of the right lobe of the liver. -Trend LFTs --Avoid hepatotoxins -Protonix IV BID -Consult GI if LFT's trending up. Reported right hip pain after a questionable fall - check XR right hip -negative - Add Tylenol as needed for pain control. Hypertension, currently elevated -Resumed home losartan -Avoid beta blockers = 08/13. Blood pressure is elevated in the 180s. Start on hydralazine scheduled. Likely bradycardia is reactive secondary to hypertension. Dementia - resume home meds Fall consult PT. DVT prophylaxis: Heparin sq Discharge Planning: DC to SNF (PO), pending improvement and pending cardiology clearance Discussed with Dr. Gaona cardiology. Patient needs to be off Namenda for at least 12 days to wear off, if patient still with third-degree AV block there after patient is a candidate for a ICD. The patient and his family is updated about the plan and they agree to it. Kidney function noted getting worse and nephrology was consulted, ff. Kidney function is improving slowly.
--- NOTE | 2018-08-20 17:54 | P.PNCA ---
Subjective Interval history: "I'm feeling ok" Medications and Allergies Allergies Allergy/AdvReac Type Severity Reaction Status Date / Time No Known Allergies Allergy Uncoded 05/14/17 17:16 Home Medications Medication Instructions Recorded Confirmed Type aspirin [Aspirin Low Dose] 81 mg PO DAILY 08/11/18 08/11/18 History losartan 50 mg PO DAILY 08/11/18 08/11/18 History memantine [Namenda] 10 mg PO BID 08/11/18 08/11/18 History simvastatin 10 mg PO QPM 08/11/18 08/11/18 History Active Medications: Active Medications Al Hydroxide/Mg Hydroxide (Milk Of Magnesia Liq) 30 ml PO Q12H PRN PRN Reason: Mild Constipation Albuterol (Albuterol Neb (Prn)) 1.25 mg NEB Q4HR NEB PRN PRN Reason: sob Bisacodyl (Dulcolax Supp) 10 mg RECTAL DAILY PRN PRN Reason: SEVERE CONSITIPATION Enalaprilat (Vasotec Inj) 1.25 mg IV.PUSH Q8H PRN PRN Reason: SBP > 180 or DBP >100 Last Admin: 08/12/18 09:32 Dose: 1.25 mg Heparin Sodium (Porcine) (Heparin Inj) 5,000 units SQ Q12H [facility] Last Admin: 08/20/18 08:49 Dose: 5,000 units Hydralazine HCl (Apresoline) 50 mg PO TID [facility] Last Admin: 08/20/18 08:48 Dose: 50 mg Lactulose (Lactulose Liq) 30 ml PO DAILY PRN PRN Reason: SEVERE CONSITIPATION Last Admin: 08/20/18 10:15 Dose: 30 ml Losartan Potassium (Cozaar) 50 mg PO HS [facility] Last Admin: 08/19/18 22:26 Dose: 50 mg Ondansetron HCl (Zofran Inj) 4 mg IV.PUSH Q6H PRN PRN Reason: NAUSEA OR VOMITING Pantoprazole Sodium (Protonix Inj) 40 mg IV.PUSH Q12H [facility] Last Admin: 08/20/18 10:20 Dose: 40 mg Senna/Docusate Sodium (Carolyn-Colace) 1 tab PO BID [facility] Last Admin: 08/20/18 08:48 Dose: 1 tab Sennosides (Senokot) 17.2 mg PO Q12H PRN PRN Reason: Moderate Constipation Sodium Chloride (Ns Flush) 2 ml IV.FLUSH BID TERE Last Admin: 08/20/18 08:49 Dose: 2 ml Sodium Chloride (Ns Flush) 2 ml IV.FLUSH PRN PRN PRN Reason: FLUSH AFTER USING IV ACCESS Tramadol HCl (Ultram) 50 mg PO Q8H PRN PRN Reason: PAIN SCALE 1 TO 10 Last Admin: 08/20/18 08:48 Dose: 50 mg Physical Exam Vital signs: Vital Signs 08/19/18 20:00 08/20/18 00:00 08/20/18 04:00 Temperature 97.2 F L 97.4 F L 97.2 F L Pulse Rate 37 L 35 L 34 L Respiratory Rate 20 16 17 Blood Pressure 131/62 125/66 136/62 Pulse Oximetry 94 L 92 L 95 08/20/18 04:57 08/20/18 08:00 08/20/18 12:00 Temperature 98.0 F 97.9 F Pulse Rate 35 L 36 L 36 L Respiratory Rate 16 18 Blood Pressure 128/56 L 143/61 H Pulse Oximetry 94 L 97 Intake & Output 08/19/18 08/20/18 08/20/18 18:59 06:59 18:59 Output Total 450 / 450 Balance -450 / -450 Weight 57.2 kg Output: Urine 450 / 450 Other: Date of Last Bowel Movement 08/11/18 08/20/18 # Bowel Movements 1 - Constitutional no acute distress, obese - Routine HEENT Exam Head: Present: normocephalic, atraumatic ENT: Present: mucous membranes moist - Routine Neck Exam Present: supple. Absent: JVD - Routine Respiratory Exam Present: decreased breath sounds - Routine Cardiovascular Exam Present: S1, S2, bradycardia - Routine Extremities Exam Present: pulses intact, normal capillary refill. Absent: edema - Routine Skin Exam Present: intact - Routine Neurological Exam Present: normal speech Results 08/17/18 05:32 08/20/18 07:01 Cardiac Enzymes 08/19/18 08/20/18 Range/Units 07:32 07:01 AST 18 16 (15-37) U/L Comprehensive Metabolic Panel 08/19/18 08/20/18 Range/Units 07:32 07:01 Sodium 140 139 (136-145) meq/L Potassium 4.2 4.2 (3.5-5.1) meq/L Chloride 106 107 (98-107) meq/L Carbon Dioxide 22.1 22.7 (21.0-32.0) meq/L BUN 71 H 69 H (7-18) mg/dL Creatinine 1.80 H 1.69 H (0.50-1.00) mg/dL Calcium 9.1 8.7 (8.5-10.1) mg/dL AST 18 16 (15-37) U/L ALT 31 26 (10-53) U/L Alkaline Phosphatase 108 103 (45-117) U/L Total Protein 6.4 6.0 L (6.4-8.2) g/dL Albumin 2.7 L 2.6 L (3.4-5.0) g/dL Intake and Output 08/20/18 08/20/18 08/20/18 06:59 14:59 22:59 Other: Date of Last Bowel Movement 08/20/18 # Bowel Movements 1 Weight 57.2 kg Assessment and Plan - Plan 1. Acute diastolic heart failure-echo with LVEF 60-65%, Severe TR, Mild MR Mild AR , severe Pulmonary Hypertension Improved. 2. COMPLETE HEART BLOCK For permanent PM in AM. All risks ( bleeding ,infection ,blood clots, pneumothorax and chest tube placement, respiratoy failure, cardiac rupture and tamponade, etc. were fully explained and benefit explained and pt. and son are agreable and want to proceed. 3. Hypertension-on losartan and hydralazine Discussed Condition With: son Mya who is at bedside
[2018-08-20] MEDS: Sod Chloride 0.9% Inj 1,000 ML IV.SIG SCH (22:08)
[2018-08-21 06:35] LABS: Calcium 8.4 mg/dL (8.5-10.1); Carbon Dioxide 22.6 meq/L (21.0-32.0); Potassium 4.1 meq/L (3.5-5.1)
[2018-08-21] MEDS ORDERED: fentaNYL Citrate Inj 100 MCG/2 ML Ampul ONE (07:27)
--- NOTE | 2018-08-21 09:37 | CATHPROC ---
FSI HIS Report Study Information Study Number Admission Scheduled Start Study Start [id number] Aug 12 2018 9:26AM 08/21/2018 Aug 21 2018 6:42AM [facility] Service Cardiac Catheterization Admit Source Facility Department Emergency department [facility] - Parliamentary Archivist Physician and Clinical Staff Initial MD Winkler, Dae Calendar Control Clerk Blood Bank Caroline Nj,SHAZIA Other Erick Smith RCIS(BS) Recorder Chaparrita Caba,RT(R) Scrub Brad, Carrie,FINANCE INTERN TECH2 Procedures Performed Procedure Lead Insertion Lead Revision Equipment Time Medical Case Worker Description Size Mfg Part Number Used/Scraped 08:13 BIOTRONIK LEAD, SOLIA 60 53 PRO MRI * [id number] Used 08:47 BIOTRONIK LEAD, SOLIA S PRO MRI * [id number] Used PACEMAKER, ENDORA 8 DR-T PRO 08:48 BIOTRONIK DDDR [id number] Used MRI [id number] 06:44 MEDLINE Atlas Spine BLANKET,WARM AIR CCL * Used *[id number] 06:44 Palringo SUTURE, STRIP PLUS 1/2" * Used *[id number] 06:44 MEDLINE PACER ADHESIVE, MASTISOL 2/3CC 2/3CC 0523-48 Used 06:44 MEDLINE PACER OHARA, LIMB * 2530 *[id number] Used [id number] 06:44 MEDLINE PACER PACK, PACER CUSTOM * Used *[id number] 06:44 MEDLINE PACER PEN, SKIN DUAL W/ RULER * Used *[id number] 08:15 [employer] MEDICAL PACER SAFE SHEATH, FR6, 13CM FR 6 CLS-1006 Used 08:15 [employer] MEDICAL PACER SAFE SHEATH, FR6, 13CM FR 6 CLS-1006 Used 08:00 Needle Sponge Count 2 22 Used 08:00 Needle Sponge Count 20 200 Used 09:17 Needle Sponge Count 29 1 Used 08:00 Needle Sponge Count 30 1 Used 08:00 Needle Sponge Count 4 4 Used SUTURE, 3-0 VICRYL [CT-1] ([id number]) SUTURE, 3-0 VICRYL [CT-1] ([id number]) SUTURE, 4-0 VICRYL [PS2] ([id number]) Equipment Model, Serial, Lot Number and Expiration Data Description Model Number Serial Number Lot Number Expiration Date LEAD, SOLIA 60 53 PRO MRI [id number] 02-02-2020 LEAD, SOLIA S PRO MRI [id number] 06-03-2020 PACEMAKER, ENDORA 8 DR-T PRO [id number] 12-04-2019 MRI History: Allergies Allergy Reaction No Known Allergies History: Risk Factors Hypertension Yes Medication Medication Total Dose (Bolus/Oral) Medication Total Dosage/Unit 2% XYLOCAINE 50 mL FENTANYL 100 mcg VERSED 6 mg Medications (Bolus/Oral) Medication Time Given Dosage/Unit Administered By Reason VERSED 08/21/2018 7:36:52 AM 1 mg Hesher, Caroline 1 mg VERSED given in lab by Caroline Nj RN in Left Antecubital via Peripheral IV. Ordered by Dae Winchester. FENTANYL 08/21/2018 7:37:20 AM 25 mcg Hesher, Caroline 25 mcg FENTANYL given in lab by Caroline Nj RN in Left Antecubital via Peripheral IV. Ordered by Dae Winkler. VERSED 08/21/2018 7:50:07 AM 1 mg Hesher, Caroline 1 mg VERSED given in lab by Caroline Nj RN in Left Antecubital via Peripheral IV. Ordered by Dae Winchester. FENTANYL 08/21/2018 7:51:11 AM 25 mcg Hesher, Caroline 25 mcg FENTANYL given in lab by Caroline Nj RN in Left Antecubital via Peripheral IV. Ordered by Dae Winkler. VERSED 08/21/2018 8:02:43 AM 1 mg Hesher, Caroline 1 mg VERSED given in lab by Caroline Nj RN in Left Antecubital via Peripheral IV. Ordered by Dae Winchester. 2% XYLOCAINE 08/21/2018 8:03:10 AM 50 mL Hesher, Caroline 50 mL 2% XYLOCAINE given in lab by Caroline Nj RN via left chest Subcutaneous. Ordered by Dae Winkler. FENTANYL 08/21/2018 8:03:35 AM 25 mcg Hesher, Caroline 25 mcg FENTANYL given in lab by Caroline Nj RN in Left Antecubital via Peripheral IV. Ordered by Dae Winkler. VERSED 08/21/2018 8:09:00 AM 1 mg Hesher, Caroline 1 mg VERSED given in lab by Caroline Nj RN in Left Antecubital via Peripheral IV. Ordered by Dae Winchester. FENTANYL 08/21/2018 8:10:56 AM 25 mcg Ondina, Caroline 25 mcg FENTANYL given in lab by Caroline Nj RN in Left Antecubital via Peripheral IV. Ordered by Dae Winkler. VERSED 08/21/2018 8:32:16 AM 0.5 mg Hesher, Caroline 0.5 mg VERSED given in lab by Caroline Nj RN in Left Antecubital via Peripheral IV. Ordered by Dae Frias. VERSED 08/21/2018 8:43:48 AM 0.5 mg Hesher, Caroline 0.5 mg VERSED given in lab by Caroline Nj RN in Left Antecubital via Peripheral IV. Ordered by aDe Frias. VERSED 08/21/2018 8:57:56 AM 0.5 mg Hesher, Caroline 0.5 mg VERSED given in lab by Caroline Nj RN in Left Antecubital via Peripheral IV. Ordered by Dae Frias. VERSED 08/21/2018 9:15:05 AM 0.5 mg Hesher, Caroline 0.5 mg VERSED given in lab by Caroline Nj RN in Left Antecubital via Peripheral IV. Ordered by Dae Frias. Medication (Drip) Medication Time Given Dosage/Unit Concentration/Unit Diluent (ml) Solution ANCEF 08/21/2018 7:35:22 AM 2 g 2 g ANCEF given in lab by Caroline Nj RN in Left Antecubital via Peripheral IV. IV Solutions 08/21/2018 7:18:53 AM 50 mL (IV) NaCl .9 IV Solutions given in lab by Caroline Nj RN in Left Antecubital via Peripheral IV. Pump/Drip Flow using NaCl .9. VANCOMYCIN DRIP 08/21/2018 7:34:02 AM 1 g 1 g VANCOMYCIN DRIP given in lab by Caroline Nj RN in Left Antecubital via Peripheral IV. Chronological Log Time Study Chronological Log 7:08:19 Patient arrived via Bed. 7:18:23 Patient Name, D.O.B, / Armband Verified By R.N. 7:18:23 Consent signed by the physician and the patient and verified by the Parliamentary Archivist staff. 7:18:25 Pre-op and post- op instructions given; patient acknowledges understanding of instructions . 7:18:26 Presedation assessment performed by Parliamentary Archivist RN. 7:18:28 Patient has been NPO for More than 6Hrs. 7:18:34 Skin Breakdown- bandage on left upper back 7:18:46 Patient Warmer Placed on the Table. 7:18:47 Disposable Defibrillator Pads Placed On Patient. 7:18:47 Wilda Prominences Protected 7:18:50 A # 20 IV was noted in the Forearm (right). Grade = 0 7:18:50 A # 20 IV was noted in the Antecubital (left). Grade = 0 7:18:53 IV Solutions given in lab by Caroline Nj RN in Left Antecubital via Peripheral IV. Pum p/Drip Flow using NaCl .9. 7:18:54 History and physical on the chart or being dictated. 7:20:50 Bovie ground pad applied to: 7:30:42 Right and Left Upper Chest Prepped Times Two. Vitals capture started with the following parameters, Patient=Adult, Interval=5 min, Initial Iqgdjtnf=060 mmHg, 7:32:38 Deflation Rate=5 mmHg, Cuff placed on Right Arm 7:33:23 HR=37 bpm, BMFA=278/65 mmhg, SpO2=94 %, Resp=13 B/min 7:34:02 1 g VANCOMYCIN DRIP given in lab by Caroline Nj RN in Left Antecubital via Peripheral IV. 7:34:10 Reference ECG taken First Sponge And Instrument Count Done by Erick Smith RCIS(BS). 7:35:13 Hypo's: 4, Sponges: 30, Bovie/scratch: 2 Sutures: 5, Blades: 3, Instruments: 26, Syveck Patches: ~SYVECK PATCH~ 7:35:22 2 g ANCEF given in lab by Caroline Nj RN in Left Antecubital via Peripheral IV. 7:36:52 1 mg VERSED given in lab by Caroline Nj RN in Left Antecubital via Peripheral IV. Orde red by Dae Winkler. 7:37:20 25 mcg FENTANYL given in lab by Caroline Nj RN in Left Antecubital via Peripheral IV. Ordered by Dae Winkler. 7:38:18 HR=55 bpm, HXUF=709/65 mmhg, SpO2=94.0 % 7:41:38 MD paged 7:43:13 HR=37 bpm, NMID=352/95 mmhg, SpO2=98.0 %, Resp=18 B/min 7:48:22 HR=34 bpm, NIBP=97/35 mmhg, SpO2=96.0 % 7:50:07 1 mg VERSED given in lab by Caroline Nj RN in Left Antecubital via Peripheral IV. Ordere d by Dae Winkler. 7:51:11 25 mcg FENTANYL given in lab by Caroline Nj RN in Left Antecubital via Peripheral IV. Or dered by Dae Winkler. 7:53:50 HR=38 bpm, BQTH=234/49 mmhg, SpO2=96.0 % 7:57:11 MD arrived. 7:58:18 HR=38 bpm, XRIZ=400/52 mmhg, SpO2=95.0 %, Resp=15 B/min Time Out. Correct patient, procedure, procedure equipment, site and side verified with physician present. Time 8:01:05 concurred by MD and individual staff. 8:02:43 1 mg VERSED given in lab by Caroline Nj RN in Left Antecubital via Peripheral IV. Ordere d by Dae Winkler. Time Out #2 - Consents verified, patient in correct position, all results are labled and display ed, safety precautions 8:02:56 taken, antibiotics administered. Time out concurred by MD, individual staff and LABORER RAGS in procedur e 8:03:09 Case Start 8:03:10 50 mL 2% XYLOCAINE given in lab by Caroline Nj, SHAZIA via left chest Subcutaneous. Ordered b y Dae Winkler. 8:03:35 25 mcg FENTANYL given in lab by Caroline Nj RN in Left Antecubital via Peripheral IV. Or dered by Dae Winkler. 8:04:39 HR=35 bpm, ITUQ=578/50 mmhg, SpO2=97.0 %, Resp=18 B/min 8:06:20 Vascular access was obtained in the Subclav. Vein (Lft. 8:06:29 Wire inserted 8:06:35 Surgical Incision Made. 8:08:14 HR=40 bpm, LUBQ=851/54 mmhg, SpO2=98.0 % 8:09:00 1 mg VERSED given in lab by Caroline Nj, SHAZIA in Left Antecubital via Peripheral IV. Ordere d by Dae Winkler. 8:10:56 25 mcg FENTANYL given in lab by Caroline Nj, RN in Left Antecubital via Peripheral IV. Or dered by Dae Winkler. 8:12:29 Scond Vascular access was obtained in the Subclav. Vein (Lft. 8:13:05 HR=29 bpm, VPAL=353/89 mmhg, SpO2=92.0 % 8:14:30 Two antibiotic sponges put into the surgical pocket. 8:14:52 A SAFE SHEATH, FR6, 13CM FR 6 was advanced into the Subclav. Vein (Lft using the Percutaneou s technique. 8:15:48 A LEAD, SOLIA 60 53 PRO MRI * was inserted and positioned in the RV. 8:17:57 The RV lead impedance and threshold being tested. 8:19:48 Vitals capture stopped. Vitals capture started with the following parameters, Patient=Adult, Interval=5 min, Initial Pre ryxie=619 mmHg, 8:20:27 Deflation Rate=5 mmHg, Cuff placed on Right Arm 8:20:46 The RV Lead Was Revised. 8:21:57 HR=31 bpm, HSPD=567/42 mmhg, SpO2=97.0 % 8:22:05 The RV lead impedance and threshold being tested. 8:26:01 HR=0 bpm, NIBP=94/44 mmhg, SpO2=97.0 % 8:30:58 HR=49 bpm, NIBP=98/40 mmhg, SpO2=97.0 % 8:32:16 0.5 mg VERSED given in lab by Caroline Nj, SHAZIA in Left Antecubital via Peripheral IV. Orde red by Dae Winkler. 8:34:55 Lead placement verified under fluoroscopy 8:35:59 HR=49 bpm, VBIB=823/40 mmhg, SpO2=97.0 %, Resp=13 B/min 8:37:12 The RV lead was sutured to the fascia. 8:40:38 A implantable was inserted and positioned in the RA. 8:41:00 HR=50 bpm, NIBP=97/43 mmhg, SpO2=99.0 % 8:43:48 0.5 mg VERSED given in lab by Caroline Nj RN in Left Antecubital via Peripheral IV. Orde red by Dae Winkler. 8:45:59 HR=56 bpm, NIBP=98/40 mmhg, SpO2=97.0 % 8:46:34 Lead placement verified under fluoroscopy 8:46:38 The Atrial lead impedance and threshold is being tested. 8:51:00 HR=60 bpm, KTYK=506/42 mmhg, SpO2=98.0 % 8:53:18 The Atrial lead was sutured to the fascia. 8:55:50 A PACEMAKER, ENDORA 8 DR-T PRO MRI DDDR was connected and placed in the pocket. 8:55:53 Antibiotic sponges removed from the surgical pocket. 8:56:01 HR=60 bpm, PSYK=591/49 mmhg, SpO2=98.0 % 8:56:37 Pocket flushed with antibiotic solution 8:57:56 0.5 mg VERSED given in lab by Caroline Nj RN in Left Antecubital via Peripheral IV. Orde red by Dae Winkler. 9:01:05 HR=68 bpm, NIBP=98/42 mmhg, SpO2=98.0 % 9:05:47 The RA Lead Was Revised. 9:06:01 The Atrial lead impedance and threshold is being tested. 9:06:02 HR=60 bpm, FYBU=137/44 mmhg, SpO2=98.0 % 9:07:53 Lead placement verified under fluoroscopy 9:08:47 The Atrial lead was sutured to the fascia. 9:11:05 HR=60 bpm, PBUI=324/46 mmhg, SpO2=99.0 % 9:13:12 Pocket flushed with antibiotic solution 9:13:16 The pocket was closed. 9:15:05 0.5 mg VERSED given in lab by Caroline Nj, RN in Left Antecubital via Peripheral IV. Ordchristiane red by Dae Winkler. 9:16:04 HR=62 bpm, SSRN=090/51 mmhg, SpO2=99.0 % Second Sponge And Instrument Count Done by Dae Winkler. Hypo's: 4, Sponges: 29, Bovie/scratch: 2 9:16:47 Sutures: ~SUTURE~, Blades: 3, Instruments: ~INSTRU~, +3 suture -1 sponge 9:21:05 HR=60 bpm, KCMB=599/51 mmhg, SpO2=99.0 % 9:25:46 Case End (Physician broke scrub) 9:26:06 HR=60 bpm, YERP=640/50 mmhg, SpO2=99.0 % 9:27:56 Steri-strips and a sterile dressing applied to site. The Final Sponge And Instrument Count Done by Dae Winkler. 9:28:03 Hypo's: 4, Sponges: 29, Bovie/scratch: 2 Sutures: 8, Blades: 4, Instruments: 26, Syveck Patches: ~SYVECK PATCH~ 9:28:17 A sling was placed on the affected arm. 9:31:07 HR=60 bpm, UWPJ=447/48 mmhg, SpO2=98.0 % 9:35:41 Patient moved to bed 9:36:49 Vitals capture stopped. End Study - Radiation Exposure Fluoro Time (minutes) 7.6 End Study - Patient Disposition Complications Transferred To No Telemetry Bed
[2018-08-21] MEDS: Sodium Chloride 0.9% 2 ML Flush BID IV.FLUSH SCH ×2 (10:32→23:40)
--- NOTE | 2018-08-21 10:55 | P.PNNP ---
Subjective Interval history: Patient is sleeping with son at bedside. S/P pacemaker placement. Creatinine continues to improve at 1.59 <Ceci Varma - Last Filed: 08/21/18 10:50> Physical Exam Vital signs: Vital Signs 08/20/18 12:00 08/20/18 16:00 08/20/18 20:00 Temperature 97.9 F 97.8 F 98.4 F Pulse Rate 36 L 38 L 38 L Respiratory Rate 18 18 22 Blood Pressure 143/61 H 104/72 114/51 L Pulse Oximetry 97 95 95 08/21/18 00:00 08/21/18 04:00 08/21/18 09:57 Temperature 97.8 F 98.4 F 97.4 F L Pulse Rate 37 L 36 L 68 Respiratory Rate 18 20 22 Blood Pressure 124/63 149/56 H 169/64 H Pulse Oximetry 93 L 94 L 99 08/21/18 10:00 Temperature Pulse Rate 68 Respiratory Rate Blood Pressure Pulse Oximetry Intake & Output 08/20/18 08/21/18 08/21/18 18:59 06:59 18:59 Output Total 600 / 600 550 / 550 Balance -600 / -600 -550 / -550 Weight 61 kg Output: Urine 600 / 600 550 / 550 Other: # Voids 1 Date of Last Bowel Movement 08/20/18 # Bowel Movements 1 Narrative: GENERAL: Sleeping. NAD CARDIOVASCULAR: Bradycardic but regular rhythm without murmurs, gallops, or rubs. Dressing on left upper chest region RESPIRATORY: Breath sounds equal bilaterally. No accessory muscle use. GASTROINTESTINAL: Abdomen soft, non-tender, nondistended. MUSCULOSKELETAL: No cyanosis, or edema. BACK: Dressing intact on back. No CVA tenderness. <Ceci Varma - Last Filed: 08/21/18 10:50> Vital signs: Intake & Output 08/24/18 08/25/18 08/25/18 18:59 06:59 18:59 Other: Date of Last Bowel Movement 08/24/18 <Shelly Kruse - Last Filed: 08/25/18 17:28> Assessment and Plan - Assessment (1) Acute kidney failure Code(s): N17.9 - Acute kidney failure, unspecified Status: Acute (2) Acute exacerbation of CHF (congestive heart failure) Code(s): I50.9 - Heart failure, unspecified Status: Acute Qualifiers: Heart failure type: unspecified Qualified Code(s): I50.9 - Heart failure, unspecified (3) Elevated troponin Code(s): R74.8 - Abnormal levels of other serum enzymes Status: Acute - Plan Patient develop Acute kidney injury. Most likely has pre renal and possible ATN. Renal ultrasound with mildly echogenic kidneys consistent with medical renal disease. No evidence for obstructive uropathy. Creatinine continues to improve at 1.59 Good urinary output Plan Continue to hold Diuretics Encourage oral intake Avoid nephrotoxins including NSAIDS and IV contrast Follow the urine out put and BMP. From nephrology stand point patient is cleared for discharge will need outpatient followup. <Ceci Varma - Last Filed: 08/21/18 10:50> - Assessment (1) Acute kidney failure Code(s): N17.9 - Acute kidney failure, unspecified Status: Acute (2) Acute exacerbation of CHF (congestive heart failure) Code(s): I50.9 - Heart failure, unspecified Status: Acute Qualifiers: Heart failure type: unspecified Qualified Code(s): I50.9 - Heart failure, unspecified (3) Elevated troponin Code(s): R74.8 - Abnormal levels of other serum enzymes Status: Acute - Plan Patient seen an examined, agree with above. Creatinine is better, 1.59. Can be discharge from Nephrology, with out patient follow up. <Shelly Kruse - Last Filed: 08/25/18 17:28>
[2018-08-21] MEDS: Senna/Docusate Sodium 8.6/50 MG Tablet PO SCH ×2 (10:59→21:27)
[2018-08-21] MEDS: hydrALAZINE 50 MG Tablet PO SCH ×2 (10:59→21:27)
[2018-08-21] MEDS: Pantoprazole Inj 40 MG Vial IV.PUSH SCH ×2 (10:59→23:55)
--- NOTE | 2018-08-21 11:02 | MA ---
cc: Dae Winkler MD, Ashraf S MD DATE: 08/21/2018 DATE OF PROCEDURE: 08/21/2012. INDICATION: Complete heart block. DESCRIPTION OF PROCEDURE: After obtaining informed consent, the patient was brought to the cardiac catheterization lab and prepped in the usual sterile technique. Left infraclavicular area was prepped and 20 mL of 1% lidocaine was used for local anesthesia. Using the modified Seldinger technique, the left subclavian vein was accessed and the pocket was then made using a #10 blade and Bovie cautery dissection. Another stick was made to access the left subclavian vein and another 0.035 J-wire was placed in the vein. Over those wires, two 6-Georgian peel-away sheaths were inserted. An RV lead from [employer] Solia S53 with a reference #[id number], serial #[id number] was advanced and placed in the mid to upper septum and secured as an active lead and achieving an R-wave of 10.2 millivolts with a pacing impedance stable at 585 ohms and a threshold of 0.9 volts at 0.4 milliseconds. This was then sutured to the pectoralis muscle using 2.0 silk suture. Through the other sheath, an atrial lead from [employer] Solia S45 reference #[id number] with a serial #[id number] was then advanced and secured in the right atrial appendage (active lead) achieving a P-wave of 1.8 millivolts, the pacing impedance stable at 446 ohms with a threshold of 1 at 0.4 milliseconds. Both leads were checked for diaphragmatic stimulation at 10 volts and there was none. The atrial lead was also sutured in the pocket using a 2.0 silk suture and both were secured into the Edora 8 DR-T generator from [employer], reference #[id number], serial #[id number]. This was also sutured in the pocket using the same 2.0 silk suture. While placing the leads, there was vancomycin soaked Ray-Rigo placed in the pocket, which was then removed when we attached the leads to the generator and irrigating the pocket with vancomycin solution was also done. The subcutaneous layer was then sutured using a 3.0 Vicryl suture, followed by suturing the subcuticular layer in a continuous fashion using a 4.0 Vicryl suture. The patient tolerated the procedure well without acute complication at the time of dictation. PACEMAKER SETUP: DDDR 60/120. MODE SWITCH: On. Holters are on for now. MD LAVELL Dallas/ts , 09:32 AM , 09:40 AM
[2018-08-21] MEDS: Sod Chloride 0.9% Inj 1,000 ML IV.SIG SCH (11:06)
--- NOTE | 2018-08-21 13:41 | XR ---
EXAM DATE: 08/21/2018 12:18 PM EDT AGE/SEX: 88 years / Female INDICATIONS: Pneumothorax. CLINICAL DATA: This is the patient's initial encounter. Patient reports that signs and symptoms have been present for 1 day and indicates a pain score of 0/10. MEDICAL/SURGICAL HISTORY: Gastroesophageal reflux disease. Hypercholesterolemia. Hypertension . dementia, diabetes, diaphragmatic hernia Hysterectomy. COMPARISON: [facility] [place], 08/13/2018. . FINDINGS: Diffuse interstitial prominence with patchy airspace disease particularly in the mid to lower lung zo ruthie. Cardiac silhouette is stable. Interval placement of dual-lead pacemaker with leads projecting ov er the right atrium and right ventricle. No significant pneumothorax. Remainder of exam is unchanged. CONCLUSION: 1. Interval placement of dual-lead pacemaker with leads projecting over the right atrium and ventric le. No pneumothorax. 2. Persistent pulmonary edema pattern. Electronically signed by: Howard Martinez MD 08/21/2018 1:39 PM EDT
--- NOTE | 2018-08-21 15:01 | P.PN ---
Subjective Interval history: Patient had pacemaker placed. She feels sleepy at this time. Family her son very supportive with bedside. Patient denies any chest pain at this time however says she has some pain at the surgical site where the dressing is. No back pain. No nausea or vomiting. No abdominal pain. Physical Exam Vital signs: Vital Signs 08/20/18 16:00 08/20/18 20:00 08/21/18 00:00 Temperature 97.8 F 98.4 F 97.8 F Pulse Rate 38 L 38 L 37 L Respiratory Rate 18 Blood Pressure 104/72 114/51 L 124/63 Pulse Oximetry 95 95 93 L 08/21/18 04:00 08/21/18 09:57 08/21/18 10:00 Temperature 98.4 F 97.4 F L Pulse Rate 36 L 68 68 Respiratory Rate 20 22 Blood Pressure 149/56 H 169/64 H Pulse Oximetry 94 L 99 08/21/18 10:52 08/21/18 11:47 08/21/18 13:00 Temperature Pulse Rate 70 75 72 Respiratory Rate 22 Blood Pressure 163/70 H Pulse Oximetry 98 08/21/18 14:38 Temperature 97.5 F L Pulse Rate 71 Respiratory Rate 22 Blood Pressure 145/65 H Pulse Oximetry 94 L Intake & Output 08/20/18 08/21/18 08/21/18 18:59 06:59 18:59 Intake Total 1000 / 1000 Output Total 600 / 600 550 / 550 Balance -600 / -600 -550 / -550 1000 / 1000 Weight 61 kg Intake: IV 1000 / 1000 NS Inj 1,000 ML @ 80 mls/hr IV. 1000 / 1000 SIG .[id number] TERE Rx#:[id number] Output: Urine 600 / 600 550 / 550 Other: # Voids 1 Date of Last Bowel Movement 08/20/18 # Bowel Movements 1 Narrative: GENERAL: Very pleasantly confused 88-year-old female, appearing younger than the stated age, sleeping. Does not appear in acute distress. CARDIOVASCULAR: Regular rhythm without murmurs, gallops, or rubs. Dressing on left upper chest CDI RESPIRATORY: Breath sounds equal bilaterally. No accessory muscle use. GASTROINTESTINAL: Abdomen soft, non-tender, nondistended. MUSCULOSKELETAL: No cyanosis, or edema. BACK: Dressing intact on back. No CVA tenderness. Results - Labs CBC & Chem 7: 08/17/18 05:32 08/21/18 04:54 Laboratory Results - last 24 hr 08/21/18 04:54 Sodium 138 Potassium 4.1 Chloride 107 Carbon Dioxide 22.6 Anion Gap 8 BUN 59 H Creatinine 1.59 H Estimated GFR 31 L Random Glucose 112 H Calcium 8.4 L - Imaging Impressions Chest X-Ray 08/21/18 12:18 CONCLUSION: 1. Interval placement of dual-lead pacemaker with leads projecting over the right atrium and ventricle. No pneumothorax. 2. Persistent pulmonary edema pattern. Assessment and Plan - Plan New onset CHF, BNP 615. Acute on chronic diastolic heart failure-echo with LVEF 60-65%, Severe TR, Mild MR Mild AR , severe Pulmonary Hypertension Acute on chronic respiratory failure requiring 5L O2 by NC Abdominal CT reviewed and shows Moderate-sized bilateral pleural effusions and patchy bilateral lower lobe. -patient is currently on 3-5 liters of oxygen via N/C IR consulted s/p thoracentesis and follow the fluid studies ABG reassuring -will start on Lasix -Consult to cardiology -2d echo ordered = Marketed elevation of pulmonary pressures on echocardiogram. With bradycardia , however significant hypertensive episode with systolics in the 180s. Will add hydralazine for blood pressure control. Cardiology following. Appreciate assistance. - -The patient is over diuresis with Lasix. DC Lasix. Received gentle IV fluids as patient is more edema. Elevated troponin, troponin .06 -Serial troponin and ekg Third-degree AV block EKG reviewed and findings discussed with cardiology Dr Gaona -Monitor telemetry -Appreciate cardiology input -Hold BB -Cardiology following. -Discussed with Dr. Gaona cardiology. Patient needs to be off Namenda for at least 12 days to wear off, if patient still with third-degree AV block there after patient is a candidate for a ICD. 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 Abdominal CT reviewed and shows Bilateral inguinal hernias with multiple loops of small bowel in the right lateral hernia. No dilated loops of small or large bowel, and a 12 mm densely enhancing lesion in the posterior segment of the right lobe of the liver. -Trend LFTs --Avoid hepatotoxins -Protonix IV BID -Consult GI if LFT's trending up. Reported right hip pain after a questionable fall - check XR right hip -negative - Add Tylenol as needed for pain control. Hypertension, currently elevated -Resumed home losartan -Avoid beta blockers = 08/13. Blood pressure is elevated in the 180s. Start on hydralazine scheduled. Likely bradycardia is reactive secondary to hypertension. Dementia - resume home meds Fall consult PT. DVT prophylaxis: Heparin sq Discharge Planning: DC to SNF (PO), pending improvement and pending cardiology clearance Discussed with Dr. Gaona cardiology. Patient needs to be off Namenda for at least 12 days to wear off, if patient still with third-degree AV block there after patient is a candidate for a ICD. The patient and his family is updated about the plan and they agree to it. 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 Kidney function is improving slowly.
[2018-08-22] MEDS: Sod Chloride 0.9% Inj 1,000 ML IV.SIG SCH ×2 (00:12→12:45)
[2018-08-22 05:41] LABS: Calcium 8.8 mg/dL (8.5-10.1); Carbon Dioxide 20.4 meq/L (21.0-32.0); Potassium 3.9 meq/L (3.5-5.1)
[2018-08-22] MEDS: Sodium Chloride 0.9% 2 ML Flush BID IV.FLUSH SCH ×2 (08:36→20:28)
[2018-08-22] MEDS: hydrALAZINE 50 MG Tablet PO SCH ×2 (08:36→20:23)
[2018-08-22] MEDS: Senna/Docusate Sodium 8.6/50 MG Tablet PO SCH ×2 (08:36→20:24)
--- NOTE | 2018-08-22 11:18 | XR ---
EXAM DATE: 08/22/2018 12:00 AM EDT AGE/SEX: 88 years / Female INDICATIONS: Shortness of breath. CLINICAL DATA: This is the patient's subsequent encounter. Patient reports that signs and symptoms h ave been present for 1 week and indicates a pain score of 8/10. MEDICAL/SURGICAL HISTORY: Hypertension. Pacemaker. Cholecystectomy. COMPARISON: C, CHEST 1V SINGLE AP, 08/21/2018. . FINDINGS: A pacing implement is present with control pack over left upper chest. There is persistent vascular c ongestion and predominantly basilar and perihilar interstitial and alveolar opacity. Small effusions present. Cardiac contours are grossly unchanged. CONCLUSION: No significant change Electronically signed by: Angel Kimble MD 08/22/2018 11:16 AM EDT
--- NOTE | 2018-08-22 12:07 | P.PNNP ---
Subjective Interval history: Sitting up in chair. Reports some anxiety. Denies any shortness of breath, nausea or vomiting. <Ceci Varma - Last Filed: 08/22/18 12:04> Physical Exam Vital signs: Vital Signs 08/21/18 13:00 08/21/18 14:00 08/21/18 14:38 Temperature 97.5 F L Pulse Rate 72 72 71 Respiratory Rate 22 Blood Pressure 145/65 H Pulse Oximetry 94 L 08/21/18 15:00 08/21/18 16:00 08/21/18 17:00 Temperature Pulse Rate 72 82 84 Respiratory Rate Blood Pressure Pulse Oximetry 08/21/18 17:07 08/21/18 18:00 08/21/18 19:00 Temperature 98.3 F Pulse Rate 83 82 89 Respiratory Rate 18 20 Blood Pressure 163/73 H Pulse Oximetry 95 93 L 08/21/18 20:00 08/21/18 21:00 08/21/18 22:00 Temperature Pulse Rate 88 88 90 Respiratory Rate Blood Pressure Pulse Oximetry 08/21/18 23:00 08/22/18 00:00 08/22/18 01:00 Temperature 98.3 F Pulse Rate 89 92 H 92 H Respiratory Rate 20 Blood Pressure 163/73 H Pulse Oximetry 93 L 08/22/18 02:00 08/22/18 03:00 08/22/18 04:00 Temperature 98.3 F Pulse Rate 92 H 90 90 Respiratory Rate 20 Blood Pressure 154/69 H Pulse Oximetry 93 L 08/22/18 05:00 08/22/18 05:05 08/22/18 06:00 Temperature Pulse Rate 92 H 98 H 92 H Respiratory Rate 24 Blood Pressure Pulse Oximetry 08/22/18 07:00 08/22/18 08:00 08/22/18 09:00 Temperature 97.9 F Pulse Rate 103 H 103 H 103 H Respiratory Rate 32 H Blood Pressure 188/76 H Pulse Oximetry 94 L 08/22/18 10:00 Temperature Pulse Rate 97 H Respiratory Rate Blood Pressure Pulse Oximetry Intake & Output 08/21/18 08/22/18 08/22/18 18:59 06:59 18:59 Intake Total 1220 / 1220 1920 / 1920 Output Total 300 / 300 400 / 400 Balance 920 / 920 1520 / 1520 Weight 60.7 kg Intake: IV 1100 / 1100 1200 / 1200 NS Inj 1,000 ML @ 80 mls/hr IV. 1000 / 1000 1000 / 1000 SIG .[id number] TERE Rx#:[id number] Ancef Inj 1,000 MG In NS Inj 100 / 100 200 / 200 100 ML @ 200 mls/hr IV.SIG Q8H TERE Rx#:[id number] Oral 120 / 120 720 / 720 Output: Urine 300 / 300 400 / 400 Other: # Voids 1 Narrative: GENERAL: Alert, NAD CARDIOVASCULAR: Bradycardic but regular rhythm without murmurs, gallops, or rubs. Dressing on left upper chest region RESPIRATORY: Breath sounds equal bilaterally. No accessory muscle use. GASTROINTESTINAL: Abdomen soft, non-tender, nondistended. MUSCULOSKELETAL: No cyanosis, or edema. BACK: Dressing intact on back. No CVA tenderness. Assessment and Plan <Ceci Varma - Last Filed: 08/22/18 12:04> Assessment and Plan - Assessment (1) Acute kidney failure Code(s): N17.9 - Acute kidney failure, unspecified Status: Acute (2) Acute exacerbation of CHF (congestive heart failure) Code(s): I50.9 - Heart failure, unspecified Status: Acute Qualifiers: Heart failure type: unspecified Qualified Code(s): I50.9 - Heart failure, unspecified (3) Elevated troponin Code(s): R74.8 - Abnormal levels of other serum enzymes Status: Acute - Plan Patient develop Acute kidney injury. Most likely has pre renal and possible ATN. Renal ultrasound with mildly echogenic kidneys consistent with medical renal disease. No evidence for obstructive uropathy. Creatinine continues to improve at 1.09 Good urinary output Plan Continue to hold Diuretics Encourage oral intake Avoid nephrotoxins including NSAIDS and IV contrast Follow the urine out put and BMP. With improvement in creatinine Nephrology will sign off, see only PRN <Ceci Varma - Last Filed: 08/22/18 12:04> - Assessment (1) Acute kidney failure Code(s): N17.9 - Acute kidney failure, unspecified Status: Acute (2) Acute exacerbation of CHF (congestive heart failure) Code(s): I50.9 - Heart failure, unspecified Status: Acute Qualifiers: Heart failure type: unspecified Qualified Code(s): I50.9 - Heart failure, unspecified (3) Elevated troponin Code(s): R74.8 - Abnormal levels of other serum enzymes Status: Acute - Plan Patient seen and examined, agree with above. Creatinine is better, will sign off from Nephrology, call again if needed. <Shelly Kruse - Last Filed: 08/26/18 18:07>
[2018-08-22] MEDS: Pantoprazole Inj 40 MG Vial IV.PUSH SCH (12:45)
[2018-08-22] MEDS: ALPRAZolam 0.25 MG Tablet PO PRN ×2 (12:45→20:24)
--- NOTE | 2018-08-22 12:50 | MB ---
cc: Dae Winkler MD,Marleni Pryor MD DATE: 08/12/2018 ADDENDUM ASSESSMENT AND RECOMMENDATIONS: 1. Possible congestive heart failure (probably some degree of diastolic heart failure). No prior history of congestive heart failure. She had a thoracentesis and we will await the results of the analysis. She has significant pulmonary hypertension, which does indicate some degree of underlying pulmonary disease, for which would consider a pulmonary evaluation. However, I do not believe that this latest presentation is all diastolic heart failure. As I said, there might be some pulmonary involvement. Also, her confusion is not really a sign of diastolic heart failure and that needs to be probably looked into more by possibly imaging her brain with a CT or an MRI. 2. High-degree atrioventricular block noted on her electrocardiogram and telemetry, which might be contributing to low cardiac output from the bradycardia and diastolic heart failure. Her Namenda can be a cause of that and this will be discontinued. Unfortunately, the Namenda half life is 60-80 hours, so we will need to wait a few days prior to making a decision for the need for permanent pacemaker placement. A complete set of electrolytes as well as a TSH and free T4 levels will be checked. The telemetry strips are full of artifact and the nurse and the charge nurse were notified to fix the electrodes so we have meaningful data. 3. She had an echocardiogram that revealed normal left ventricular systolic function and no significant valve pathology except for severe tricuspid regurgitation and severe pulmonary hypertension for which, as mentioned, a pulmonary evaluation may be beneficial. D-dimer will be checked and if elevated, then a chest CT angiogram will be ordered. 4. Further evaluation of her liver lesion and elevated white count up to the medical team's recommendations. 5. I attempted contacting the son at the phone number provided in the chart; however, there was no answer. 6. Hypertension. I agree with resuming Losartan. 7. Nonspecific troponin elevation, likely related to her current presentation with possibly some degree of diastolic failure. It is worth noting that she had a cardiac catheterization in 2012 revealing no significant disease and her lipids have been in good control since then. She had an echocardiogram in January of this year that showed normal left ventricular systolic function with [id number] mitral regurgitation/subtle prolapse, mild pulmonary regurgitation and mild to moderate tricuspid regurgitation with a pulmonary artery systolic pressure of 46 mmHg. Thank you for the consultation. MD LAVELL Dallas/kristal , 08:51 PM , 09:00 PM
--- NOTE | 2018-08-22 17:11 | P.PNCA ---
Subjective Interval history: Lying in a chair in no apparent distress. Somewhat anxious. No pain. Medications and Allergies Active Medications: Active Medications Al Hydroxide/Mg Hydroxide (Milk Of Magnesia Liq) 30 ml PO Q12H PRN PRN Reason: Mild Constipation Albuterol (Albuterol Neb (Prn)) 1.25 mg NEB Q4HR NEB PRN PRN Reason: sob Last Admin: 08/22/18 05:05 Dose: 1.25 mg Alprazolam (Xanax) 0.125 mg PO Q6H PRN PRN Reason: anxiety Last Admin: 08/22/18 12:45 Dose: 0.125 mg Bisacodyl (Dulcolax Supp) 10 mg RECTAL DAILY PRN PRN Reason: SEVERE CONSITIPATION Enalaprilat (Vasotec Inj) 1.25 mg IV.PUSH Q8H PRN PRN Reason: SBP > 180 or DBP >100 Last Admin: 08/12/18 09:32 Dose: 1.25 mg Hydralazine HCl (Apresoline) 50 mg PO BID [facility] Last Admin: 08/22/18 08:36 Dose: 50 mg Sodium Chloride (Ns Inj) 1,000 mls @ 80 mls/hr IV.SIG .[id number] [facility] Last Infusion: 08/22/18 13:09 Dose: 80 mls/hr Lactulose (Lactulose Liq) 30 ml PO DAILY PRN PRN Reason: SEVERE CONSITIPATION Last Admin: 08/20/18 10:15 Dose: 30 ml Losartan Potassium (Cozaar) 50 mg PO HS [facility] Last Admin: 08/21/18 21:26 Dose: 50 mg Miscellaneous Information ([facility] Nursing Information) 0 each OTHER [facility] Ondansetron HCl (Zofran Inj) 4 mg IV.PUSH Q6H PRN PRN Reason: NAUSEA OR VOMITING Pantoprazole Sodium (Protonix Inj) 40 mg IV.PUSH Q12H [facility] Last Admin: 08/22/18 12:45 Dose: 40 mg Senna/Docusate Sodium (Carolyn-Colace) 1 tab PO BID [facility] Last Admin: 08/22/18 08:36 Dose: 1 tab Sennosides (Senokot) 17.2 mg PO Q12H PRN PRN Reason: Moderate Constipation Sodium Chloride (Ns Flush) 2 ml IV.FLUSH BID [facility] Last Admin: 08/22/18 08:36 Dose: 2 ml Sodium Chloride (Ns Flush) 2 ml IV.FLUSH PRN PRN PRN Reason: FLUSH AFTER USING IV ACCESS Tramadol HCl (Ultram) 50 mg PO Q8H PRN PRN Reason: PAIN SCALE 1 TO 10 Last Admin: 08/21/18 23:58 Dose: 50 mg Allergies Allergy/AdvReac Type Severity Reaction Status Date / Time No Known Allergies Allergy Uncoded 05/14/17 17:16 Home Medications Medication Instructions Recorded Confirmed Type aspirin [Aspirin Low Dose] 81 mg PO DAILY 08/11/18 08/11/18 History losartan 50 mg PO DAILY 08/11/18 08/11/18 History memantine [Namenda] 10 mg PO BID 08/11/18 08/11/18 History simvastatin 10 mg PO QPM 08/11/18 08/11/18 History Physical Exam Vital signs: Vital Signs 08/21/18 17:00 08/21/18 17:07 08/21/18 18:00 Temperature Pulse Rate 84 83 82 Respiratory Rate 18 Blood Pressure Pulse Oximetry 95 08/21/18 19:00 08/21/18 20:00 08/21/18 21:00 Temperature 98.3 F Pulse Rate 89 88 88 Respiratory Rate 20 Blood Pressure 163/73 H Pulse Oximetry 93 L 08/21/18 22:00 08/21/18 23:00 08/22/18 00:00 Temperature 98.3 F Pulse Rate 90 89 92 H Respiratory Rate 20 Blood Pressure 163/73 H Pulse Oximetry 93 L 08/22/18 01:00 08/22/18 02:00 08/22/18 03:00 Temperature 98.3 F Pulse Rate 92 H 92 H 90 Respiratory Rate 20 Blood Pressure 154/69 H Pulse Oximetry 93 L 08/22/18 04:00 08/22/18 05:00 08/22/18 05:05 Temperature Pulse Rate 90 92 H 98 H Respiratory Rate 24 Blood Pressure Pulse Oximetry 08/22/18 06:00 08/22/18 07:00 08/22/18 08:00 Temperature 97.9 F Pulse Rate 92 H 103 H 103 H Respiratory Rate 32 H Blood Pressure 188/76 H Pulse Oximetry 94 L 08/22/18 09:00 08/22/18 10:00 08/22/18 11:00 Temperature 98.2 F Pulse Rate 103 H 97 H 99 H Respiratory Rate 24 Blood Pressure 149/89 H Pulse Oximetry 96 08/22/18 12:00 08/22/18 13:00 08/22/18 14:00 Temperature Pulse Rate 96 H 90 84 Respiratory Rate Blood Pressure Pulse Oximetry 08/22/18 15:00 08/22/18 15:54 Temperature 98 F Pulse Rate 89 89 Respiratory Rate 26 H Blood Pressure 141/64 H Pulse Oximetry 97 Intake & Output 08/21/18 08/22/18 08/22/18 18:59 06:59 18:59 Intake Total 1220 / 1220 1920 / 1920 600 / 600 Output Total 300 / 300 400 / 400 Balance 920 / 920 1520 / 1520 600 / 600 Weight 60.7 kg Intake: IV 1100 / 1100 1200 / 1200 600 / 600 NS Inj 1,000 ML @ 80 mls/hr IV. 1000 / 1000 1000 / 1000 600 / 600 SIG .[id number] TERE Rx#:[id number] Ancef Inj 1,000 MG In NS Inj 100 / 100 200 / 200 100 ML @ 200 mls/hr IV.SIG Q8H TERE Rx#:[id number] Oral 120 / 120 720 / 720 Output: Urine 300 / 300 400 / 400 Other: # Voids 1 - Routine HEENT Exam Head: Present: normocephalic, atraumatic - Routine Neck Exam Present: supple, normal carotid upstroke. Absent: JVD, thyromegaly - Routine Respiratory Exam Present: rales Comments: Diminished air entry at the bases bilaterally with crepitations. Pacemaker site intact with no hematoma or ecchymosis. - Routine Cardiovascular Exam Present: S1, S2, S4 Comments: 2/6 systolic murmur at the left sternal border and across the precordium. - Routine Abdominal Exam Present: soft, normoactive bowel sounds. Absent: tenderness, mass - Routine Extremities Exam Absent: cyanosis, clubbing, edema - Routine Skin Exam Present: intact - Routine Neurological Exam Present: alert Pleasantly confused [unchanged] Results 08/17/18 05:32 08/22/18 03:49 Comprehensive Metabolic Panel 08/21/18 08/22/18 Range/Units 04:54 03:49 Sodium 138 142 (136-145) meq/L Potassium 4.1 3.9 (3.5-5.1) meq/L Chloride 107 112 H (98-107) meq/L Carbon Dioxide 22.6 20.4 L (21.0-32.0) meq/L BUN 59 H 39 H (7-18) mg/dL Creatinine 1.59 H 1.05 H (0.50-1.00) mg/dL Calcium 8.4 L 8.8 (8.5-10.1) mg/dL Intake and Output 08/22/18 08/22/18 08/22/18 06:59 14:59 22:59 Intake Total 1920 / 1920 600 / 600 Output Total 400 / 400 Balance 1520 / 1520 600 / 600 Intake: IV 1200 / 1200 600 / 600 NS Inj 1,000 ML @ 80 mls/hr IV. 1000 / 1000 600 / 600 SIG .[id number] TERE Rx#:[id number] Ancef Inj 1,000 MG In NS Inj 200 / 200 100 ML @ 200 mls/hr IV.SIG Q8H TERE Rx#:[id number] Oral 720 / 720 Output: Urine 400 / 400 Other: Weight 60.7 kg - Imaging and Cardiology Imaging: Impressions Chest X-Ray 08/21/18 12:18 CONCLUSION: 1. Interval placement of dual-lead pacemaker with leads projecting over the right atrium and ventricle. No pneumothorax. 2. Persistent pulmonary edema pattern. Chest X-Ray 08/22/18 00:00 CONCLUSION: No significant change Assessment and Plan - Plan 1. Acute diastolic heart failure-echo with LVEF 60-65%, Severe TR, Mild MR Mild AR , severe Pulmonary Hypertension Improved. Renal insufficiency improved and I agree with diuretics. Wean off O2 as tolerated and keep O2 sats greater than 90%. 2. COMPLETE HEART BLOCK Status post permanent dual chamber pacemaker. Pacemaker site intact. Normal pacemaker function. Chest x-ray post procedure showing no pneumothorax. 3. Hypertension- Can start Coreg now after pacemaker. DC hydralazine. Increase losartan dose and follow-up on blood pressure response. If hemodynamically she continues to be stable and we have weaned off O2 then she can be discharged from a cardiac standpoint with follow-up with me in 1 week.
--- NOTE | 2018-08-22 17:58 | P.PN ---
Subjective Interval history: late entry The patient was seen earlier today She was noted more agitated in the morning and was at the nursing station, started Xanax. Family son very supportive came at bedside patient anxiety improved with meds and by seeing her son Patient lives with son who is very supportive Patient denies having sob, hs some chst pain at the surgical site. Dressing removed has steri strios. PM functioning well Patient still feels weak Eating better today per son Physical Exam Vital signs: Vital Signs 08/21/18 18:00 08/21/18 19:00 08/21/18 20:00 Temperature 98.3 F Pulse Rate 82 89 88 Respiratory Rate 20 Blood Pressure 163/73 H Pulse Oximetry 93 L 08/21/18 21:00 08/21/18 22:00 08/21/18 23:00 Temperature 98.3 F Pulse Rate 88 90 89 Respiratory Rate 20 Blood Pressure 163/73 H Pulse Oximetry 93 L 08/22/18 00:00 08/22/18 01:00 08/22/18 02:00 Temperature Pulse Rate 92 H 92 H 92 H Respiratory Rate Blood Pressure Pulse Oximetry 08/22/18 03:00 08/22/18 04:00 08/22/18 05:00 Temperature 98.3 F Pulse Rate 90 90 92 H Respiratory Rate 20 Blood Pressure 154/69 H Pulse Oximetry 93 L 08/22/18 05:05 08/22/18 06:00 08/22/18 07:00 Temperature 97.9 F Pulse Rate 98 H 92 H 103 H Respiratory Rate 24 32 H Blood Pressure 188/76 H Pulse Oximetry 94 L 08/22/18 08:00 08/22/18 09:00 08/22/18 10:00 Temperature Pulse Rate 103 H 103 H 97 H Respiratory Rate Blood Pressure Pulse Oximetry 08/22/18 11:00 08/22/18 12:00 08/22/18 13:00 Temperature 98.2 F Pulse Rate 99 H 96 H 90 Respiratory Rate 24 Blood Pressure 149/89 H Pulse Oximetry 96 08/22/18 14:00 08/22/18 15:00 08/22/18 15:54 Temperature 98 F Pulse Rate 84 89 89 Respiratory Rate 26 H Blood Pressure 141/64 H Pulse Oximetry 97 Intake & Output 08/21/18 08/22/18 08/22/18 18:59 06:59 18:59 Intake Total 1220 / 1220 1920 / 1920 600 / 600 Output Total 300 / 300 400 / 400 Balance 920 / 920 1520 / 1520 600 / 600 Weight 60.7 kg Intake: IV 1100 / 1100 1200 / 1200 600 / 600 NS Inj 1,000 ML @ 80 mls/hr IV. 1000 / 1000 1000 / 1000 600 / 600 SIG .[id number] TERE Rx#:[id number] Ancef Inj 1,000 MG In NS Inj 100 / 100 200 / 200 100 ML @ 200 mls/hr IV.SIG Q8H TERE Rx#:[id number] Oral 120 / 120 720 / 720 Output: Urine 300 / 300 400 / 400 Other: # Voids 1 Narrative: GENERAL: Very pleasantly confused 88 F appearing younger than the stated age. Alert, in NAD. Anxious earlier CARDIOVASCULAR:Paced. Regular rhythm without murmurs, gallops, or rubs. Bulk dressing on left upper chest region was removed , steri strips in p;lace, no bleeding, no signs of infection. RESPIRATORY: Breath sounds equal bilaterally. No accessory muscle use. GASTROINTESTINAL: Abdomen soft, non-tender, nondistended. MUSCULOSKELETAL: No cyanosis, or edema. BACK: Dressing intact on back. No CVA tenderness. Results - Labs CBC & Chem 7: 08/17/18 05:32 08/22/18 03:49 Laboratory Results - last 24 hr 08/22/18 03:49 Sodium 142 Potassium 3.9 Chloride 112 H Carbon Dioxide 20.4 L Anion Gap 10 BUN 39 H Creatinine 1.05 H Estimated GFR 50 L Random Glucose 111 H Calcium 8.8 - Imaging Impressions Chest X-Ray 08/22/18 00:00 CONCLUSION: No significant change - Procedures PM placement Assessment and Plan - Plan New onset CHF, BNP 615. Acute on chronic diastolic heart failure-echo with LVEF 60-65%, Severe TR, Mild MR Mild AR , severe Pulmonary Hypertension Acute on chronic respiratory failure requiring 5L O2 by [place] Abdominal CT reviewed and shows Moderate-sized bilateral pleural effusions and patchy bilateral lower lobe. -patient is currently on 3-5 liters of oxygen via N/C IR consulted s/p thoracentesis and follow the fluid studies ABG reassuring -will start on Lasix -Consult to cardiology -2d echo ordered = Marketed elevation of pulmonary pressures on echocardiogram. With bradycardia , however significant hypertensive episode with systolics in the 180s. Will add hydralazine for blood pressure control. Cardiology following. Appreciate assistance. - -The patient is over diuresis with Lasix. DC Lasix. Received gentle IV fluids as patient is more edema. Elevated troponin, troponin .06 -Serial troponin and ekg Third-degree AV block EKG reviewed and findings discussed with cardiology Dr Gaona -Monitor telemetry -Appreciate cardiology input -Hold BB -Cardiology following. -Discussed with Dr. Gaona cardiology. Patient needs to be off Namenda for at least 12 days to wear off, if patient still with third-degree AV block there after patient is a candidate for a ICD. 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 Abdominal CT reviewed and shows Bilateral inguinal hernias with multiple loops of small bowel in the right lateral hernia. No dilated loops of small or large bowel, and a 12 mm densely enhancing lesion in the posterior segment of the right lobe of the liver. -Trend LFTs --Avoid hepatotoxins -Protonix IV BID -Consult GI if LFT's trending up. Reported right hip pain after a questionable fall - check XR right hip -negative - Add Tylenol as needed for pain control. Hypertension, currently elevated -Resumed home losartan -Avoid beta blockers = 08/13. Blood pressure is elevated in the 180s. Start on hydralazine scheduled. Likely bradycardia is reactive secondary to hypertension. Dementia - resume home meds Fall consult PT. DVT prophylaxis: Heparin sq Discussed with the patient, family at bedside, nurse Discharge Planning: DC to SNF (PO), pending improvement and pending cardiology clearance Discussed with Dr. Gaona cardiology. Patient needs to be off Namenda for at least 12 days to wear off, if patient still with third-degree AV block there after patient is a candidate for a ICD. The patient and his family is updated about the plan and they agree to it. 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 Kidney function is improving slowly. Patient with CHF exacerbation, DANIELLE on CKD, 3rd degree AV block now with PM. Cardiology following. Patient is DNR, but family aggressive. DC when improved and cleared by cardio. Note: do not give Namenda at DC as held due to heart block
[2018-08-22 19:00] LABS: Calcium 9.3 mg/dL (8.5-10.1); Carbon Dioxide 24.2 meq/L (21.0-32.0); Potassium 3.9 meq/L (3.5-5.1)
[2018-08-22] MEDS: Carvedilol 6.25 MG Tablet PO SCH (20:23)
[2018-08-23] MEDS: Sod Chloride 0.9% Inj 1,000 ML IV.SIG SCH ×2 (04:23→12:01)
[2018-08-23] MEDS: Pantoprazole Inj 40 MG Vial IV.PUSH SCH ×3 (04:25→22:41)
[2018-08-23 05:09] LABS: Calcium 8.6 mg/dL (8.5-10.1); Carbon Dioxide 24.1 meq/L (21.0-32.0); Potassium 4.2 meq/L (3.5-5.1)
[2018-08-23] MEDS: hydrALAZINE 50 MG Tablet PO SCH (09:33)
[2018-08-23] MEDS: Carvedilol 6.25 MG Tablet PO SCH (09:33)
[2018-08-23] MEDS: Sodium Chloride 0.9% 2 ML Flush BID IV.FLUSH SCH ×2 (09:33→21:20)
[2018-08-23] MEDS: Senna/Docusate Sodium 8.6/50 MG Tablet PO SCH ×2 (09:33→21:20)
--- NOTE | 2018-08-23 14:25 | P.DCO ---
- Diagnosis (1) Generalized weakness Status: Acute (2) Acute exacerbation of CHF (congestive heart failure) Status: Acute (3) Acute kidney failure Status: Acute - Physical Therapy Order: Evaluate and treat - Home Health Nursing Order: Medical education Instructions: Home health nurse for medication management - Home Health Aide Order: To assist in: Bathing and personal care, fixed route bus operator and meal prep - Natural Resource Specialist Order: To evaluate: Support services Order: To provide: Long range planning, Community services - Case Management Consult Yes - Certification I have seen patient Yahaira Obrien on 08/23/18. My clinical findings support the need for the requested home health care services because: Limited ability to care for self I certify that my clinical findings support that this patient is homebound because: Unable to use public transportation (2) Acute exacerbation of CHF (congestive heart failure) Qualifiers: Heart failure type: unspecified Qualified Code(s): I50.9 - Heart failure, unspecified
[2018-08-23] MEDS ORDERED: Dextrose 5% in Water Inj 1,000 ML IV.CONT SCH (14:30)
--- NOTE | 2018-08-23 17:21 | P.PNIM ---
Subjective Interval history: Patient confused overnight and this morning. She is agreeable on exam. Says she is feeling right. Denies any chest pain or shortness of breath. Physical Exam Vital signs: Vital Signs 08/22/18 18:00 08/22/18 19:00 08/22/18 20:00 Temperature 98.3 F Pulse Rate 98 H 90 102 H Respiratory Rate 20 Blood Pressure 141/82 H Pulse Oximetry 97 08/22/18 21:00 08/22/18 22:00 08/22/18 23:00 Temperature Pulse Rate 96 H 76 85 Respiratory Rate Blood Pressure Pulse Oximetry 08/22/18 23:06 08/22/18 23:12 08/23/18 00:00 Temperature 97.7 F Pulse Rate 88 66 Respiratory Rate 18 Blood Pressure 144/63 H Pulse Oximetry 95 95 08/23/18 01:00 08/23/18 02:00 08/23/18 03:00 Temperature 98 F Pulse Rate 66 78 64 Respiratory Rate 20 Blood Pressure 125/59 L Pulse Oximetry 95 08/23/18 04:00 08/23/18 05:17 08/23/18 06:00 Temperature Pulse Rate 62 66 68 Respiratory Rate Blood Pressure Pulse Oximetry 08/23/18 07:00 08/23/18 08:00 08/23/18 09:00 Temperature 98.1 F Pulse Rate 71 71 68 Respiratory Rate 18 Blood Pressure 153/64 H Pulse Oximetry 97 08/23/18 10:00 08/23/18 11:00 08/23/18 11:15 Temperature 98.3 F Pulse Rate 64 67 Respiratory Rate 18 Blood Pressure 146/63 H Pulse Oximetry 93 L 95 08/23/18 12:00 08/23/18 13:00 08/23/18 14:00 Temperature Pulse Rate 64 84 79 Respiratory Rate Blood Pressure Pulse Oximetry 08/23/18 15:00 08/23/18 16:00 Temperature 98.7 F Pulse Rate 78 77 Respiratory Rate 20 Blood Pressure 147/64 H Pulse Oximetry 96 95 Intake & Output 08/22/18 08/23/18 08/23/18 18:59 06:59 18:59 Intake Total 1100 / 1100 240 / 240 Output Total 200 / 200 Balance 900 / 900 240 / 240 Weight 58.5 kg Intake: IV 600 / 600 NS Inj 1,000 ML @ 80 mls/hr IV. 600 / 600 SIG .[id number] TERE Rx#:[id number] Oral 500 / 500 240 / 240 Output: Urine 200 / 200 Other: # Urine Diapers 2 2 Narrative: GENERAL: Patient sitting up in chair at bedside. Appears comfortable. SKIN: Warm and dry. HEAD: Normocephalic. EYES: No scleral icterus. No injection or drainage. NECK: Supple, trachea midline. No JVD. CARDIOVASCULAR: Regular rate and rhythm without murmurs, gallops, or rubs. RESPIRATORY: Breath sounds equal bilaterally. No accessory muscle use. GASTROINTESTINAL: Abdomen soft, non-tender, nondistended. MUSCULOSKELETAL: No cyanosis, or edema. BACK: Nontender without obvious deformity. No CVA tenderness. Results - Labs CBC & Chem 7: 08/17/18 05:32 08/23/18 04:09 Laboratory Results - last 24 hr 08/22/18 08/23/18 18:12 04:09 Sodium 143 146 H Potassium 3.9 4.2 Chloride 111 H 116 H Carbon Dioxide 24.2 24.1 Anion Gap 8 6 BUN 32 H 30 H Creatinine 1.32 H 1.05 H Estimated GFR 38 L 50 L Random Glucose 115 H 114 H Calcium 9.3 8.6 - Procedures PM placement Assessment and Plan - Assessment (1) Generalized weakness Code(s): R53.1 - Weakness Status: Acute (2) Acute exacerbation of CHF (congestive heart failure) Code(s): I50.9 - Heart failure, unspecified Status: Acute (3) Acute kidney failure Code(s): N17.9 - Acute kidney failure, unspecified Status: Acute - Plan New onset CHF, BNP 615. Acute on chronic diastolic heart failure-echo with LVEF 60-65%, Severe TR, Mild MR Mild AR , severe Pulmonary Hypertension Acute on chronic respiratory failure requiring 5L O2 by [place] Abdominal CT reviewed and shows Moderate-sized bilateral pleural effusions and patchy bilateral lower lobe. -patient is currently on 3-5 liters of oxygen via N/C IR consulted s/p thoracentesis and follow the fluid studies ABG reassuring -will start on Lasix -Consult to cardiology -2d echo ordered = Marketed elevation of pulmonary pressures on echocardiogram. With bradycardia , however significant hypertensive episode with systolics in the 180s. Will add hydralazine for blood pressure control. Cardiology following. Appreciate assistance. - -The patient is over diuresis with Lasix. DC Lasix. Received gentle IV fluids as patient is more edema. = Discussed with cardiology. Continue IV Lasix, expect discharge home tomorrow with home health off of Lasix. Appreciate cardiology assistance. Elevated troponin, troponin .06 -Serial troponin and ekg Third-degree AV block EKG reviewed and findings discussed with cardiology Dr Gaona -Monitor telemetry -Appreciate cardiology input -Hold BB -Cardiology following. -Discussed with Dr. Gaona cardiology. Patient needs to be off Namenda for at least 12 days to wear off, if patient still with third-degree AV block there after patient is a candidate for a ICD. 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 Abdominal CT reviewed and shows Bilateral inguinal hernias with multiple loops of small bowel in the right lateral hernia. No dilated loops of small or large bowel, and a 12 mm densely enhancing lesion in the posterior segment of the right lobe of the liver. Likely secondary to CHF. Resolved. Reported right hip pain after a questionable fall - check XR right hip -negative - Add Tylenol as needed for pain control. Hypertension, currently elevated -Resumed home losartan -Avoid beta blockers = 08/13. Blood pressure is elevated in the 180s. Start on hydralazine scheduled. Likely bradycardia is reactive secondary to hypertension. = 08/23. Blood pressure acceptable. Cardiology following. Appreciate assistance. Dementia - resume home meds = Namenda had been held due to side effect of bradycardia = 08/23. Now that patient has pacemaker, will restart Namenda Fall consult PT. DVT prophylaxis: Heparin sq Discussed with the patient, family at bedside, nurse Discharge Planning: DC to SNF (PO), pending improvement and pending cardiology clearance Discussed with Dr. Gaona cardiology. Patient needs to be off Namenda for at least 12 days to wear off, if patient still with third-degree AV block there after patient is a candidate for a ICD. The patient and his family is updated about the plan and they agree to it. 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 Kidney function is improving slowly. Patient with CHF exacerbation, DANIELLE on CKD, 3rd degree AV block now with PM. Cardiology following. Patient is DNR, but family aggressive. DC when improved and cleared by cardio. Note: do not give Namenda at DC as held due to heart block Discharge Planning: Patient expected to go home in 1-2 days with home health, son. Have recommended SNF, however patient and son would like to go home with home health (2) Acute exacerbation of CHF (congestive heart failure) Qualifiers: Heart failure type: unspecified Qualified Code(s): I50.9 - Heart failure, unspecified
[2018-08-23] MEDS: Carvedilol 12.5 MG Tablet PO SCH (21:20)
[2018-08-24 05:25] LABS: Baso # (Auto) 0.1 th/mm3 (0.0-0.2); Baso % (Auto) 0.8 % (0.0-2.0); Eos # (Auto) 0.2 th/mm3 (0.0-0.4); Eos % (Auto) 2.7 % (0.0-4.0); Hematocrit 31.9 % (35.0-46.0); Hemoglobin 10.8 gm/dL (11.6-15.3); Lymph # (Auto) 0.9 th/mm3 (1.0-4.8); Lymph % (Auto) 11.8 % (9.0-44.0); Mean Corpuscular HGB Conc 33.8 % (32.0-36.0); Mean Corpuscular Hemoglobin 30.6 pg (27.0-34.0); Mean Corpuscular Volume 90.3 fL (80.0-100.0); Mean Platelet Volume 12.4 fL (7.0-11.0); Mono # (Auto) 0.9 th/mm3 (0.0-0.9); Mono % (Auto) 12.3 % (0.0-8.0); Neut # (Auto) 5.5 th/mm3 (1.8-7.7); Neut % (Auto) 72.4 % (16.0-70.0); Platelet Count 132 th/mm3 (150-450); Red Blood Count 3.54 mil/mm3 (4.00-5.30); Red Cell Distribution Width 14.4 % (11.6-17.2); White Blood Count 7.6 th/mm3 (4.0-11.0)
[2018-08-24 05:31] LABS: Albumin 2.4 g/dL (3.4-5.0); Calcium 8.6 mg/dL (8.5-10.1); Carbon Dioxide 25.9 meq/L (21.0-32.0); Magnesium 1.8 mg/dL (1.5-2.5); Phosphorus 2.2 mg/dL (2.5-4.9); Potassium 4.4 meq/L (3.5-5.1)
[2018-08-24] MEDS: Carvedilol 12.5 MG Tablet PO SCH (08:41)
[2018-08-24] MEDS: Sodium Chloride 0.9% 2 ML Flush BID IV.FLUSH SCH (08:41)
[2018-08-24] MEDS: Senna/Docusate Sodium 8.6/50 MG Tablet PO SCH (08:41)
--- NOTE | 2018-08-24 09:37 | P.PNIM ---
Subjective Interval history: Sleeping, wakes up for exam. Disoriented but pleasant and agreeable Physical Exam Vital signs: Vital Signs 08/23/18 10:00 08/23/18 11:00 08/23/18 11:15 Temperature 98.3 F Pulse Rate 64 67 Respiratory Rate 18 Blood Pressure 146/63 H Pulse Oximetry 93 L 95 08/23/18 12:00 08/23/18 13:00 08/23/18 14:00 Temperature Pulse Rate 64 84 79 Respiratory Rate Blood Pressure Pulse Oximetry 08/23/18 15:00 08/23/18 16:00 08/23/18 17:00 Temperature 98.7 F Pulse Rate 78 77 80 Respiratory Rate 20 Blood Pressure 147/64 H Pulse Oximetry 96 95 08/23/18 18:00 08/23/18 19:00 08/23/18 20:00 Temperature 98.3 F Pulse Rate 81 79 88 Respiratory Rate 20 Blood Pressure 150/86 H Pulse Oximetry 95 96 08/23/18 21:00 08/23/18 22:00 08/23/18 23:00 Temperature 98.3 F Pulse Rate 82 76 78 Respiratory Rate 20 Blood Pressure 150/86 H Pulse Oximetry 93 L 08/24/18 00:00 08/24/18 01:00 08/24/18 02:00 Temperature Pulse Rate 70 66 64 Respiratory Rate Blood Pressure Pulse Oximetry 08/24/18 03:00 08/24/18 04:00 08/24/18 05:00 Temperature 98.8 F Pulse Rate 73 64 70 Respiratory Rate 20 Blood Pressure 132/60 Pulse Oximetry 92 L Intake & Output 08/23/18 08/24/18 08/24/18 18:59 06:59 18:59 Intake Total 480 / 480 720 / 720 Balance 480 / 480 720 / 720 Weight 58.2 kg Intake: IV 0 / 0 NS Inj 1,000 ML @ 80 mls/hr IV. 0 / 0 SIG .[id number] [facility] Rx#:[id number] Oral 480 / 480 720 / 720 Other: # Voids 4 3 Date of Last Bowel Movement 08/20/18 08/23/18 # Bowel Movements 1 Narrative: GENERAL: Patient s sleeping, wakes up for exam. Appears comfortable. SKIN: Warm and dry. HEAD: Normocephalic. EYES: No scleral icterus. No injection or drainage. NECK: Supple, trachea midline. No JVD. CARDIOVASCULAR: Regular rate and rhythm without murmurs, gallops, or rubs. RESPIRATORY: Breath sounds equal bilaterally. No accessory muscle use. GASTROINTESTINAL: Abdomen soft, non-tender, nondistended. MUSCULOSKELETAL: No cyanosis, or edema. BACK: Nontender without obvious deformity. No CVA tenderness. Results - Labs CBC & Chem 7: 08/24/18 04:55 08/24/18 04:55 Laboratory Results - last 24 hr 08/24/18 08/24/18 04:55 04:55 WBC 7.6 RBC 3.54 L Hgb 10.8 L Hct 31.9 L MCV 90.3 MCH 30.6 MCHC 33.8 RDW 14.4 Plt Count 132 L MPV 12.4 H Neut % (Auto) 72.4 H Lymph % (Auto) 11.8 Lane % (Auto) 12.3 H Eos % (Auto) 2.7 Baso % (Auto) 0.8 Neut # (Auto) 5.5 Lymph # (Auto) 0.[address] # (Auto) 0.9 Eos # (Auto) 0.2 Baso # (Auto) 0.1 WBC Differential . Differential Comment Auto diff final Sodium 146 H Potassium 4.4 Chloride 114 H Carbon Dioxide 25.9 Anion Gap 6 BUN 25 H Creatinine 0.96 Estimated GFR 55 L Random Glucose 101 Calcium 8.6 Phosphorus 2.2 L Magnesium 1.8 Albumin 2.4 L - Procedures PM placement Assessment and Plan - Assessment (1) Generalized weakness Code(s): R53.1 - Weakness Status: Acute (2) Acute exacerbation of CHF (congestive heart failure) Code(s): I50.9 - Heart failure, unspecified Status: Acute (3) Acute kidney failure Code(s): N17.9 - Acute kidney failure, unspecified Status: Acute - Plan New onset CHF, BNP 615. Acute on chronic diastolic heart failure-echo with LVEF 60-65%, Severe TR, Mild MR Mild AR , severe Pulmonary Hypertension Acute on chronic respiratory failure requiring 5L O2 by [place] Abdominal CT reviewed and shows Moderate-sized bilateral pleural effusions and patchy bilateral lower lobe. -patient is currently on 3-5 liters of oxygen via N/C IR consulted s/p thoracentesis and follow the fluid studies ABG reassuring -will start on Lasix -Consult to cardiology -2d echo ordered = Marketed elevation of pulmonary pressures on echocardiogram. With bradycardia , however significant hypertensive episode with systolics in the 180s. Will add hydralazine for blood pressure control. Cardiology following. Appreciate assistance. - -The patient is over diuresis with Lasix. DC Lasix. Received gentle IV fluids as patient is more edema. = Discussed with cardiology. = Discussed with cardiology yesterday. Patient will not need Lasix at discharge. //Hypernatremia. Sodium 146. Dextrose overnight. Will order additional Lasix this morning. Recheck later. Elevated troponin, troponin .06 -Serial troponin and ekg Third-degree AV block EKG reviewed and findings discussed with cardiology Dr Gaona -Monitor telemetry -Appreciate cardiology input -Hold BB -Cardiology following. -Discussed with Dr. Gaona cardiology. Patient needs to be off Namenda for at least 12 days to wear off, if patient still with third-degree AV block there after patient is a candidate for a ICD. 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 Abdominal CT reviewed and shows Bilateral inguinal hernias with multiple loops of small bowel in the right lateral hernia. No dilated loops of small or large bowel, and a 12 mm densely enhancing lesion in the posterior segment of the right lobe of the liver. Likely secondary to CHF. Resolved. Reported right hip pain after a questionable fall - check XR right hip -negative - Add Tylenol as needed for pain control. Hypertension, currently elevated -Resumed home losartan -Avoid beta blockers = 08/13. Blood pressure is elevated in the 180s. Start on hydralazine scheduled. Likely bradycardia is reactive secondary to hypertension. = 08/23. Blood pressure acceptable. Cardiology following. Appreciate assistance. Dementia - resume home meds = Namenda had been held due to side effect of bradycardia = 08/23. Now that patient has pacemaker, will restart Namenda Fall consult PT. DVT prophylaxis: Heparin sq Discussed with the patient, family at bedside, nurse Discharge Planning: Patient expected to go home in 1-2 days to [facility] rehab. (2) Acute exacerbation of CHF (congestive heart failure) Qualifiers: Heart failure type: unspecified Qualified Code(s): I50.9 - Heart failure, unspecified
--- NOTE | 2018-08-24 09:47 | P.DS ---
Date of admission: 08/12/18 09:26 Primary care physician: Rodolfo Be MD DS: Diagnosis - Discharge Diagnosis (1) Generalized weakness Status: Acute (2) Acute exacerbation of CHF (congestive heart failure) Status: Acute (3) Acute kidney failure Status: Acute DS: Medications - Discharge Medications Prescriptions: hydralazine 50 mg PO TID #90 tab tramadol 50 mg PO Q12HR PRN #4 tab PRN Reason: Pain DS: Summary Hospital Course: New onset CHF, BNP 615. Acute on chronic diastolic heart failure-echo with LVEF 60-65%, Severe TR, Mild MR Mild AR , severe Pulmonary Hypertension Acute on chronic respiratory failure requiring 5L O2 by [place] Abdominal CT reviewed and shows Moderate-sized bilateral pleural effusions and patchy bilateral lower lobe. -patient is currently on 3-5 liters of oxygen via N/C IR consulted s/p thoracentesis and follow the fluid studies ABG reassuring -will start on Lasix -Consult to cardiology -2d echo ordered = Marketed elevation of pulmonary pressures on echocardiogram. With bradycardia , however significant hypertensive episode with systolics in the 180s. Will add hydralazine for blood pressure control. Cardiology following. Appreciate assistance. - -The patient is over diuresis with Lasix. DC Lasix. Received gentle IV fluids as patient is more edema. = Discussed with cardiology. = Discussed with cardiology yesterday. Patient will not need Lasix at discharge. //Hypernatremia. Sodium 146. Dextrose overnight. Will order additional Lasix this morning. Recheck later. Elevated troponin, troponin .06 -Serial troponin and ekg Third-degree AV block EKG reviewed and findings discussed with cardiology Dr Gaona -Monitor telemetry -Appreciate cardiology input -Hold BB -Cardiology following. -Discussed with Dr. Gaona cardiology. Patient needs to be off Namenda for at least 12 days to wear off, if patient still with third-degree AV block there after patient is a candidate for a ICD. 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 Abdominal CT reviewed and shows Bilateral inguinal hernias with multiple loops of small bowel in the right lateral hernia. No dilated loops of small or large bowel, and a 12 mm densely enhancing lesion in the posterior segment of the right lobe of the liver. Likely secondary to CHF. Resolved. Reported right hip pain after a questionable fall - check XR right hip -negative - Add Tylenol as needed for pain control. Hypertension, currently elevated -Resumed home losartan -Avoid beta blockers = 08/13. Blood pressure is elevated in the 180s. Start on hydralazine scheduled. Likely bradycardia is reactive secondary to hypertension. = 08/23. Blood pressure acceptable. Cardiology following. Appreciate assistance. Dementia - resume home meds = Namenda had been held due to side effect of bradycardia = 08/23. Now that patient has pacemaker, will restart Namenda Fall consult PT. DVT prophylaxis: Heparin sq Discussed with the patient, family at bedside, nurse Discharge Planning: Patient expected to go home in 1-[address] [facility] rehab. - Time Spent with Patient Total time spent providing and/or coordinating discharge services: Greater than 30 minutes - Quality: VTE Deep Vein Thrombosis/Pulmonary Embolism Present on Admission: No Exam Vital signs: Vital Signs 08/23/18 10:00 08/23/18 11:00 08/23/18 11:15 Temperature 98.3 F Pulse Rate 64 67 Respiratory Rate 18 Blood Pressure 146/63 H Pulse Oximetry 93 L 95 08/23/18 12:00 08/23/18 13:00 08/23/18 14:00 Temperature Pulse Rate 64 84 79 Respiratory Rate Blood Pressure Pulse Oximetry 08/23/18 15:00 08/23/18 16:00 08/23/18 17:00 Temperature 98.7 F Pulse Rate 78 77 80 Respiratory Rate 20 Blood Pressure 147/64 H Pulse Oximetry 96 95 08/23/18 18:00 08/23/18 19:00 08/23/18 20:00 Temperature 98.3 F Pulse Rate 81 79 88 Respiratory Rate 20 Blood Pressure 150/86 H Pulse Oximetry 95 96 08/23/18 21:00 08/23/18 22:00 08/23/18 23:00 Temperature 98.3 F Pulse Rate 82 76 78 Respiratory Rate 20 Blood Pressure 150/86 H Pulse Oximetry 93 L 08/24/18 00:00 08/24/18 01:00 08/24/18 02:00 Temperature Pulse Rate 70 66 64 Respiratory Rate Blood Pressure Pulse Oximetry 08/24/18 03:00 08/24/18 04:00 08/24/18 05:00 Temperature 98.8 F Pulse Rate 73 64 70 Respiratory Rate 20 Blood Pressure 132/60 Pulse Oximetry 92 L Intake & Output 08/23/18 08/24/18 08/24/18 18:59 06:59 18:59 Intake Total 480 / 480 720 / 720 Balance 480 / 480 720 / 720 Weight 58.2 kg Intake: IV 0 / 0 NS Inj 1,000 ML @ 80 mls/hr IV. 0 / 0 SIG .[id number] TERE Rx#:[id number] Oral 480 / 480 720 / 720 Other: # Voids 4 3 Date of Last Bowel Movement 08/20/18 08/23/18 # Bowel Movements 1 Results Procedures completed during hospitalization: PPM placement Labs on day of discharge: Labs from last 24 hours 08/24/18 08/24/18 04:55 04:55 WBC 7.6 RBC 3.54 L Hgb 10.8 L Hct 31.9 L MCV 90.3 MCH 30.6 MCHC 33.8 RDW 14.4 Plt Count 132 L MPV 12.4 H Neut % (Auto) 72.4 H Lymph % (Auto) 11.8 [place] % (Auto) 12.3 H Eos % (Auto) 2.7 Baso % (Auto) 0.8 Neut # (Auto) 5.5 Lymph # (Auto) 0.9 L [place] # (Auto) 0.9 Eos # (Auto) 0.2 Baso # (Auto) 0.1 WBC Differential . Differential Comment Auto diff final Sodium 146 H Potassium 4.4 Chloride 114 H Carbon Dioxide 25.9 Anion Gap 6 BUN 25 H Creatinine 0.96 Estimated GFR 55 L Random Glucose 101 Calcium 8.6 Phosphorus 2.2 L Magnesium 1.8 Albumin 2.4 L - Impressions ITS Impressions Abdomen/Pelvis CT 08/11/18 17:20 CONCLUSION: 1. Bilateral inguinal hernias with multiple loops of small bowel in the right lateral hernia. No dilated loops of small or large bowel. 2. 12 mm densely enhancing lesion in the posterior segment of the right lobe of the liver. Both malignant and benign causes can create this appearance and recommend complete workup on a nonemergent basis. 3. Moderate-sized bilateral pleural effusions and patchy bilateral lower lobe. Hip X-Ray 08/12/18 00:00 CONCLUSION: Negative trauma study. Minimal degenerative change. Liver Ultrasound 08/12/18 00:00 CONCLUSION: 1. Status post cholecystectomy with prominent common bile duct which may reflect reservoir effect. 2. Small enhancing mass in the posterior right lobe of the liver noted on CT exam is not demonstrated on ultrasound exam. Again, recommend further evaluation on an outpatient nonemergent basis. 3. Small bilateral effusions. Thoracentesis Ultrasound 08/13/18 00:00 CONCLUSION: 1. Uncomplicated thoracentesis. Abdomen/Bladder Ultrasound 08/16/18 00:00 CONCLUSION: 1. Mildly echogenic kidneys consistent with medical renal disease. 2. No evidence for obstructive uropathy. 3. Small bilateral pleural effusions. Chest X-Ray 08/22/18 00:00 CONCLUSION: No significant change Discharge Plan - Discharge Disposition Patient Disposition: 03 Discharge to SNF - Discharge Condition Condition: Stable - Discharge Order Discharge Orders: Discharge Order (Routine); Ordered 08/24/18 Ordered By: Pardeep Winters - Discharge Details Anticipated Discharge Date: 08/24/18 Discharge Comment: Okay to discharge if repeat sodium level below 145 - Physicians Team Primary Care Provider: Rodolfo Be Attending Provider: Pardeep Winters Other Providers: Dae Winkler MD ; [facility] ; Shelly Kruse MD
[2018-08-24 09:56] VITALS: RESP 18
[2018-08-24] MEDS: Pantoprazole Inj 40 MG Vial IV.PUSH SCH (12:16)
[2018-08-24 12:40] VITALS: BP 151/63; PULSE 67; TEMP 98.5; O2SAT 92
== END 2018-08-24 14:41 ==
LOC: NEPE 13:56 → NEDA 13:56 → NEDH 08-12 01:23 → NEPFCDU 08-12 02:45 → N04 08-12 15:58 → HCPC 08-21 09:50
PROVIDERS: ADMIT Internal Medicine; ATTEND Internal Medicine